=== PATIENT | male | born 1965 | race Caucasian/White ===

== ENCOUNTER 2019-08-23 08:35 | Emergency (ER) | payer SELFPAY ==
[2019-08-23 08:48] VITALS: BP 152/96; PULSE 96; RESP 16; TEMP 36.6; O2SAT 99; BMI 19.4
--- NOTE | 2019-08-23 08:55 | CT_ITS ---
WS: [id number] CT ABDOMEN AND PELVIS NONCONTRAST HISTORY: R flank pain; urinary retention TECHNIQUE: Imaging performed through the abdomen and pelvis. Coronal and sagittal reformats are submi tted. All CT scans at [facility] use at least one of these dose optimization techniques: automated exposure control; mA and/or kV adjustment per patient size (includes targeted exams where d ose is matched to clinical indication); or iterative reconstruction. DLP: 502.76 mGy.cm COMPARISON: None available. Lower thorax: Chronic emphysematous changes at the lung bases. No mass or pulmonary nodule or pneumon ia. No pleural effusion. Heart size is normal. Small hiatal hernia. Liver: Normal, no mass or intrahepatic dilatation. Gallbladder: Unremarkable. Pancreas: Poorly visualized. Spleen: Normal. Adrenal glands: Normal RIGHT adrenal gland. Low-attenuation mass measuring 3.3 x 2.2 cm in the LEFT a drenal gland. Hounsfield units are negative. Right kidney: Normal size kidney. There are a few scattered 2 mm calcifications which are nonobstruct ing. No hydronephrosis. Left kidney: Normal size kidney. There are 2 mm calcifications in the renal pelvis which are nonobstr ucting. Mild atherosclerosis aorta with no aneurysm. Small shoddy retroperitoneal lymph nodes. Without contrast evaluation of lymphadenopathy would be dif ficult to visualize due to lack of fat. GI tract: No GI tract obstruction. The appendix is not visualized. Abdominal wall: Intact. Pelvis: Marked overdistention of the urinary bladder. Bladder extends over a length of 13.4 cm superi or inferior and transversely by 10.7 cm. Prostate gland is enlarged and indents the posterior bladder . Prostate gland measures at least 6.2 x 5.2 cm. Osseous structures: Straightening of the normal lumbar lordosis. Advanced degenerative changes at L5- S1. Prior rib fractures in the posterior LEFT 10th rib. CT/CT kidney stone [id number] IMPRESSION: 1. Markedly distended urinary bladder with prostate gland enlargement. Suspect bladder outlet obstruction. 2. Nonobstructing 2 mm renal stones. No hydronephrosis. 3. Atherosclerosis aorta. 4. Benign LEFT adrenal adenoma.
--- NOTE | 2019-08-23 08:55 | W.ED.MALEGU ---
Documented by User: ANCELMO Carney 08/23/19 11:54 HPI - Male Genitourinary General: Chief complaint: Urogenital-Male Stated complaint: POSS KIDNEY STONE Time Seen by Provider: 08/23/19 08:49 Source: patient Mode of arrival: ambulatory Limitations: no limitations History of Present Illness: HPI Narrative: Patient is a 53-year-old male who presents to ED today with complaints of urinary retention. Patient states a few days ago he had right flank pain and just assumed it was a kidney stone as he has a history of these. He states starting yesterday he has not been able to urinate much. States his last urination was upon arrival to the ED and could only urinate a few milliliters of urine. He is complaining of suprapubic pain and distention. He has no history of urinary retention or bladder outlet obstruction. Denies fever/chills. Onset (ago): hour(s) Duration: constant Location: abdomen Associated symptoms: Deny dysuria, nausea or vomiting Review of Systems Const: Denies: fever or chills GI: Reports: abdominal pain; Denies: nausea, vomiting or diarrhea : Reports: flank pain (resolved now), difficulty urinating, urinary urgency and urinary hesitancy; Denies: painful urination or urinary frequency Musc: Denies: neck pain or back pain Skin/Breast: Denies: rash Neuro: Denies: headache, numbness in extremities, weakness in extremities or changes in sensation PFS ED PFSH: Social History Smoking and tobacco status: current every day smoker Physical Exam Const: COMMON NORMALS: no apparent distress, average body habitus, oriented x3, no limitations, healthy appearing, alert and well nourished Resp: COMMON NORMALS: normal respiratory effort and clear to auscultation bilaterally AUSCULTATION: clear to auscultation bilaterally Cardio: COMMON NORMALS: regular rate and regular rhythm RATE: regular rate RHYTHM: regular rhythm GI: COMMON NORMALS: normal to inspection, nondistended, normoactive bowel sounds, soft to palpation and no hepatosplenomegaly PALPATION: Yes soft, Yes tender (suprapubic ), Yes no hepatosplenomegaly and Yes other (bladder distention ) : COMMON NORMALS: Yes no CVA tenderness BLADDER/KIDNEY EXAM: Yes no CVA tenderness Back/Pelvis: COMMON NORMALS: no CVA tenderness Extremity: COMMON NORMALS: normal to inspection Neuro: COMMON NORMALS: oriented x3 SENSORIUM/ORIENTATION: Yes alert Skin: COMMON NORMALS: no rashes or lesions noted GENERAL SKIN EXAM: no rashes or lesions noted Course ED course: sabillon inserted w/o difficulty by RN and 1200cc urine drained Vital Signs: Vital signs: Vital Signs Temperature 98 F 08/23/19 08:48 Pulse Rate 72 08/23/19 10:24 Respiratory Rate 16 08/23/19 10:24 Blood Pressure 121/74 08/23/19 10:24 Pulse Oximetry 98 08/23/19 10:24 MDM - Male MDM Narrative: Medical decision making narrative: Patient feels much better after Sabillon catheter placed. 1200 cc urine was drained. CT scan shows a bladder outlet obstruction due to enlarged prostate. Patient's urine is clean. Labs are non-concerning at this time. We will keep Sabillon in place and have patient follow-up with Dr. Gil. Lab Data: Labs: Lab Results 08/23/19 08/23/19 08/23/19 Range/Units 09:05 09:20 09:20 WBC 12.0 H (4.0-10.0) 10^3/ uL RBC 4.87 (4.1-5.3) 10^6/u L Hgb 14.7 (11.7-16.6) g/dL Hct 44.3 (42.0-52.0) % MCV 91.0 (80-94) fL MCH 30.2 (28.0-34.0) pg MCHC 33.2 (30.0-36.0) g/dL RDW 13.6 (12.1-15.1) % Plt Count 426 H (130-400) 10^3/c mm MPV 9.1 (7.4-10.4) fL Neut % (Auto) 82.7 % Lymph % (Auto) 11.5 % Charles % (Auto) 4.6 % Eos % (Auto) 0.1 % Baso % (Auto) 0.8 % Neut # (Auto) 9.9 H (1.8-7.7) 10^3/u L Lymph # (Auto) 1.4 (0.8-4.8) 10^3/u L Charles # (Auto) 0.6 (0.2-0.9) 10^3/u L Eos # (Auto) 0.0 (0.0-0.8) 10^3/u L Baso # (Auto) 0.1 (0.0-0.1) 10^3/u L Nucleated RBC % (a uto) 0 % Nucleated RBCs # 0.0 /100WBC Sodium 135 L (136-145) mmol/L Potassium 4.1 (3.5-5.1) mmol/L Chloride 99 (98-107) mmol/L Carbon Dioxide 23 (22-29) mmol/L Anion Gap 17.1 (5-19) BUN 15 (6-20) mg/dL Creatinine 0.9 (0.7-1.2) mg/dL GFR Calculation 87.6 L (90-130) mL/min Glucose 140 H (65-115) mg/dL Calcium 10.2 (8.5-10.5) mg/dL Total Bilirubin 0.4 (0.15-1.2) mg/dL AST 18 (0-40) U/L ALT 13 (0-41) U/L Alkaline Phosphata se 79 (40-130) IU/L Total Protein 8.4 (6.6-8.7) g/dL Albumin 4.3 (3.5-5.2) g/dL Globulin 4.1 (1.3-4.6) g/dL Urine Color Yellow (Yellow) Urine Appearance Clear (CLEAR) Urine pH 7 (5-7) Ur Specific Gravit y 1.010 (1.005-1.030) Urine Protein Neg (Negative) Urine Glucose (UA) Norm (Normal) Urine Ketones Negative (Negative) Urine Blood Neg (Negative) Urine Nitrate Negative (Negative) Urine Bilirubin Neg (NEGATIVE) Urine Urobilinogen Norm (Negative) mg/dL Ur Leukocyte Noreen ase Negative (Negative) Imaging Data: CT Abd/Pel: Radiologist's impression: [address] [address] [address] Scan Report Signed Patient: Volodymyr Stratton Unit #: [id number] : [id number] Age/Sex: 53 / M ADM Date: 08/23/19 Loc: ER Room/Bed: Attending Dr: Ordering Provider/Ordering MD: Katherine Rai Date of Service: 08/23/19 Procedure(s): CT kidney stone [id number] Accession Number(s): [id number] Report Number: [id number] WS: [id number] CT ABDOMEN AND PELVIS NONCONTRAST HISTORY: R flank pain; urinary retention TECHNIQUE: Imaging performed through the abdomen and pelvis. Coronal and sagittal reformats are submitted. All CT scans at [facility] use at least one of these dose optimization techniques: automated exposure control; mA and/or kV adjustment per patient size (includes targeted exams where dose is matched to clinical indication); or iterative reconstruction. DLP: 502.76 mGy.cm COMPARISON: None available. Lower thorax: Chronic emphysematous changes at the lung bases. No mass or pulmonary nodule or pneumonia. No pleural effusion. Heart size is normal. Small hiatal hernia. Liver: Normal, no mass or intrahepatic dilatation. Gallbladder: Unremarkable. Pancreas: Poorly visualized. Spleen: Normal. Adrenal glands: Normal RIGHT adrenal gland. Low-attenuation mass measuring 3.3 x 2.2 cm in the LEFT adrenal gland. Hounsfield units are negative. Right kidney: Normal size kidney. There are a few scattered 2 mm calcifications which are nonobstructing. No hydronephrosis. Left kidney: Normal size kidney. There are 2 mm calcifications in the renal pelvis which are nonobstructing. Mild atherosclerosis aorta with no aneurysm. Small shoddy retroperitoneal lymph nodes. Without contrast evaluation of lymphadenopathy would be difficult to visualize due to lack of fat. GI tract: No GI tract obstruction. The appendix is not visualized. Abdominal wall: Intact. Pelvis: Marked overdistention of the urinary bladder. Bladder extends over a length of 13.4 cm superior inferior and transversely by 10.7 cm. Prostate gland is enlarged and indents the posterior bladder. Prostate gland measures at least 6.2 x 5.2 cm. Osseous structures: Straightening of the normal lumbar lordosis. Advanced degenerative changes at L5-S1. Prior rib fractures in the posterior LEFT 10th rib. CT/CT kidney stone [id number] IMPRESSION: 1. Markedly distended urinary bladder with prostate gland enlargement. Suspect bladder outlet obstruction. 2. Nonobstructing 2 mm renal stones. No hydronephrosis. 3. Atherosclerosis aorta. 4. Benign LEFT adrenal adenoma. Dictated By: Rianna Polk DO Signed By: Rianna Polk DO Signed Date/Time: 08/23/19925 DD/ 2 Discharge Plan Discharge Patient Disposition: Home, Self-Care Clinical Impression: Bladder outlet obstruction Condition: Stable Prescriptions: New Flomax 0.4 mg capsule 0.4 mg PO DAILY Qty: 14 RF: 0 Discharge Orders: Discharge Order (Routine); Ordered 08/23/19 Ordered By: Katherine Rai Referrals: Yasir Gil MD [Physician] - Activity Restrictions/Additional Instructions: As discussed Sabillon needs to stay in place until seen by Dr. Gil. Case management should contact you today or tomorrow to get you set up with this appointment. Return to the emergency department at any time if you began noticing that your Sabillon catheter is not draining appropriately. Also return to the emergency department for abdominal pain, flank pain, fevers greater than 100.4, or any other concerns you may have. Discharge Date/Time: 08/23/19 10:24 Coding Level of Care Code ED Organic Chemistry Teacher for Chg Fwd Exam Detailed Documented by User: Kevin Patel DO 08/23/19 12:43 HPI - Male Genitourinary General: Chief complaint: Urogenital-Male Stated complaint: POSS KIDNEY STONE Time Seen by Provider: 08/23/19 08:49 PFSH ED PFSH: Social History Smoking and tobacco status: current every day smoker Course ED course: Discussed with ANCELMO Carney. Reviewed chart assessment and plan and agree with her assessment and disposition of the patient. Vital Signs: Vital signs: Vital Signs Temperature 98 F 08/23/19 08:48 Pulse Rate 72 08/23/19 10:24 Respiratory Rate 16 08/23/19 10:24 Blood Pressure 121/74 08/23/19 10:24 Pulse Oximetry 98 08/23/19 10:24 MDM - Male Lab Data: Labs: Lab Results 08/23/19 08/23/1908/23/20 Range/Units 09:05 09:20 09:20 WBC 12.0 H (4.0-10.0) 10^3/ uL RBC 4.87 (4.1-5.3) 10^6/u L Hgb 14.7 (11.7-16.6) g/dL Hct 44.3 (42.0-52.0) % MCV 91.0 (80-94) fL MCH 30.2 (28.0-34.0) pg MCHC 33.2 (30.0-36.0) g/dL RDW 13.6 (12.1-15.1) % Plt Count 426 H (130-400) 10^3/c mm MPV 9.1 (7.4-10.4) fL Neut % (Auto) 82.7 % Lymph % (Auto) 11.5 % Charles % (Auto) 4.6 % Eos % (Auto) 0.1 % Baso % (Auto) 0.8 % Neut # (Auto) 9.9 H (1.8-7.7) 10^3/u L Lymph # (Auto) 1.4 (0.8-4.8) 10^3/u L Charles # (Auto) 0.6 (0.2-0.9) 10^3/u L Eos # (Auto) 0.0 (0.0-0.8) 10^3/u L Baso # (Auto) 0.1 (0.0-0.1) 10^3/u L Nucleated RBC % (a uto) 0 % Nucleated RBCs # 0.0 /100WBC Sodium 135 L (136-145) mmol/L Potassium 4.1 (3.5-5.1) mmol/L Chloride 99 (98-107) mmol/L Carbon Dioxide 23 (22-29) mmol/L Anion Gap 17.1 (5-19) BUN 15 (6-20) mg/dL Creatinine 0.9 (0.7-1.2) mg/dL GFR Calculation 87.6 L (90-130) mL/min Glucose 140 H (65-115) mg/dL Calcium 10.2 (8.5-10.5) mg/dL Total Bilirubin 0.4 (0.15-1.2) mg/dL AST 18 (0-40) U/L ALT 13 (0-41) U/L Alkaline Phosphata se 79 (40-130) IU/L Total Protein 8.4 (6.6-8.7) g/dL Albumin 4.3 (3.5-5.2) g/dL Globulin 4.1 (1.3-4.6) g/dL Urine Color Yellow (Yellow) Urine Appearance Clear (CLEAR) Urine pH 7 (5-7) Ur Specific Gravit y 1.010 (1.005-1.030) Urine Protein Neg (Negative) Urine Glucose (UA) Norm (Normal) Urine Ketones Negative (Negative) Urine Blood Neg (Negative) Urine Nitrate Negative (Negative) Urine Bilirubin Neg (NEGATIVE) Urine Urobilinogen Norm (Negative) mg/dL Ur Leukocyte Noreen ase Negative (Negative) Discharge Plan Discharge Patient Disposition: Home, Self-Care Clinical Impression: Bladder outlet obstruction Condition: Stable Prescriptions: New Flomax 0.4 mg capsule 0.4 mg PO DAILY Qty: 14 RF: 0 Discharge Orders: Discharge Order (Routine); Ordered 08/23/19 Ordered By: Katherine Rai Referrals: Yasir Gil MD [Physician] - Activity Restrictions/Additional Instructions: As discussed Sabillon needs to stay in place until seen by Dr. Gil. Case management should contact you today or tomorrow to get you set up with this appointment. Return to the emergency department at any time if you began noticing that your Sabillon catheter is not draining appropriately. Also return to the emergency department for abdominal pain, flank pain, fevers greater than 100.4, or any other concerns you may have. Discharge Date/Time: 08/23/19 10:24 Coding Level of Care Code ED Organic Chemistry Teacher for Mirella Fwd Exam Detailed
[2019-08-23 09:07] VITALS: O2SAT 98
[2019-08-23 09:10] LABS: Add Urine Microscopic? NO
[2019-08-23 09:14] LABS: Urine Appearance Clear (CLEAR); Urine Color Yellow (Yellow); pH Urine 7 (5-7)
[2019-08-23 09:15] LABS: Bilirubin Urine Neg (NEGATIVE); Blood Urine Neg (Negative); Glucose Urine UA Norm (Normal); Ketones Urine Negative (Negative); Leukocyte Esterase Urine Negative (Negative); Nitrate Urine Negative (Negative); Protein Urine Neg (Negative); Urobilinogen Urine Norm (Negative)
[2019-08-23 09:25] LABS: Basophils # 0.1 10^3/uL (0.0-0.1); Basophils % 0.8 %; Eosinophils % 0.1 %; Hematocrit 44.3 % (42.0-52.0); Hemoglobin 14.7 g/dL (11.7-16.6); Lymphocytes # 1.4 10^3/uL (0.8-4.8); Lymphocytes % 11.5 %; Mean Corpuscular HGB Conc 33.2 g/dL (30.0-36.0); Mean Corpuscular Hemoglobin 30.2 pg (28.0-34.0); Mean Platelet Volume 9.1 fL (7.4-10.4); Monocytes # 0.6 10^3/uL (0.2-0.9); Monocytes % 4.6 %; Neutrophils # 9.9 10^3/uL (1.8-7.7); Neutrophils % 82.7 %; Nucleated Red Blood Cells % 0 %; Platelet Count 426 10^3/cmm (130-400); Red Blood Count 4.87 10^6/uL (4.1-5.3); Red Cell Distribution Width 13.6 % (12.1-15.1)
[2019-08-23 09:43] LABS: Alanine Aminotransferase 13 U/L (0-41); Albumin Level 4.3 g/dL (3.5-5.2); Alkaline Phosphatase 79 IU/L (40-130); Anion Gap 17.1 (5-19); Aspartate Amino Transferase 18 U/L (0-40); Blood Urea Nitrogen 15 mg/dL (6-20); Calcium 10.2 mg/dL (8.5-10.5); Carbon Dioxide 23 mmol/L (22-29); Chloride 99 mmol/L (98-107); Globulin 4.1 g/dL (1.3-4.6); Glomerular Filtration Rate 87.6 mL/min (90-130); Glucose 140 mg/dL (65-115); Potassium 4.1 mmol/L (3.5-5.1); Sodium 135 mmol/L (136-145); Total Bilirubin 0.4 mg/dL (0.15-1.2); Total Protein 8.4 g/dL (6.6-8.7)
[2019-08-23 10:24] VITALS: BP 121/74; PULSE 72; RESP 16; O2SAT 98
--- NOTE | 2019-08-25 08:45 | DCPLANNER ---
manager specialty had message to schedule a follow up appointment for patient with Dr. Gil. Bryant perez called the office of Dr. Gil, spoke with Chelsea, gave clinic patients information. manager specialty was told that patients information would be printed and given to Abby for review. Clinic will call patient with appointment information. manager specialty will call for appointment information.
--- NOTE | 2019-08-29 13:56 | DCPLANNER ---
Patient has a follow up appointment scheduled for Friday, September 06, [address] at 7:[address] Gil. Clinic will call patient with the appointment information.
== END 2019-08-23 10:24 | disposition home or self-care (01) ==
PROVIDERS: Emergency Provider Physician Assistant
DX: N40.1 Benign prostatic hyperplasia with lower urinary tract symptoms (principal); N13.8 Other obstructive and reflux uropathy; F17.200 Nicotine dependence, unspecified, uncomplicated
CPT/HCPCS: 36415; 51702; 51798; 74176; 80053; 81003; 85025; 99283

== ENCOUNTER 2019-09-06 06:59 | Outpatient (CLI) | payer SELFPAY ==
--- NOTE | 2019-09-06 07:00 | XRR_ITS ---
PROCEDURE INFORMATION: Exam: XR Abdomen, 1 View Exam date and time: 09/06/2019 7:07 AM Age: 53 years old Clinical indication: Condition or disease; Kidney or ureter condition; Calculus (stone) in kidney; Additional info: Bilateral renal stones TECHNIQUE: Imaging protocol: XR of the abdomen. Views: Frontal supine view of the abdomen. 1 View. COMPARISON: CT kidney stone [id number] 08/23/2019 9:17 AM FINDINGS: Gastrointestinal tract: No dilated gas-filled loops of bowel. Organs: There are single 2 mm radiopaque calculi in both kidneys. The prior CT scan demonstrated additional calculi but these are radiographically in apparent. No ureteral calculus identified. Bones/joints: Multilevel bridging osteophytes in the lumbar spine. XR/XR KUB [id number] IMPRESSION: Bilateral nephrolithiasis.
== END 2019-09-06 07:00 | disposition home or self-care (01) ==
LOC: RAD 07:03
PROVIDERS: Visit Provider Urology
DX: N20.0 Calculus of kidney (principal)
CPT/HCPCS: 74018

== ENCOUNTER 2019-09-19 08:51 | Outpatient (CLI) | payer SELFPAY ==
--- NOTE | 2019-09-19 08:56 | CT_ITS ---
WS: [id number] CT pelvis TECHNIQUE: Contrast-enhanced CT of the pelvis with coronal and sagittal reformatted images. CLINICAL INFORMATION: Perirectal/Prostatic abscess COMPARISON: None. DLP: 238.[address] scans at [facility] use at least one of these dose optimization techniques: automat ed exposure control; mA and/or kV adjustment per patient size (includes targeted exams where dose is matched to clinical indication); or iterative reconstruction. FINDINGS: Heterogeneously enhancing enlarged prostate with central low attenuation areas suspicious for prostat itis with phlegmon/abscess. Largest area of low attenuation suspected abscess measures 12.4 x 14.6mm. No drainable fluid collections. Enlarged seminal vesicles. Tram track enhancement along the penile b ulb and corpus spongiosum may be infectious or reactive. Nodular prostate with indentation on the undersurface of the bladder. Diffuse bladder wall thickening consistent with bladder outlet obstruction. No inflammatory stranding and induration in the surround ing periprostatic fat. Diffuse thickening of the rectum likely secondary to prostatitis. No significant pelvic sidewall or inguinal lymphadenopathy. CT/CT pelvis w con* [id number] IMPRESSION: 1. Diffuse enlarged heterogeneously enhancing prostate with areas of low atten uation suspicious for prostatitis with prostate abscess. 2. Mild induration and inflammatory stranding in the periprostatic fat. Associ ated diffuse thickening of the rectum likely reactive. 3. Enhancement along the penile bulb and corpus spongiosum likely infectious o r inflammatory. 4. Nodular prostate with indentation on the undersurface of the bladder. 5. Diffuse bladder wall thickening likely due to bladder outlet obstruction.
[2019-09-19] MEDS: iohexol 300 mg/mL 100 mL Btl IV (10:56)
[2019-09-19] MEDS: iohexol 300 mg/mL 50 mL Btl PO (10:57)
== END 2019-09-19 08:52 | disposition home or self-care (01) ==
LOC: RAD 08:54
PROVIDERS: PCP Nurse Practitioner; Visit Provider Urology
DX: K61.1 Rectal abscess (principal)
CPT/HCPCS: 72193; 80053; 81001

== ENCOUNTER 2019-09-21 17:24 | Inpatient (IN) | payer SELFPAY ==
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
[2019-09-21 17:38] VITALS: BMI 18.6
[2019-09-21 18:24] LABS: Basophils # 0.1 10^3/uL (0.0-0.1); Basophils % 0.4 %; Eosinophils # 0.1 10^3/uL (0.0-0.8); Eosinophils % 0.2 %; Hematocrit 36.5 % (42.0-52.0); Hemoglobin 12.1 g/dL (11.7-16.6); Lymphocytes # 1.8 10^3/uL (0.8-4.8); Lymphocytes % 7.6 %; Mean Corpuscular HGB Conc 33.2 g/dL (30.0-36.0); Mean Corpuscular Hemoglobin 30.6 pg (28.0-34.0); Mean Corpuscular Volume 92.2 fL (80-94); Mean Platelet Volume 8.8 fL (7.4-10.4); Monocytes # 1.1 10^3/uL (0.2-0.9); Monocytes % 4.8 %; Neutrophils # 20.3 10^3/uL (1.8-7.7); Neutrophils % 86.5 %; Nucleated Red Blood Cells % 0 %; Platelet Count 480 10^3/cmm (130-400); Red Blood Count 3.96 10^6/uL (4.1-5.3); Red Cell Distribution Width 13.5 % (12.1-15.1); White Blood Count 23.5 10^3/uL (4.0-10.0)
[2019-09-21] MEDS: docusate sodium 100 mg Capsule PO (18:34)
[2019-09-21] MEDS: dextrose 5%-sod chloride 0.9% 1,000 ML 75 ML IV (18:34)
[2019-09-21] MEDS: piperacillin-tazobactam 3.375 GM in sodium chloride 0.9% (plus) 50 ML IV (18:35)
[2019-09-21 18:38] VITALS: RESP 18
[2019-09-21] MEDS: morphine 4 mg/mL SDV 1 mL 2 MG IVP (18:38)
[2019-09-21 18:48] LABS: Alanine Aminotransferase 8 U/L (0-41); Albumin Level 3.6 g/dL (3.5-5.2); Alkaline Phosphatase 78 IU/L (40-130); Anion Gap 15.4 (5-19); Aspartate Amino Transferase 9 U/L (0-40); Blood Urea Nitrogen 21 mg/dL (6-20); Carbon Dioxide 25 mmol/L (22-29); Chloride 103 mmol/L (98-107); Globulin 3.2 g/dL (1.3-4.6); Glucose 119 mg/dL (65-115); Osmolality Calculated 288 mOsm/kg (285-295); Potassium 3.4 mmol/L (3.5-5.1); Sodium 140 mmol/L (136-145); Total Bilirubin 0.3 mg/dL (0.15-1.2); Total Protein 6.8 g/dL (6.6-8.7)
[2019-09-21 20:00] VITALS: BP 133/73; PULSE 107; RESP 16; TEMP 37; O2SAT 96
[2019-09-21] MEDS: metroNIDAZOLE 500 MG Tablet PO (20:37)
[2019-09-21] MEDS: HYDROcodone-acetaminophen 5-325 mg Tablet 1 TAB PO (20:37)
[2019-09-22] VITALS (20 sets, daily range): BP systolic 132–160; BP diastolic 76–94; PULSE 56–102; RESP 14–24; TEMP 36.1–37.4; O2SAT 94–100
[2019-09-22] MEDS: morphine 4 mg/mL SDV 1 mL 2 MG IVP ×4 (00:54→16:18)
[2019-09-22] MEDS: piperacillin-tazobactam 3.375 GM in sodium chloride 0.9% (plus) 50 ML IV ×3 (05:54→18:23)
[2019-09-22 06:15] LABS: Basophils # 0.1 10^3/uL (0.0-0.1); Basophils % 0.4 %; Eosinophils # 0.1 10^3/uL (0.0-0.8); Eosinophils % 0.6 %; Hematocrit 35.5 % (42.0-52.0); Hemoglobin 11.8 g/dL (11.7-16.6); Lymphocytes # 1.8 10^3/uL (0.8-4.8); Lymphocytes % 8.5 %; Mean Corpuscular HGB Conc 33.2 g/dL (30.0-36.0); Mean Corpuscular Hemoglobin 30.3 pg (28.0-34.0); Mean Corpuscular Volume 91.3 fL (80-94); Mean Platelet Volume 8.7 fL (7.4-10.4); Monocytes # 1.2 10^3/uL (0.2-0.9); Monocytes % 5.7 %; Neutrophils # 17.4 10^3/uL (1.8-7.7); Neutrophils % 84.2 %; Nucleated Red Blood Cells % 0 %; Platelet Count 476 10^3/cmm (130-400); Red Blood Count 3.89 10^6/uL (4.1-5.3); Red Cell Distribution Width 13.7 % (12.1-15.1); White Blood Count 20.6 10^3/uL (4.0-10.0)
--- NOTE | 2019-09-22 06:54 | PM.PN ---
Subjective Subjective: Interval history: Afebrile overnight. Still with significant rectal pain. Tolerating catheter well. White count decreased from 23,000 down to 20,000 this morning. Reviewed current data with him. Pending information includes CT scan this morning to reevaluate for increased collection. Will update as information available specifically CT scan. Vitals/I&O/Wt Last Vital Signs Temp 98.8 F 09/22/19 04:00 Pulse 98 09/22/19 04:00 Resp 18 09/22/19 05:46 BP 152/88 09/22/19 04:00 Pulse Ox 96 09/22/19 04:00 09/21/19 09/21/19 09/22/19 14:59 22:59 06:59 Intake Total 50 / 50 1110.417 / 1160.417 Output Total 400 / 400 Balance 50 / 50 710.417 / 760.417 Weight last 48 hrs Weight 119 lb 1.6 oz Physical Exam Const: COMMON NORMALS: no apparent distress, alert and well nourished GENERAL APPEARANCE: well kempt and well developed ORIENTATION/CONSCIOUSNESS: not confused Resp: COMMON NORMALS: normal respiratory effort EFFORT & INSPECTION: No labored and No actively coughing Neuro: SENSORIUM/ORIENTATION: Yes alert Psych: COMMON NORMALS: mental status grossly normal APPEARANCE: Yes grossly normal and Yes well kempt ATTITUDE: Yes calm and Yes engaged Urinary Catheter Management^: [place]illon: Cath Placed During This Visit: yes Reason for Continuing Indwelling Catheter: Acute Urinary Retention or Obstruction Urinary Catheter Date of Insertion: 09/21/19 Urinary Catheter Time of Insertion: 20:23 Data : 09/22/19 05:59 09/21/19 18:15 A&P Assessment and plan (1) Prostatic abscess: Failure of oral antibiotics after spontaneous drainage of abscess Elevated WBC No evidence of sepsis CT scan pending this morning. Decision following that regarding potential for operative intervention. Status: Acute Code(s): N41.2 - Abscess of prostate (2) BPH NOS w/o ur obs/LUTS: Status: Acute Code(s): N40.0 - Benign prostatic hyperplasia without lower urinary tract symptoms (3) Urinary retention: Place sabillon. Status: Acute Code(s): R33.9 - Retention of urine, unspecified Attestations Medical Necessity Statement*: Failed outpatient medical therapy for prostatic abscess after spontaneous drainage. Coding Level of Care Code Acute Transportation Sales Consultant for Chg Fwd Diagnoses Prostatic abscess N41.2 BPH NOS w/o ur obs/LUTS N40.0 Urinary retention R33.9
--- NOTE | 2019-09-22 07:30 | CT_ITS ---
WS: [id number] CT PELVIS WITH CONTRAST. HISTORY: Worsening symptoms of prosthetic abscess. TECHNIQUE: Contiguous imaging is performed of the pelvis with contrast. Coronal and sagittal reformat s are reviewed. All CT scans at [facility] use at least one of these dose optimization te chniques: automated exposure control; mA and/or kV adjustment per patient size (includes targeted exa ms where dose is matched to clinical indication); or iterative reconstruction. DLP: 341.54 mGy.cm Contrast: Omnipaque 300; 95 mL IV. COMPARISON: 09/19/2019 Pineda catheter has been placed since the prior examination. Pineda catheter is deviated to the RIGHT o f midline due to the enhancing complex mass which is contiguous with the prostate gland extending int o the urinary bladder. Peripherally enhancing mass with cystic components measures 6.1 x 4.1 x 3.7 cm and has increased slightly in size since the prior study. There is diffuse thickening of the bladder wall. The cystic collections seen within the central prostate gland as described on the prior study are still evident but less well formed. Prostate gland is enlarged and heterogeneous with enhancement . Enhancement and edema within the perirectal and periprostatic soft tissues. Enhancement and edema ext ending into the base of the penis does appear to have improved slightly. Constipation. No adenopathy identified. CT/CT pelvis w con* [id number] IMPRESSION: 1. Slight enlargement of the prostate abscess with extension into the urinary bladder. Area of enhancement suspicious for prostatitis/abscess measures 6.1 x 4.1 x 3.7 cm. 2. Introduction of the Pineda catheter into the urinary bladder which is displa mina to the RIGHT of midline by the prostate abscess. 3. No significant improvement in the perirectal and periprostatic fat strandin g.
[2019-09-22] MEDS: dextrose 5%-sod chloride 0.9% 1,000 ML 75 ML IV (08:07)
[2019-09-22] MEDS: iohexol 300 mg/mL 100 mL Btl IV (08:28)
[2019-09-22] MEDS: iohexol 300 mg/mL 50 mL Btl PO (08:29)
[2019-09-22] MEDS: HYDROcodone-acetaminophen 5-325 mg Tablet 2 TAB PO ×2 (09:32→22:18)
[2019-09-22] MEDS: docusate sodium 100 mg Capsule PO ×2 (09:32→18:23)
[2019-09-22] MEDS: metroNIDAZOLE 500 MG Tablet PO (09:32)
--- NOTE | 2019-09-22 09:45 | PC.CHAP ---
Pastoral Care Encounter/Spiritual Assessment Type of Contact [] Declined lead customer service representative visit [] Patient/Family/Request visit [] Outpatient visit [] Follow-up visit [] Physician referral [] Code/Alert [x] Routine visit [] Staff referral [] Actively dying [] Patient sleeping [] Family support [] [] Out of room [] Palliative care [] [] Receiving care in room [] Pre-surgical visit [] Trauma [] Long length of stay [] ICU visit [] Other: Relational/Emotional Strength [x] Patient feels connected with others/family/visitors/staff [] Distress [] Loneliness/isolation [] Abandonment Spirituality of Patient [x] Person of Dennise [] Attends Amish of their Dennise [x] Believes in Prayer [] Reads Bible or Protestant materials [] There are Spiritual issues 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 Interventions [x] Prayer [x] Active listening [] Non-anxious presence [] Spiritual/emotional support [] Crisis/trauma care [] Spiritual counseling [] Bereavement support [] Provided bereavement packet [] Provided Bible/devotional materials [] Provided toy/stuffed animal, coloring book to patient or family member [] Provided Communion [] Anointing/[place] [] Salvation [x] Completed spiritual assessment [] Other: Impact on Illness or Injury [] Angry [] Fearful [] Anxious [] Often cries [] Exhaustion [] Unable to work [] Unable to attend bahai [] Unable to walk/stand [] Unable to read [] Unable to drive [] Unable to eat/drink [] Unable to sleep [] Unable to be with family [] Patient intubated [] Other: Summary patient has alot of pain Time spent with patient 15 min
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
[2019-09-22] MEDS: sodium chloride 0.9% 1,000 ML 30 ML IV (13:28)
--- NOTE | 2019-09-22 14:18 | PM.OP ---
Operative Report Date of procedure: September 22, 2019 Pre-op Diagnosis: Pelvic abscess Post-op diagnosis: other (Rectal polyp at 25 cm, small mucosal indentation at the dentate line at 9:00 o'clock without evidence of pus or complication with any abscess cavity, otherwise normal-looking mucosa) Post-op Findings: Examination under anesthesia &flex sigmoidoscopy Rectal polyp adenomatous about 20 cm removed by hot snare Small dimple at the dentate line w/o communication No evidence of pus in the anal canal normal-looking mucosa Anterior bulge ill-defined on the left side well defined on the right side and examining finger can reach above it Likely prostate phlegmon Procedure Done: Examination under anesthesia and flex sigmoidoscopy with polypectomy using hot snare Specimens removed/disposition: Rectal polyp Surgeon: Brandon Vides Teenage Babysitter: Gracie YOUNG GI nurse Lakshmi surgical assistant certified Anesthesia: General (expert medical writer [place]) Complications: No immediate complications Condition: stable Disposition: floor Brief History: This is a 54 years old gentleman diagnosed with pelvic abscess including the prostate gland involvement with auto drainage per patient's description per rectum, general surgery was consulted by urology service for further evaluation in the form of examination under anesthesia to rule out potential rectal involvement. Informed consent per chart Procedure: Patient was identified in the holding area, was taken to the OR placed first in supine position, patient was already on IV antibiotics, time-out was done in the presence of Dr. Gil and myself verifying the patient's name,date of , and procedure, all were in agreement.Patient was then intubated by the anesthesia provider, patient was placed in lithotomy position and all pressure points were padded. prep and drape of the perineum was done under the usual sterile technique Started by digital rectal examination anterior anorectal fullness was appreciated with ill-defined left lateral edge in comparison to the right, examining finger was able to reach above the anterior anorectal fullness, the swelling was firm in consistency with no obvious fluctuation clinically detected and no hard nodules were appreciated. A lubricated self-retaining proctoscope was inserted, there was no evidence of hemorrhoidal disease or fistulae or sinuses or intraluminal masses,or evidence of pus. At this point a flex sigmoidoscopy was introduced under direct visualization and there was a rectal polyp appreciated about 20 cm at that point a hot snare polypectomy was done and the polyp was retrieved sent for permanent pathology, on my way out I appreciated an indentation at 9:00 at the dentate line, used endoscopic forceps for palpation there was no communication with any cavity and at that point I elected to finish the procedure and handed the case over to Dr. Gli to perform his part. Please see separate urology dictation. Counts of instruments,needles and sponges were completed at the end of the my procedure I was present for the my whole entire procedure
[2019-09-22] MEDS: lidocaine 2% Urojet 20 mL TOPICAL (14:46)
--- NOTE | 2019-09-22 15:27 | P.OP_ITS ---
Operative Report Date of procedure: September 22, 2019 Pre-op Diagnosis: Prostatic abscess Post-op diagnosis: same Procedure Done: Cystoscopy, transurethral resection of prostate gland left lateral lobe with unroofing of deep prostatic tissue abscess Pathology: other (Prostatic chips) Surgeon: Yasir Gil Anesthesia: General Estimated blood loss: Less than 25 cc Urine output: Not measured Complications: None Findings: Enlarged (significantly so) left lateral lobe with friable characteristics but no obvious purulent drainage. Left lateral lobe resected deep into the prostatic tissue with a large amount of purulent material drained completely from multiple abscess cavities. 20 [place] three-way Ipneda catheter with CBI running was left indwelling at the completion of the procedure. Condition: stable Disposition: PACU Brief History: Volodymyr is a 54-year-old white male who I evaluated for the first time several weeks ago for urinary retention. He underwent a cystoscopy which showed enlarged prostate and no severe intra-vesicle findings otherwise. Had a very tender rectal exam. He presented back to the clinic having had a palpably enlarged cystic structure just inside the rectal verge that he said spontaneously drained per rectum. A CT scan of the pelvis revealed what appeared to be a small prostatic abscess but having been drained and and having a marked clinical improvement after spontaneous drainage he was placed on oral antibiotics with hope that this would be enough to complete the process. He called yesterday with increasing pain in the rectal area. No fever or chills but did have significant malaise. He was admitted to the hospital last night with IV antibiotics. White count was elevated at 23,000. He was afebrile. Did not appear to be septic. CT scan this morning again of his pelvis showed increasing prostatic abscess and this on to oral antibiotics (ciprofloxacin and Flagyl) It was recommended that he undergo cystoscopy transurethral abscess unroofing/resection of the prostate and scope by general surgery to confirm no residual rectal wall accumulation. Dr. Vides was consulted and agreed to evaluate and treat. Procedure: After urgent evaluation examination and obtaining of informed consent he was taken to the operating suite on 09/22/2019 where general anesthesia was administered without difficulty after appropriate timeout was performed, SCDs confirmed to be functioning, preoperative antibiotics administered, beta-markus protocol confirmed. He was prepped and draped in usual sterile fashion in dorsolithotomy position pain careful attention to avoiding pressure points. Dr. Vides performed his procedure in its entirety and this included anoscopy, sigmoidoscopy, excision of sigmoid polyp, probing of a dimple in the distal rectum that was felt potentially consistent with drainage tract. See his dictation. The patient was then reprepped and draped in usual sterile fashion. The 21 [place] cystoscope with 30 degree lens was introduced into the urethral meatus and advanced into the bladder under videoscopy. The urethra appeared to be normal. The prostatic fossa showed very enlarged friable left lateral lobe extending well into the bladder as consistent with CT scan findings. There was no obvious purulent drainage. The urethra presented calibrated with [place] sounds and easily accommodated 30 [place]. 2% lidocaine jelly was instilled into the urethra then a well-lubricated 25 [place] continuous flow resectoscope sheath with visual obturator in place was advanced into the bladder without difficulty. The bipolar gyrus system was utilized first with the supersect and 30 degree lens. Both orifices were easily identified well away from the resection site. The bulging left lateral lobe was in unroofed with the supersect and there was a large amount of purulent inspissated fluid drained. There were multiple areas in this 1 swipe that were draining and for that reason further resection including eventually the entire left lateral lobe from the bladder neck out to but not distal to the verumontanum was conducted. Resection was carried deep into the prostate. Eventually there was no further purulent material draining from the multiple prostatic sinuses . Some of the drainage looked to be more inspissated prostatic fluid and some of it was clearly infected fluid. Hemostasis was obtained with both the supersect and the button probe. All chips were evacuated from the bladder with any like evacuator and this was confirmed with visual inspection of the bladder. Hemostasis was visually confirmed. I had considered placing a suprapubic tube preoperatively but given the amount of the purulence drained I felt that it might be safer to place a Pineda catheter instead and with wide resection of the left lateral lobe and deep resection into the prostatic abscess I thought that the risk was considered below. A 20 [place] three-way Pineda catheter was then placed into the bladder without difficulty good function was confirmed and 30 cc placed in the balloon. Normal saline CBI was instituted. Efflux was clear to light pink. Already the procedure well without complications. He was awakened in the operating room and returned to the cover him in stable condition. PLANS: 1. Continue IV antibiotics, serial labs in hospital inpatient status due to the significance of his infection. 2. When safe to convert to oral antibiotics and try a voiding trial.
--- NOTE | 2019-09-22 15:31 | SUR.PHASEI ---
1527 PATIENT TO PACU AT THIS TIME. RR EVEN AND UNLABORED, ORAL AIRWAY IN PLACE, PLACED ON SIMPLE MASK AT 8L, SPO2 100%. PATIENT NOTED TO BE SLEEPING, PROTECTING AIRWAY, DOESN'T AROUSE TO VERBAL STIMULI. CATH IN PLACE WITH CBI RUNNING. CLEAR URINE NOTED TO DRAINAGE BAG.
--- NOTE | 2019-09-22 15:38 | SUR.PHASEI ---
1538 ORAL AIRWAY REMOVED AT THIS TIME. SPO2 100% AT THIS TIME ON SIMPLE MASK AT 8L.
--- NOTE | 2019-09-22 16:24 | SUR.PHASEI ---
1601 PATIENT TO MED SURG AT THIS TIME. RR EVEN AND UNLABORED. NO DISTRESS. PAIN 6/10 TO RECTUM. CBI RUNNING WITH [place]A ATTACHED. CLEAR URINE NOTE. PATIENT AMBULATORY FROM GURNEY TO BED WITH STEADY GAIT.
[2019-09-22 17:20] LABS: Basophils # 0.1 10^3/uL (0.0-0.1); Basophils % 0.3 %; Eosinophils # 0.1 10^3/uL (0.0-0.8); Eosinophils % 0.4 %; Hematocrit 38.2 % (42.0-52.0); Hemoglobin 12.5 g/dL (11.7-16.6); Lymphocytes # 0.8 10^3/uL (0.8-4.8); Lymphocytes % 4.1 %; Mean Corpuscular HGB Conc 32.7 g/dL (30.0-36.0); Mean Corpuscular Hemoglobin 30.9 pg (28.0-34.0); Mean Corpuscular Volume 94.3 fL (80-94); Mean Platelet Volume 8.7 fL (7.4-10.4); Monocytes # 0.5 10^3/uL (0.2-0.9); Monocytes % 2.4 %; Neutrophils # 17.8 10^3/uL (1.8-7.7); Neutrophils % 92.2 %; Nucleated Red Blood Cells % 0 %; Platelet Count 502 10^3/cmm (130-400); Red Blood Count 4.05 10^6/uL (4.1-5.3); Red Cell Distribution Width 13.5 % (12.1-15.1); White Blood Count 19.3 10^3/uL (4.0-10.0)
--- NOTE | 2019-09-22 17:46 | PC.NURSE ---
pt has had a total of 2200 output of sabillon bag and a total of 2000 in, urine is pale yellow and clear with no clots seen in urine. pt has not had to have sabillon irrigated at this time.
[2019-09-22 18:04] LABS: Alanine Aminotransferase 7 U/L (0-41); Albumin Level 3.2 g/dL (3.5-5.2); Alkaline Phosphatase 73 IU/L (40-130); Anion Gap 13.7 (5-19); Aspartate Amino Transferase 10 U/L (0-40); Blood Urea Nitrogen 11 mg/dL (6-20); Calcium 8.8 mg/dL (8.5-10.5); Carbon Dioxide 26 mmol/L (22-29); Chloride 102 mmol/L (98-107); Globulin 3.1 g/dL (1.3-4.6); Glomerular Filtration Rate 116.7 mL/min (90-130); Glucose 132 mg/dL (65-115); Osmolality Calculated 284 mOsm/kg (285-295); Potassium 3.7 mmol/L (3.5-5.1); Sodium 138 mmol/L (136-145); Total Bilirubin 0.3 mg/dL (0.15-1.2); Total Protein 6.3 g/dL (6.6-8.7)
[2019-09-23] VITALS: BP 120/82; PULSE 76; RESP 18; TEMP 36.7; O2SAT 97
--- NOTE | 2019-09-23 00:45 | PC.NURSE ---
Pt has continuous CBI running. CBI input is 1450 and output is 1000. Output is clear, slightly pink, no clots noted. Pt denies any complaints of pressure, fullness, or pain in the bladder. Pt is tolerating procedure well with no s/s of distress.
[2019-09-23] MEDS: piperacillin-tazobactam 3.375 GM in sodium chloride 0.9% (plus) 50 ML IV ×3 (02:55→17:53)
[2019-09-23 04:00] VITALS: BP 118/72; PULSE 72; RESP 17; TEMP 36.7; O2SAT 97
--- NOTE | 2019-09-23 05:01 | PC.NURSE ---
Pt resting in bed, sabillon draining clear pale yellow urine, no clots noted, pt denies any pain or discomfort at this time.
[2019-09-23 05:28] LABS: Basophils % 0.2 %; Eosinophils % 0.1 %; Hematocrit 36.7 % (42.0-52.0); Hemoglobin 12.2 g/dL (11.7-16.6); Lymphocytes # 1.3 10^3/uL (0.8-4.8); Lymphocytes % 8.7 %; Mean Corpuscular HGB Conc 33.2 g/dL (30.0-36.0); Mean Corpuscular Hemoglobin 30.7 pg (28.0-34.0); Mean Corpuscular Volume 92.2 fL (80-94); Mean Platelet Volume 8.8 fL (7.4-10.4); Monocytes # 0.8 10^3/uL (0.2-0.9); Monocytes % 5.7 %; Neutrophils # 12.4 10^3/uL (1.8-7.7); Neutrophils % 84.8 %; Nucleated Red Blood Cells % 0 %; Platelet Count 527 10^3/cmm (130-400); Red Blood Count 3.98 10^6/uL (4.1-5.3); Red Cell Distribution Width 13.4 % (12.1-15.1); White Blood Count 14.7 10^3/uL (4.0-10.0)
[2019-09-23 05:46] LABS: Alanine Aminotransferase < 5 U/L (0-41); Albumin Level 3.1 g/dL (3.5-5.2); Alkaline Phosphatase 68 IU/L (40-130); Anion Gap 12.7 (5-19); Aspartate Amino Transferase 11 U/L (0-40); Blood Urea Nitrogen 13 mg/dL (6-20); Calcium 8.8 mg/dL (8.5-10.5); Carbon Dioxide 25 mmol/L (22-29); Chloride 102 mmol/L (98-107); Globulin 3.4 g/dL (1.3-4.6); Glomerular Filtration Rate 116.7 mL/min (90-130); Glucose 165 mg/dL (65-115); Osmolality Calculated 282 mOsm/kg (285-295); Potassium 3.7 mmol/L (3.5-5.1); Sodium 136 mmol/L (136-145); Total Bilirubin 0.2 mg/dL (0.15-1.2); Total Protein 6.5 g/dL (6.6-8.7)
--- NOTE | 2019-09-23 06:47 | PC.NURSE ---
Pt is resting in bed, cbi intake was 1300ml sabillon output was 1800, urine clear and pale yellow with no clots noted. Pt denies any c/o of pain or discomfort at this time.
[2019-09-23 07:36] VITALS: BP 136/80; PULSE 95; RESP 16; TEMP 36.7; O2SAT 98
--- NOTE | 2019-09-23 07:48 | PM.PN ---
Subjective Subjective: Interval history: Postoperative day #1 transurethral resection/unroofing of prostatic abscess, sigmoidoscopy with polypectomy. Doing much better clinically. Markedly reduced pain. No fever or chills. Urine has remained clear White count is much improved as well. Continuing ZOSYN and FLAGYL Vitals/I&O/Wt Last Vital Signs Temp 98.1 F 09/23/19 07:36 Pulse 95 09/23/19 07:36 Resp 16 09/23/19 07:36 BP 136/80 09/23/19 07:36 Pulse Ox 98 09/23/19 07:36 09/22/19 09/23/19 09/23/19 22:59 06:59 14:59 Intake Total 1530 / 2271.25 4640 / 6911.25 Output Total 1450 / 1450 5200 / 6650 Balance 80 / 821.25 -560 / 261.25 Weight last 48 hrs Weight 119 lb 1.6 oz Physical Exam Const: COMMON NORMALS: no apparent distress, alert and well nourished GENERAL APPEARANCE: well kempt and well developed ORIENTATION/CONSCIOUSNESS: not confused HENMT: COMMON NORMALS: normocephalic and head/scalp atraumatic HEAD & SCALP: normocephalic and atraumatic Eye: COMMON NORMALS: conjunctivae normal and no scleral icterus CONJUNCTIVA: Yes conjunctivae normal Neck/C-Spine: COMMON NORMALS: full ROM GENERAL: Yes normal visual inspection Resp: COMMON NORMALS: normal respiratory effort EFFORT & INSPECTION: No labored and No actively coughing : OTHER: Bladder not distended Extremity: COMMON NORMALS: no clubbing, cyanosis or edema Neuro: COMMON NORMALS: no focal motor deficits SENSORIUM/ORIENTATION: Yes alert Psych: COMMON NORMALS: mental status grossly normal APPEARANCE: Yes grossly normal and Yes well kempt ATTITUDE: Yes calm and Yes engaged Skin: COMMON NORMALS: no rashes or lesions noted and no jaundice GENERAL SKIN EXAM: no rashes or lesions noted Urinary Catheter Management^: Pineda: Cath Placed During This Visit: yes, but has since been removed by the nurse Reason for Continuing Indwelling Catheter: Acute Urinary Retention or Obstruction Urinary Catheter Date of Insertion: 09/21/19 Urinary Catheter Time of Insertion: 20:23 Date Urinary Catheter Removed: 09/22/19 Time Urinary Catheter Discontinued: 13:59 3-way Urethral CBI Latex: Cath Placed During This Visit: yes Reason for Continuing Indwelling Catheter: Acute Urinary Retention or Obstruction Urinary Catheter Date of Insertion: 09/22/19 Urinary Catheter Time of Insertion: 15:11 Data : 09/23/19 04:59 09/23/19 04:59 A&P Assessment and plan (1) Prostatic abscess: Status post transurethral unroofing/prostatic left lateral lobe resection with clinical improvement. Status: Acute Code(s): N41.2 - Abscess of prostate (2) Heartburn: Status: Acute Code(s): R12 - Heartburn Attestations Medical Necessity Statement*: Marked clinical improvement. Still requires IV antibiotics, will taper CBI off. Coding Level of Care Code Acute Tube Bender for Mirella Pang Diagnoses Prostatic abscess N41.2 Heartburn R12
[2019-09-23] MEDS: finasteride 5 mg Tablet PO (08:50)
[2019-09-23] MEDS: dextrose 5%-sod chloride 0.9% 1,000 ML 75 ML IV ×2 (08:50→22:33)
[2019-09-23] MEDS: pantoprazole DR 40 mg Tablet PO ×2 (08:50→17:53)
[2019-09-23] MEDS: tamsulosin 0.4 mg Capsule PO (08:50)
[2019-09-23] MEDS: docusate sodium 100 mg Capsule PO ×2 (08:50→17:53)
--- NOTE | 2019-09-23 09:00 | PM.PN ---
Subjective Subjective: Interval history: Patient overall feels better No acute events overnight Complains of a blister at his right upper lip side Vitals/I&O/Wt Last Vital Signs Temp 98.1 F 09/23/19 07:36 Pulse 95 09/23/19 07:36 Resp 16 09/23/19 07:36 BP 136/80 09/23/19 07:36 Pulse Ox 98 09/23/19 07:36 09/22/19 09/23/19 09/23/19 22:59 06:59 14:59 Intake Total 1530 / 2271.25 4640 / 6911.25 0 / 0 Output Total 1450 / 1450 5200 / 6650 Balance 80 / 821.25 -560 / 261.25 0 / 0 Weight last 48 hrs Weight 119 lb 1.6 oz Physical Exam Narrative: EXAM NARRATIVE: Patient is conscious alert oriented X3 BMI 19 Abdomen nontender nondistended soft no organomegaly guarding or rigidity/no signs of peritonitis Urinary Catheter Management^: Pineda: Cath Placed During This Visit: yes, but has since been removed by the nurse Reason for Continuing Indwelling Catheter: Acute Urinary Retention or Obstruction Urinary Catheter Date of Insertion: 09/21/19 Urinary Catheter Time of Insertion: 20:23 Date Urinary Catheter Removed: 09/22/19 Time Urinary Catheter Discontinued: 13:59 3-way Urethral CBI Latex: Cath Placed During This Visit: yes Reason for Continuing Indwelling Catheter: Acute Urinary Retention or Obstruction Urinary Catheter Date of Insertion: 09/22/19 Urinary Catheter Time of Insertion: 15:11 Data : 09/23/19 04:59 09/23/19 04:59 A&P Assessment and plan (1) Prostatic abscess: Continue management per Dr. Gil's plan of care; We will plan to see the patient as an outpatient to review the pathology of the rectal polyp Assurance and education All questions have been answered and all concerns have been addressed to patient's satisfaction. Status: Acute Code(s): N41.2 - Abscess of prostate (2) Heartburn: Raise the head of the bed 4-6 inches Frequent small meals through the day Avoid smoking or Chewing Tobacco Avoid excess coffee, tea, and other caffeinated beverages Avoid garments that fit tightly through the abdomen Avoid eating before going to sleep Avoid nonsteroidal anti-inflammatory drugs (NSAIDs) when possible Anti-reflux diet Anti-reflux medications as prescribed Emphasis on weight management Oral gel on the lip blister Status: Acute Code(s): R12 - Heartburn Attestations Medical Necessity Statement*: Per urology service Time Spent in Patient Care: less than 15 minutes (>than 50% of time spent in counselling and/or direct pt care on unit). Coding Level of Care Code Acute Network Coordinator for Mirella Schofieldd Diagnoses Prostatic abscess N41.2 Heartburn R12
[2019-09-23] MEDS: HYDROcodone-acetaminophen 5-325 mg Tablet 2 TAB PO ×3 (09:02→18:46)
--- NOTE | 2019-09-23 10:11 | ANE.PACU2 ---
 Inpatient post-anesthesia follow up: Airway intact: Yes Vital signs: Temperature 98.1 F Pulse Rate 95 Respiratory Rate 16 Blood Pressure 136/80 Pulse Oximetry 98 Oxygen Delivery Me thod Room Air Oxygen Flow Rate 8 Fraction of Inspir ed Oxygen Hydration adequate: Yes Nausea and vomiting: No Mental status: Baseline Additional Comments: Patient has slight swelling on underside of R upper lip, potentially pressure-induced from ETT. No signs of infection, no erythema, not painful per patient. Informed patient it should subside with a day or so if due to ETT.
[2019-09-23 11:37] VITALS: BP 157/88; PULSE 83; RESP 16; TEMP 36.9; O2SAT 97
[2019-09-23 15:24] VITALS: BP 164/86; PULSE 91; RESP 18; TEMP 36.7; O2SAT 97
[2019-09-23 20:00] VITALS: BP 143/88; PULSE 72; RESP 16; TEMP 36.6; O2SAT 97
[2019-09-24] VITALS: BP 149/90; PULSE 81; RESP 17; TEMP 36.3; O2SAT 95
[2019-09-24] MEDS: HYDROcodone-acetaminophen 5-325 mg Tablet 2 TAB PO ×2 (01:50→09:53)
[2019-09-24] MEDS: piperacillin-tazobactam 3.375 GM in sodium chloride 0.9% (plus) 50 ML IV ×2 (01:53→09:53)
[2019-09-24 04:00] VITALS: BP 132/79; PULSE 74; RESP 17; TEMP 36.7; O2SAT 96
--- NOTE | 2019-09-24 05:48 | NUR.SHIFT ---
patient had 2,700ml CBI fluid intake total amount emptied out of cath bag up until 0530-5,750ml patient had roughly 480ml oral fluid intake around 1000ml of iv fluids up until 0530.
[2019-09-24 08:00] VITALS: BP 142/89; PULSE 82; RESP 18; TEMP 36.9; O2SAT 97
--- NOTE | 2019-09-24 08:22 | PC.NURSE ---
Dr Gil in room assessing pt.
[2019-09-24] MEDS: docusate sodium 100 mg Capsule PO (08:31)
[2019-09-24] MEDS: pantoprazole DR 40 mg Tablet PO (08:31)
[2019-09-24] MEDS: tamsulosin 0.4 mg Capsule PO (08:31)
[2019-09-24] MEDS: finasteride 5 mg Tablet PO (08:31)
--- NOTE | 2019-09-24 08:33 | PM.MISC ---
Miscellaneous Note Note: Postoperative day #2 transurethral resection/unroofing of prostatic abscess. Has been afebrile with vital signs stable. CBC is pending. Pain is better today than it was yesterday which was substantially improved than preop status. Plans for today: 1. Voiding trial 6 bottle void in and out catheterization as needed based on bladder scan PVR 2. Leaning toward keeping an extra day for IV antibiotics before discharging on oral antibiotics given his outpatient failure. 3. Reviewed with nursing staff and the patient the plans for today
[2019-09-24 10:42] LABS: Basophils # 0.1 10^3/uL (0.0-0.1); Basophils % 0.9 %; Eosinophils # 0.1 10^3/uL (0.0-0.8); Eosinophils % 0.9 %; Hematocrit 38.5 % (42.0-52.0); Hemoglobin 12.7 g/dL (11.7-16.6); Lymphocytes # 1.4 10^3/uL (0.8-4.8); Mean Platelet Volume 8.4 fL (7.4-10.4); Monocytes # 0.7 10^3/uL (0.2-0.9); Monocytes % 6.4 %; Neutrophils # 8.2 10^3/uL (1.8-7.7); Neutrophils % 78.2 %; Nucleated Red Blood Cells % 0 %; Platelet Count 557 10^3/cmm (130-400); Red Blood Count 4.23 10^6/uL (4.1-5.3); Red Cell Distribution Width 13.3 % (12.1-15.1); White Blood Count 10.5 10^3/uL (4.0-10.0)
[2019-09-24 12:00] VITALS: BP 133/83; PULSE 83; RESP 18; TEMP 36.8; O2SAT 99
[2019-09-24] MEDS: dextrose 5%-sod chloride 0.9% 1,000 ML 75 ML IV (12:37)
--- NOTE | 2019-09-24 14:23 | P.DS_ITS ---
Discharge Providers Date of Admission: 09/21/19 17:24 Date of Discharge: September 24, 2019 Attending Provider at Admission: Yasir Gil MD Attending Provider at Discharge: Yasir Gil MD Primary Care Provider: MICHAEL Amos Diagnoses at Discharge Discharge Diagnosis (1) Prostatic abscess: Status: Acute (2) Heartburn: Status: Acute Reason for Visit Reason for Visit: Reason For Visit: PROSTATE [facility] Hospital Course Discharge Summary: Admitted for worsening of clinical symptoms consistent with recurrence of prostatic abscess. CT confirmed this. WBC elevated at 23K IV antibiotics initiated: Zosyn. Some decrease in WBC to 20K but still a lot of pain the next morning so taken to OR for TUR unroofing resection of prostate involved in abscess. Dr Vides evaluated rectum and demonstrated no rectal wall involvement. POLYP snared. Path pending. Pineda out on POD #2. Voided well with clearing urine and good emptying x several per bladder scan. WBC 10.2 at discharge day. Afebrile/ no chills. D/C'd on pm of POD #2. To continue CIPRO and Flagyl at home and f/u late next week for FR/PVR and CBC. Physical Exam Const: COMMON NORMALS: no apparent distress, alert and well nourished GENERAL APPEARANCE: well kempt and well developed ORIENTATION/CONSCIOUSNESS: not confused Resp: COMMON NORMALS: normal respiratory effort EFFORT & INSPECTION: No labored and No actively coughing Neuro: COMMON NORMALS: no focal motor deficits SENSORIUM/ORIENTATION: Yes alert Psych: COMMON NORMALS: mental status grossly normal APPEARANCE: Yes grossly normal and Yes well kempt ATTITUDE: Yes calm and Yes engaged Urinary Catheter Management^: Pineda: Cath Placed During This Visit: yes, but has since been removed by the nurse Reason for Continuing Indwelling Catheter: Acute Urinary Retention or Obstruction Urinary Catheter Date of Insertion: 09/21/19 Urinary Catheter Time of Insertion: 20:23 Date Urinary Catheter Removed: 09/22/19 Time Urinary Catheter Discontinued: 13:59 3-way Urethral CBI Latex: Cath Placed During This Visit: yes Reason for Continuing Indwelling Catheter: Acute Urinary Retention or Obstruction Urinary Catheter Date of Insertion: 09/22/19 Urinary Catheter Time of Insertion: 15:11 Discharge Data Data Completed and Pending: Completed Studies During Hospitalization Category Date Time Status CT pelvis w con* [id number] Routine Cat Scan 09/22/19 07:30 Completed Pending at discharge Category Date Time Status Pathology: Surgic al [PTH] Routine Pth 09/22/19 15:33 Ordered Labs from last 24 hours 09/24/19 10:32 WBC 10.5 H RBC 4.23 Hgb 12.7 Hct 38.5 L MCV 91.0 MCH 30.0 MCHC 33.0 RDW 13.3 Plt Count 557 H MPV 8.4 Neut % (Auto) 78.2 Lymph % (Auto) 13.0 Victoria % (Auto) 6.4 Eos % (Auto) 0.9 Baso % (Auto) 0.9 Neut # (Auto) 8.2 H Lymph # (Auto) 1.4 Victoria # (Auto) 0.7 Eos # (Auto) 0.1 Baso # (Auto) 0.1 Nucleated RBC % (a uto) 0 Nucleated RBCs # 0.0 Vitals: Last Vital Signs Temp 98.2 F 09/24/19 12:00 Pulse 83 09/24/19 12:00 Resp 18 09/24/19 12:00 BP 133/83 09/24/19 12:00 Pulse Ox 99 09/24/19 12:00 Discharge Plan Discharge Patient Disposition: Home, Self-Care Condition: Stable Prescriptions: Continued lidocaine HCl 2 % jelly 1 applic INTRA-URET ONCE Qty: 1 RF: 0 finasteride 5 mg tablet 5 mg PO QDAY Qty: 90 RF: 3 Flomax 0.4 mg capsule 0.4 mg PO DAILY Qty: 90 RF: 3 metronidazole [Flagyl] 500 mg tablet 500 mg PO TID Qty: 42 RF: 1 ciprofloxacin HCl 500 mg tablet 500 mg PO BID Qty: 42 RF: 1 esomeprazole magnesium 40 mg Capsule,Delayed Release(Dr/Ec) 40 mg PO DAILY RF: 0 Discharge Orders: Discharge Order (Routine); Ordered 09/24/19 Ordered By: Yasir Gil Referrals: Yasir Gil MD [Physician] - 4-7 days (Wednesday this week for lab draw and urine check FR/PVR) Discharge Diet: Usual diet Discharge Activity: Limit activity as instructed Activity Restrictions/Additional Instructions: No lifting >10 pounds x 3 weeks In and out catheterization as needed Continue the 2 ANTIBIOTICS you have at home (Ciprofloxin and Metronidazole) You can use over the counter azo-standard to help with the burning if you desire. I would like to see you Wednesday in my clinic to draw lab and check on the infection. Please call me if you are getting worse before then. Discharge Attestations Time Spent in Discharge Care*: less than 30 min Quality Metrics Clinical Quality Measures During this hospital stay, did patient experience: None Coding Level of Care Code Acute Apparatus Operator for [place] Fwd Exam Expanded Problem Focused Diagnoses Prostatic abscess N41.2 Heartburn R12
[2019-09-24 23:25] VITALS: BP 133/83; PULSE 83; RESP 18; TEMP 36.8; O2SAT 99
== END 2019-09-24 15:00 | disposition home or self-care (01) | DRG 714 ==
PROVIDERS: Surgery; Admitting Provider Urology; PCP Nurse Practitioner; Visit Provider Urology
PROC: 0TJB8ZZ Inspection of Bladder, Via Natural or Artificial Opening Endoscopic (ICD-10-PCS; CPT 52000; principal; 2019-09-22 12:00)
PROC: 0VT08ZZ Resection of Prostate, Via Natural or Artificial Opening Endoscopic (ICD-10-PCS; CPT 52601; 2019-09-22 12:00)
PROC: 0DJD8ZZ Inspection of Lower Intestinal Tract, Via Natural or Artificial Opening Endoscopic (ICD-10-PCS; CPT 45330; 2019-09-22 12:00)
DX: N41.2 Abscess of prostate (principal); R12 Heartburn; F17.210 Nicotine dependence, cigarettes, uncomplicated; N40.0 Benign prostatic hyperplasia without lower urinary tract symptoms; R33.9 Retention of urine, unspecified; Z79.2 Long term (current) use of antibiotics
CPT/HCPCS: 12345; 36415; 51702; 72193; 80053; 85025; 88305; 96375; J0330; J1100; J2001; J2270; J2405; J2543; J2704; J2710; J3010; J3490; J7030; Q9967

== ENCOUNTER → 2019-09-28 10:51 | Outpatient (BNVA) | payer SELFPAY | PROVIDERS: PCP Nurse Practitioner; Visit Provider Urology | DX: N41.2 Abscess of prostate (principal) | CPT/HCPCS: 80053; 85025 ==

== ENCOUNTER → 2019-10-09 10:18 | Outpatient (BNVA) | payer SELFPAY | PROVIDERS: PCP Nurse Practitioner; Visit Provider Urology | DX: N41.2 Abscess of prostate (principal) | CPT/HCPCS: 80053; 85025 ==

== ENCOUNTER 2019-11-09 12:37 | Inpatient (IN) | payer OTHER, SELFPAY ==
[2019-11-09] VITALS (9 sets, daily range): BP systolic 116–147; BP diastolic 70–90; PULSE 105–113; RESP 12–18; TEMP 36.4–37.2; O2SAT 94–100; BMI 19.3
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
--- NOTE | 2019-11-09 14:56 | USCV_ITS ---
Volodymyr Stratton Age: 54 Gender: M : 1965 Exam Date: 11/09/2019 15:22 Ordering Phys: Bryan Vega Technologist: Lizzette Medina [place] [facility] [place]: PAIN AND SWELLING HISTORY: Pain in lt leg PROCEDURES: Venous duplex imaging was performed in only the left lower extremity. The following venous structures were evaluated: common femoral vein, profunda vein, proximal portion of the greater saphenous vein, superficial femoral vein, and the popliteal vein. In addition, the posterior tibial and peroneal trunk were evaluated. Serial compression, augmentation maneuvers, and spectral Doppler flow evaluation were performed. FINDINGS: Acute mobile DVT from the CFV throught the popliteal vein. CONCLUSIONS Acute DVT CFV to popliteal vein Dr. Rianna Polk DO (Electronically Signed) Final Date: 09 Nov 2019 16:15 S
--- NOTE | 2019-11-09 14:56 | XR_ITS ---
WS: [id number] LEFT FEMUR: 2 VIEW(S) TECHNIQUE: AP and lateral. HISTORY: fall, swelling and pain COMPARISON: None available. On the lateral projection is a small fragment of bone along the posterior mid femur. Suspect there ma y be an avulsion fracture from the posterior cortex. Soft tissues are unremarkable. No foreign body or calcification. XR/XR femur LT min 2V* [id number] Impression: Possible avulsion fracture from the posterior cortex of the mid femur. For conf irmation consider follow-up CT evaluation.
--- NOTE | 2019-11-09 14:56 | XR_ITS ---
WS: [id number] LEFT KNEE: 3 VIEW(S) TECHNIQUE: AP, oblique(s) and lateral. HISTORY: injury (fall) knee pain and swelling COMPARISON: None available. No definite fracture is identified. Lucency in the intertrochanteric notch. There is a large suprapatellar joint effusion. Soft tissue edema surrounding the knee. XR/XR knee LT 3V* [id number] IMPRESSION: 1. Large suprapatellar joint effusion. No definite fracture identified. Due to the size of the effusion consider follow-up evaluation by CT LEFT knee to eval uate for occult fracture. 2. Indeterminate for fracture along the intertrochanteric notch.
[2019-11-09] MEDS: HYDROcodone-acetaminophen 7.5-325 mg Tablet 1 TAB PO ×2 (15:11→18:10)
--- NOTE | 2019-11-09 16:22 | CTR_ITS ---
PROCEDURE INFORMATION: Exam: CT Left Lower Extremity Without Contrast, Knee Exam date and time: 11/09/2019 5:25 PM Age: 54 years old Clinical indication: Injury or trauma; Initial encounter; Blunt trauma; Knee; Left; Injury details: Fall from ladder October 26; Additional info: Xray possible occult fracture with join effusion TECHNIQUE: Imaging protocol: CT of the Left lower extremity without contrast was performed. Exam focused on the knee. Radiation optimization: All CT scans at this facility use at least one of these dose optimization techniques: automated exposure control; mA and/or kV adjustment per patient size (includes targeted exams where dose is matched to clinical indication); or iterative reconstruction. COMPARISON: CR XR knee LT 3V* [id number] 11/09/2019 3:02 PM RADIATION DOSE METRICS: Total DLP: 115.03 mGy-cm FINDINGS: Bones/joints: There is permeative change in the distal left femur with a large effusion in the suprapatellar bursa. No definite fracture is identified. Findings raise concern for possible malignancy. Further evaluation with MRI is suggested. Soft tissues: Please also see the report of CT scan of the left thigh. CT/CT knee LT wo con* [id number] IMPRESSION: Abnormal findings in the distal femur as described. Further evaluation with MRI is recommended. Radiation Dose CTDIVOL = (mGy): DLP = 115.03 (mGy-cm)
--- NOTE | 2019-11-09 16:22 | CTR_ITS ---
PROCEDURE INFORMATION: Exam: CT Left Lower Extremity Without Contrast; Thigh Exam date and time: 11/09/2019 5:25 PM Age: 54 years old Clinical indication: Injury or trauma; Injury history: Fall from ladder October 26; Initial encounter; Blunt trauma; Thigh or upper leg; Left; Additional info: Xray reccomended due to possible occult fracture TECHNIQUE: Imaging protocol: CT of the Left lower extremity without contrast was performed. Exam focused on the thigh. Radiation optimization: All CT scans at this facility use at least one of these dose optimization techniques: automated exposure control; mA and/or kV adjustment per patient size (includes targeted exams where dose is matched to clinical indication); or iterative reconstruction. COMPARISON: CR XR femur LT min 2V* [id number] 11/09/2019 3:02 PM RADIATION DOSE METRICS: Total DLP: 709.21 mGy-cm FINDINGS: Bones/joints: There is focal periosteal reaction along the medial aspect of the left femoral shaft near the junction of the middle and distal thirds, corresponding with findings on the plain radiographs. There is a permeative appearance of the distal half of the left femur including the shaft and metaphysis. No fracture is identified. Soft tissues: There is large surrounding soft tissue mass and large effusion in the suprapatellar bursa. CT/CT femur LT wo con* [id number] IMPRESSION: 1. Abnormal findings involving the distal femur and thigh as described. Malignancy is not excluded. Further evaluation with MRI is recommended. 2. No fracture is identified. COMMENTS: THIS REPORT CONTAINS FINDINGS THAT MAY BE CRITICAL TO PATIENT CARE. The findings were verbally communicated via telephone conference with Dr. Guardado at 6:36 PM CDT on 11/09/2019. The findings were acknowledged and understood. Radiation Dose CTDIVOL = (mGy): DLP = 709.21 (mGy-cm)
[2019-11-09] MEDS: enoxaparin 80 mg/0.8 mL Syringe 60 MG SUBCUT (17:29)
[2019-11-09 17:53] LABS: Basophils # 0.1 10^3/uL (0.0-0.1); Basophils % 0.3 %; Hematocrit 35.6 % (42.0-52.0); Hemoglobin 12.2 g/dL (11.7-16.6); Lymphocytes % 2.5 %; Mean Corpuscular HGB Conc 34.3 g/dL (30.0-36.0); Mean Corpuscular Hemoglobin 29.7 pg (28.0-34.0); Mean Corpuscular Volume 86.6 fL (80-94); Mean Platelet Volume 8.6 fL (7.4-10.4); Monocytes # 0.9 10^3/uL (0.2-0.9); Monocytes % 2.3 %; Neutrophils # 35.6 10^3/uL (1.8-7.7); Neutrophils % 91.9 %; Nucleated Red Blood Cells % 0 %; Platelet Count 652 10^3/cmm (130-400); Red Blood Count 4.11 10^6/uL (4.1-5.3); Red Cell Distribution Width 14.7 % (12.1-15.1)
[2019-11-09 18:10] LABS: Alanine Aminotransferase 18 U/L (0-41); Albumin Level 2.8 g/dL (3.5-5.2); Alkaline Phosphatase 169 IU/L (40-130); Anion Gap 18.3 (5-19); Aspartate Amino Transferase 16 U/L (0-40); Blood Urea Nitrogen 26 mg/dL (6-20); Carbon Dioxide 27 mmol/L (22-29); Chloride 90 mmol/L (98-107); Globulin 3.9 g/dL (1.3-4.6); Glomerular Filtration Rate 87.3 mL/min (90-130); Glucose 129 mg/dL (65-115); Osmolality Calculated 273 mOsm/kg (285-295); Potassium 3.3 mmol/L (3.5-5.1); Sodium 132 mmol/L (136-145); Total Bilirubin 0.6 mg/dL (0.15-1.2); Total Protein 6.7 g/dL (6.6-8.7)
[2019-11-09 18:21] LABS: Partial Thromboplastin Time 34.7 SECONDS (23.9-36.7)
[2019-11-09 18:26] LABS: White Blood Count 38.7 10^3/uL (4.0-10.0)
[2019-11-09] MEDS: lidocaine 1% INJ 20 mL INJECTION (20:57)
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
[2019-11-09] MEDS: piperacillin-tazobactam 3.375 GM in sodium chloride 0.9% (plus) 50 ML IV (21:50)
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
[2019-11-09 22:18] LABS: Procalcitonin 0.89 ng/mL (0-0.5)
[2019-11-09] MEDS: morphine 4 mg/mL SDV 1 mL IVP (23:05)
[2019-11-09] MEDS: vancomycin 1,000 MG in sodium chloride 0.9% 250 ML 250 MG IV (23:07)
[2019-11-10] VITALS (22 sets, daily range): BP systolic 116–151; BP diastolic 69–85; PULSE 110–134; RESP 12–20; TEMP 36.9–38.6; O2SAT 92–97
--- NOTE | 2019-11-10 00:04 | PC.NURSE ---
ruiz dumont then made npo at mt
[2019-11-10] MEDS: lactated ringers 1,000 ML 100 ML IV ×3 (00:23→06:33)
[2019-11-10] MEDS: HYDROcodone-acetaminophen 5-325 mg Tablet 1 TAB PO ×2 (00:25→06:15)
[2019-11-10] MEDS: morphine 4 mg/mL SDV 1 mL IVP ×3 (02:45→11:48)
[2019-11-10 06:17] LABS: Basophils # 0.1 10^3/uL (0.0-0.1); Basophils % 0.2 %; Hematocrit 31.6 % (42.0-52.0); Hemoglobin 11.1 g/dL (11.7-16.6); Lymphocytes % 2.9 %; Mean Corpuscular HGB Conc 35.1 g/dL (30.0-36.0); Mean Corpuscular Hemoglobin 30.3 pg (28.0-34.0); Mean Corpuscular Volume 86.3 fL (80-94); Mean Platelet Volume 8.3 fL (7.4-10.4); Monocytes # 1.2 10^3/uL (0.2-0.9); Monocytes % 3.4 %; Neutrophils # 31.1 10^3/uL (1.8-7.7); Neutrophils % 90.6 %; Nucleated Red Blood Cells % 0 %; Platelet Count 572 10^3/cmm (130-400); Red Blood Count 3.66 10^6/uL (4.1-5.3); Red Cell Distribution Width 14.7 % (12.1-15.1)
[2019-11-10] MEDS: piperacillin-tazobactam 3.375 GM in sodium chloride 0.9% (plus) 50 ML IV ×3 (06:19→16:20)
[2019-11-10 06:20] LABS: White Blood Count 34.3 10^3/uL (4.0-10.0)
[2019-11-10] MEDS: enoxaparin 100 mg/mL Syringe 60 MG SUBCUT (06:22)
[2019-11-10] MEDS: enoxaparin 60 mg/0.6 mL Syringe SUBCUT (06:33)
[2019-11-10 06:34] LABS: Anion Gap 16.2 (5-19); Blood Urea Nitrogen 19 mg/dL (6-20); Calcium 8.9 mg/dL (8.5-10.5); Carbon Dioxide 25 mmol/L (22-29); Chloride 95 mmol/L (98-107); Glomerular Filtration Rate 116.7 mL/min (90-130); Glucose 144 mg/dL (65-115); Magnesium 2.2 mg/dL (1.7-2.3); Osmolality Calculated 275 mOsm/kg (285-295); Phosphorus 2.7 mg/dL (2.5-4.5); Potassium 3.2 mmol/L (3.5-5.1); Sodium 133 mmol/L (136-145)
[2019-11-10 07:48] LABS: Appearance Synovial Fluid CLOUDY (CLEAR); Color Synovial Fluid YELLOW (PALE YELLOW); PATH Referal YES
--- NOTE | 2019-11-10 09:00 | XR_ITS ---
WS: [id number] PORTABLE CHEST HISTORY: fever COMPARISON: None available. Multiple pulmonary hyperinflation. No mass or nodule. Mild radiopaque foreign bodies scattered over t he RIGHT thorax may be external to the patient. These could be skin calcifications. No pleural effusi on or pneumothorax. Cardiac size: Normal. Mediastinum/Aorta: Normal mediastinum. No osseous abnormality seen. XR/XR chest 1V portable [id number] IMPRESSION: Chronic emphysema with no pneumonia.
--- NOTE | 2019-11-10 09:05 | P.PN_ITS ---
Subjective Subjective: Interval history: History and physical reviewed in detail. Patient reports symptoms going on for many weeks, progressively worse, and now swelling. He reports he has been able to bear weight on the leg for several weeks. He reports no fevers or chills at home. Recently underwent surgery for prostate abscess September 21. No history of blood in stool black or tarry stools, hematemesis. No cough. No burning with urination. Reports he is urinating normally. No diarrhea. Medications: Reviewed: Yes Vitals/I&O/Wt Last Vital Signs Temp 98.8 F 11/10/19 07:17 Pulse 110 H 11/10/19 07:17 Resp 18 11/10/19 08:32 BP 138/71 11/10/19 07:17 Pulse Ox 95 11/10/19 08:32 11/09/19 11/10/19 11/10/19 22:59 06:59 14:59 Intake Total 50 / 50 1046.666 / 1096.666 Output Total 450 / 450 Balance 50 / 50 596.666 / 646.666 Weight last 48 hrs Weight 55.792 kg Physical Exam Narrative: EXAM NARRATIVE: General exam no apparent distress Cardiovascular regular rate and rhythm without murmur Lungs clear Abdomen is soft positive bowel sounds Extremities left with edema, increased warmth, slight erythema, and normal capillary refill. Right normal Data : 11/10/19 06:09 11/10/19 06:09 Micro: Microbiology 11/09/19 20:05 Blood Culture - Preliminary Blood SPECIMEN COLLECTED 11/09/19 20:08 Blood Culture - Preliminary Blood SPECIMEN COLLECTED A&P Assessment and plan (1) DVT (deep venous thrombosis): Discontinue Lovenox at this time. As surgical procedures may be required transition to heparin drip tonight. Status: Acute Qualifiers: Affected thrombotic vein of extremity: popliteal Chronicity: acute DVT location: lower extremity Laterality: left Qualified Code(s): I82.432 - Acute embolism and thrombosis of left popliteal vein (2) Abnormal finding on imaging: Clarified by MRI. I suspect this is a locus of osteomyelitis or abscess. Continue vancomycin, Zosyn. Await culture drawn from knee Appreciate orthopedic consultation Status: Acute (3) Leukocytosis: To complete work-up, check urinalysis and chest x-ray Sedimentation rate, CRP tomorrow Status: Acute Qualifiers: Leukocytosis type: unspecified Qualified Code(s): D72.829 - Elevated white blood cell count, unspecified Additional A&P Information Prostate abscess late August requiring surgery and prolonged antibiotics, given o rally as an outpatient Hypokalemia, supplement History of GERD, proton pump inhibitor Full code Heparin for DVT prophylaxis Attestations Medical Necessity Statement*: Needs continued hospitalization for IV antibiotics secondary to suspected osteomyelitis, abscess Coding Level of Care Code 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
--- NOTE | 2019-11-10 10:12 | XR_ITS ---
WS: [id number] Orbits, 3 views. HISTORY: Evaluate for possible metal within the orbits. There are no metallic foreign bodies projecting over the orbits or globes. No bone destruction. No si gnificant sinus disease. XR/[place] [id number] IMPRESSION: No metallic foreign body over the orbits.
[2019-11-10] MEDS: potassium chloride premix 40 MEQ/100 ML PREMIX 25 MEQ IV (10:51)
[2019-11-10 11:30] LABS: Bilirubin Urine Neg (NEGATIVE); Blood Urine 2+ (Negative); Glucose Urine UA Norm (Normal); Ketones Urine Negative (Negative); Nitrate Urine Negative (Negative); Protein Urine Trace (Negative); Urine Appearance Clear (CLEAR); Urine Color Yellow (Yellow)
[2019-11-10 11:31] LABS: Leukocyte Esterase Urine Negative (Negative); Urobilinogen Urine 4+ mg/dL (Negative)
[2019-11-10 11:59] LABS: Add Urine Culture? No; Bacteria Urine TRACE; Mucus Urine TRACE; RBC Urine 0-4 /hpf (0-2); Squamous Epithelial Cell Urine 0-4 (0-5)
--- NOTE | 2019-11-10 13:49 | PC.NURSE ---
Patient out of room for MRI between 11-1330. To [facility] per ambulance. Patient to OR for Surgery per Dr. Ford at 1350. Patient's family (son) notified per patient.
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
--- NOTE | 2019-11-10 15:15 | PM.PN ---
Subjective Subjective: Interval history: 54-year-old white male with left thigh and knee pain. Infection is favored. White count increases to 34.3. Temperature up to 101.5 degrees. Patient underwent MRI which may be consistent with osteomyelitis certainly septic arthritis is favored. He has some edema about the knee and soft tissues. Vitals/I&O/Wt Last Vital Signs Temp 101.5 F H 11/10/19 14:01 Pulse 116 H 11/10/19 14:01 Resp 18 11/10/19 14:01 BP 146/84 11/10/19 14:01 Pulse Ox 94 11/10/19 14:01 11/10/19 11/10/19 11/10/19 06:59 14:59 22:59 Intake Total 1046.666 / 1096.666 Output Total 450 / 450 Balance 596.666 / 646.666 Weight last 48 hrs Weight 123 lb Physical Exam Const: GENERAL APPEARANCE: in distress (Mild distress) NUTRITIONAL APPEARANCE: thin Extremity: RIGHT LOWER EXTREMITY: Yes upper leg (Tender and warm right thigh) and Yes knee joint Right knee: Yes inspection (large effusion) and Yes ROM (decreased) Data : 11/10/19 06:09 11/10/19 06:09 Micro: Microbiology 11/09/19 20:05 Blood Culture - Preliminary Blood SPECIMEN COLLECTED 11/09/19 20:08 Blood Culture - Preliminary Blood SPECIMEN COLLECTED A&P Assessment and plan (1) DVT (deep venous thrombosis): Status: Acute Qualifiers: Affected thrombotic vein of extremity: popliteal Chronicity: acute DVT location: lower extremity Laterality: left Qualified Code(s): I82.432 - Acute embolism and thrombosis of left popliteal vein (2) Leukocytosis: Status: Acute Qualifiers: Leukocytosis type: unspecified Qualified Code(s): D72.829 - Elevated white blood cell count, unspecified (3) Septic arthritis of knee, left: Status: Acute Attestations Medical Necessity Statement*: Patient will require continued inpatient level care for treatment of serious infection to the left lower extremity. Patient also requires treatment for deep venous thrombosis left lower extremity Patient will require return to the operating room in 40 hours for washout of wound possible closure versus further debridement. Time Spent in Patient Care: 16 - 35 minutes (>than 50% of time spent in counselling and/or direct pt care on unit). 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
[2019-11-10] MEDS: neomycin-poly-bacitracin oint 28 gm 1 APPLIC TOPICAL (16:30)
--- NOTE | 2019-11-10 16:44 | SUR.PHASEI ---
2124 PATIENT TO PACU AT THIS TIME FROM OR. RR EVEN AND UNLABORED. PLACED ON SIMPLE MASK AT 8L, SPO2 99%. DRESSING TO LEFT KNEE, WITH DONALDO BANDAGE, KNEE BRACE, HEMOVAC DRAIN. PATIENT RESPONDS TO VERBAL STIMULI.
--- NOTE | 2019-11-10 16:46 | P.OP_ITS ---
Operative Report Date of procedure: November 10, 2019 Pre-op Diagnosis: Septic arthritis left knee with soft tissue abscess left thigh Post-op Diagnosis: Septic arthritis left knee Soft tissue abscess left thigh Osteomyelitis left distal femur Post-op Findings: The patient was found to have a large abscess pocket within the left knee. The purulent material was under pressure. Approximate 300 400 mL of purulent material is able to be expressed with gentle pressure beginning at the upper aspect of the thigh and milking the purulent material down to the level of our arthrotomy of the knee joint. His abscess cavity extended to the posterior aspect of the distal femur in the supracondylar region. His MRI showed Abebe's cyst is that was distended. I was able to perform pressure in the leg area of the popliteal fossa and milk more purulent material into the wound from the site. As the patient had a permeative pattern of the bone on imaging studies I performed a drill hole in the anterior femoral cortex and gastelum pracondylar region. The drill was removed material issued forth under pressure. Made a series of drill holes and then connected them with a small half-inch osteotome making any elliptical corticotomy. More purulent material issued forth. Portion of bone was cemented for bone biopsy. At the conclusion of the procedure the wound was not grossly purulent. Procedure Done: Arthrotomy left knee with synovial biopsy Open bone biopsy left distal femur Implants: None Specimens removed/disposition: Aerobic anaerobic cultures from left knee Synovial biopsy left knee Bone biopsy distal femur Surgeon: Logan Ford Anesthesia: General Estimated blood loss (mL): 200 Tourniquet time (min): 0 (tourniquet not used) Complications: None Findings: see above postoperative findings Condition: stable Disposition: PACU Brief History: 54-year-old white male treated in August for pelvic abscess was placed on Levaquin was evaluated by urology and Gen. surgery. He was discharged and was doing well with no constitutional symptoms. He had a fall from a ladder on about October 26. No additional trauma the 24th hours prior to presenting to the emergency room patient is having complaints of discomfort in his left lower extremity. He presented to the emergency room series of imaging studies were performed. No obvious fracture dislocation was noted. The patient was noted to have a markedly elevated white blood cell count. His found have a large effusion. This was aspirated. The fluid showed is not grossly bloody with fat droplets that might be suggestive of a fracture but rather had a white blood cells and gram-positive organisms. The patient was seen in orthopedic consultation. I recommended based on the results of his aspirate that he undergo arthrotomy of the left knee with drainage of his soft tissue abscess about the left thigh. We discussed potential corticotomy of the distal femur with evacuation of purulent material with should be encountered during the surgical procedure. Risks of surgery include aren't limited to failure to eradicate infection, possibly for further surgery. In fact I mentioned to the patient that if he has a severely infected knee that we would bring him back in 48 hours time for a washout of his knee. Other complications can include blood clots of which year he has 1 left lower extremity heart attack stroke risk up to including . All questions were answered patient agreeable to proceed with surgery. Procedure: The patient was identified. The surgical site was signed. The patient was taken back to the operating room. He was placed supine on the operating room table. His placed under general anesthesia without difficulty. A bump was placed on the ipsilateral buttock. The patient's left lower extremity was then sterilely prepped and draped usual fashion. No tourniquet was applied as the patient has a blood clot in the left lower extremity as well as has an infection I did not plan to use a tourniquet. A timeout was performed. Made a longitudinal incision superior to the superior pole of the patella in line with the long axis of the thigh. Full-thickness skin flaps were made. Skin edge bleeders requiring later. Self-retaining retractors placed in the wound. We identified the underlying quadriceps tendon and incised in line for approximately 4 cm. Gross purulent material was evacuated from the wound proximally 30 to 400 mL. Aerobic and anaerobic cultures were taken of the purulent material. We used manual pressure starting proximal on the thigh and pressing down to the arthrotomy site and this caused more purulent material to be evacuated from the knee. Also put pressure on the patient's popliteal fossa particular medially where he had a a Abebe's cyst that was distended noted on MRI. We now irrigated the knee with pulsatile lavage containing antibiotic solution. We now dried the wound. I performed partial synovectomy particularly containing purulent material this is cemented for biopsy. Then took a 2.5 mm drill and then the anterior cortical surface made a drill hole. Purulent material from the drill hole indicating that the intramedullary canal of the femur in this area had purulent material under pressure. Made a series of drill holes and then used an osteotome to make a corticotomy as well as to decompress the intramedullary canal of the distal femur. We irrigated and suctioned this area. I will use a pituitary to take portions of the medullary contents as well as the parietal bone from the corticotomy for bone biopsy. Enalapril placed dilute Betadine solution in the wound and let it settle approximate 3 minutes. At which time we evacuated the Betadine and then once again used pulsatile lavage in place liters of fluid into the wound and suctioned this from the wound. With a large Hemovac drain placed from inside out and a portion of the drain tubing in the intramedullary canal of the distal femur as well as in the suprapatellar pouch. We closed the quadriceps tendon of the sutures of #1 PDS. Subcutaneous closure with interrupted sutures of 2-0 Monocryl and skin was closed with #2 Prolene loosely interrupted sutures. Antibiotic was applied the incision was dry injected with 20 mL of a one-to-one mixture 1% lidocaine with epinephrine half percent Marcaine. Sterile dressings were applied with an Anthony overwrap. The drain was compressed. The patient was aroused from general anesthesia. He was taken to recovery in. Tolerated surgery well. All counts are correct. As the patient had a gross infection did not give prophylactic antibiotics. He did receive regular scheduled antibiotics as recommended by the hospitalist team prior to during and after surgery.
[2019-11-10] MEDS: morphine 4 mg/mL SDV 1 mL 2 MG IVP (16:53)
[2019-11-10] MEDS: HYDROmorphone 1 mg/mL INJ 1 mL 0.5 MG IVP ×2 (17:00→23:46)
--- NOTE | 2019-11-10 17:39 | SUR.PHASEI ---
1732 PATIENT TO MED SURG AT THIS TIME. RESTING COMFORTABLE IN BED. RR EVEN AND UNLABORED. DRESSING TO LEFT KNEE INTACT WITH HEMOVAC IN PLACE. PATIENT TOLERATING ICE CHIPS.
--- NOTE | 2019-11-10 19:46 | PC.NURSE ---
Called to verify with Dr. Ford that heparin gtt to be started. Doctors stated to start as Dr. Balderas ordered.
[2019-11-10] MEDS: heparin drip 25,000 UNIT/500 ML PREMIX 16 UNIT IV (20:14)
[2019-11-10] MEDS: sennosides-docusate Tablet 2 TAB PO (20:15)
[2019-11-10] MEDS: heparin 5,000 unit/mL INJ 1 mL IV (20:16)
--- NOTE | 2019-11-10 20:25 | PC.NURSE ---
patient's drain to left knee emptied at 1900, had 30mls of bloody drainage.
[2019-11-10] MEDS: oxyCODONE 5 mg IR Tab/Cap PO (20:50)
[2019-11-10] MEDS: chlorhexidine gluconate 0.12% Btl 473 mL 30 ML MUCOUS MEM (20:51)
--- NOTE | 2019-11-10 21:43 | MR_ITS ---
WS: [id number] MRI LEFT KNEE with and without contrast HISTORY: evaluate for possible tumor or infection COMPARISON: 11/09/2019 Markedly abnormal signal involving the marrow of the distal femur, patella and knee. Permeative patte rn of marrow replacement in the distal femur. On the recent CT of the femur there is interruption of the cortex near the permeative pattern. Suspect is probably combination of fracture and osteomyelitis . Reactive marrow edema as a response to the hyperemia of the septic joint is also present. There is enhancement and coarsened pattern interspersed with areas of edema. There is a very large joint effusion. The entire extent of the joint effusion and soft tissue/muscula r extension of the acute process has not been imaged as it extends into the mid femur. Enhancement of the synovium with enhancement the suprapatellar effusion. There is also abnormal signal within the m uscles surrounding the knee and multiple fluid collections with enhancing wall in the vastus medialis , semimembranosus muscle and the gastrocnemius muscle. Largest component of the suprapatellar collect ion measures 6.0 x 6.4 cm. There is fluid in Abebe's cyst with enhancement. There is soft tissue enha ncement surrounding the ligaments and tendons of the knee. There is a small amount of enhancement in the tibial plateau. MR/MR knee LT wo/w con [id number] IMPRESSION: 1. Severe acute septic arthritis with synovial enhancement and abscess pockets extending into the muscles around the knee. Most significant muscle involvemen t is in the adjacent vastus medialis, semimembranosus and gastrocnemius muscle. 2. Diffuse abnormal signal involving the distal femur, patella and to a lesser extent the tibial plateau. Findings consistent with osteomyelitis and reactive marrow edema from the hyperemia of the septic joint.
[2019-11-10] MEDS: sodium chloride 0.9% 1,000 ML 100 ML IV (22:45)
[2019-11-10] MEDS: vancomycin 1,000 MG in sodium chloride 0.9% 250 ML 250 MG IV (22:46)
[2019-11-10] MEDS: ketorolac 30 mg/mL INJ IVP (23:53)
[2019-11-11] VITALS (10 sets, daily range): BP systolic 124–155; BP diastolic 72–84; PULSE 101–116; RESP 14–22; TEMP 36.7–37.4; O2SAT 87–97
[2019-11-11] MEDS: piperacillin-tazobactam 3.375 GM in sodium chloride 0.9% (plus) 50 ML IV ×3 (00:47→11:11)
[2019-11-11 00:58] LABS: Glucose Point of Care 143 mg/dL (70-110)
[2019-11-11] MEDS: vancomycin 1,000 MG in sodium chloride 0.9% 250 ML 250 MG IV ×2 (01:01→23:58)
--- NOTE | 2019-11-11 01:33 | PC.NURSE ---
day shift nurse reported 30ml drainage on her shuft but was not reported - i just drained 70mls, for a total now of 100mls.
[2019-11-11 02:09] LABS: Basophils # 0.1 10^3/uL (0.0-0.1); Basophils % 0.2 %; Hematocrit 27.4 % (42.0-52.0); Hemoglobin 9.1 g/dL (11.7-16.6); Lymphocytes # 1.5 10^3/uL (0.8-4.8); Lymphocytes % 4.8 %; Mean Corpuscular HGB Conc 33.2 g/dL (30.0-36.0); Mean Corpuscular Hemoglobin 29.5 pg (28.0-34.0); Mean Platelet Volume 8.6 fL (7.4-10.4); Monocytes # 1.3 10^3/uL (0.2-0.9); Monocytes % 4.3 %; Neutrophils # 27.7 10^3/uL (1.8-7.7); Neutrophils % 87.8 %; Nucleated Red Blood Cells % 0 %; Platelet Count 479 10^3/cmm (130-400); Red Blood Count 3.08 10^6/uL (4.1-5.3); Red Cell Distribution Width 15.1 % (12.1-15.1)
[2019-11-11 02:11] LABS: White Blood Count 31.5 10^3/uL (4.0-10.0)
[2019-11-11 02:19] LABS: Partial Thromboplastin Time 39.6 SECONDS (23.9-36.7)
[2019-11-11 02:23] LABS: Anion Gap 14.4 (5-19); Blood Urea Nitrogen 20 mg/dL (6-20); Calcium 7.5 mg/dL (8.5-10.5); Carbon Dioxide 24 mmol/L (22-29); Chloride 96 mmol/L (98-107); Glomerular Filtration Rate 116.7 mL/min (90-130); Glucose 146 mg/dL (65-115); Magnesium 2.1 mg/dL (1.7-2.3); Osmolality Calculated 271 mOsm/kg (285-295); Phosphorus 2.6 mg/dL (2.5-4.5); Potassium 3.4 mmol/L (3.5-5.1); Sodium 131 mmol/L (136-145)
[2019-11-11 02:48] LABS: Erythrocyte Sedimentation Rate 66 mm/hr (0-10)
[2019-11-11] MEDS: heparin 5,000 unit/mL INJ 1 mL IV ×3 (02:54→22:03)
[2019-11-11 03:59] LABS: C Reactive Protein 212.4 mg/L (0.0-4.9)
--- NOTE | 2019-11-11 04:19 | PC.NURSE ---
Critical WBC 31.5, down from 34.3 was reported to [facility] 11/11/2019 at 0232am, provider responded but with no new orders.
[2019-11-11] MEDS: ketorolac 30 mg/mL INJ IVP ×3 (05:06→16:11)
[2019-11-11] MEDS: sodium chloride 0.9% 1,000 ML 100 ML IV ×2 (06:02→16:08)
[2019-11-11] MEDS: oxyCODONE 5 mg IR Tab/Cap PO ×2 (08:30→21:15)
[2019-11-11] MEDS: sennosides-docusate Tablet 2 TAB PO (08:32)
[2019-11-11] MEDS: pantoprazole DR 40 mg Tablet PO (08:32)
[2019-11-11 10:28] LABS: Partial Thromboplastin Time 227.3 SECONDS (23.9-36.7)
[2019-11-11] MEDS: chlorhexidine gluconate 0.12% Btl 473 mL 30 ML MUCOUS MEM ×4 (10:58→21:14)
--- NOTE | 2019-11-11 14:14 | PC.RESP ---
Smoking Cessation information given to patient with a schedule of classes.
--- NOTE | 2019-11-11 15:06 | P.PN_ITS ---
Subjective Subjective: Interval history: Volodymyr reports he is hurting quite a bit. He has postoperative day #1 following left knee arthrotomy, bone biopsy Medications: Reviewed: Yes Vitals/I&O/Wt Last Vital Signs Temp 98.1 F 11/11/19 11:24 Pulse 109 H 11/11/19 11:24 Resp 22 H 11/11/19 11:24 BP 148/72 11/11/19 11:24 Pulse Ox 97 11/11/19 11:24 11/11/19 11/11/19 11/11/19 06:59 14:59 22:59 Intake Total 778.333 / 828.333 120 / 120 Output Total 45 / 445 200 / 200 Balance 733.333 / 383.333 -80 / -80 Physical Exam Narrative: EXAM NARRATIVE: General exam is no apparent distress Cardiovascular mild tachycardia Lungs a few faint expiratory wheezes Abdomen is soft positive bowel sounds Extremities no cyanosis clubbing or edema Data : 11/11/19 02:04 11/11/19 02:05 Micro: Microbiology 11/09/19 20:18 Gram Stain - Final Knee - #2 Tissue Culture - Preliminary Staphylococcus species 11/11/19 11:31 Blood Culture - Preliminary Blood SPECIMEN COLLECTED 11/11/19 11:30 Blood Culture - Preliminary Blood SPECIMEN COLLECTED 11/09/19 20:08 Blood Culture - Preliminary Blood Streptococcus species 11/09/19 20:05 Blood Culture - Preliminary Blood Staphylococcus species 11/10/19 15:46 Gram Stain - Final Knee - Left A&P Assessment and plan (1) DVT (deep venous thrombosis): Currently on a heparin drip. Will discontinue this at 4 AM, for his surgery tomorrow morning around 8-10. Will resume following and if no further surgical procedures anticipated eventually transition to Eliquis Status: Acute Qualifiers: Affected thrombotic vein of extremity: popliteal Chronicity: acute DVT location: lower extremity Laterality: left Qualified Code(s): I82.432 - Acute embolism and thrombosis of left popliteal vein (2) Abnormal finding on imaging: Clarified by MRI. Consistent with osteomyelitis and abscess. Continue vancomycin, Zosyn. Await cultures Appreciate orthopedic consultation and intervention Will need a PICC line Blood cultures has now come back positive for staph aureus. Will check a transthoracic echo. Repeat blood culture ordered. Will repeat again tomorrow. Status: Acute (3) Leukocytosis: Secondary to abscess, osteomyelitis Sedimentation rate, CRP tomorrow Status: Acute Qualifiers: Leukocytosis type: unspecified Qualified Code(s): D72.829 - Elevated white blood cell count, unspecified Additional A&P Information Prostate abscess late August requiring surgery and prolonged antibiotics, given o rally as an outpatient Hypokalemia, supplement History of GERD, proton pump inhibitor Full code Heparin for DVT prophylaxis Attestations Medical Necessity Statement*: Needs continued hospitalization for further IV antibiotics and surgery secondary to left lower extremity abscess, osteomyelitis. 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
[2019-11-11 16:13] LABS: Partial Thromboplastin Time 34.2 SECONDS (23.9-36.7)
--- NOTE | 2019-11-11 17:33 | PC.NURSE ---
Patient's drain compressed q2hrs, only 8mls of serious-sang drainage throughout this shift in total. Patient's heart rate >100 per minute. Echo not performed, Maureen in imaging stated she would attempt to do Echo in morning.
[2019-11-11] MEDS: mupirocin oint 22 gm 1 APPLIC NASAL (18:26)
--- NOTE | 2019-11-11 19:56 | P.PN_ITS ---
Subjective Subjective: Interval history: 54-year-old white male taken to surgery yesterday for suspected septic arthritis of his left knee. We encountered leg significant amount of purulent material within the left knee. He also had purulent material issuing forth from his femur which corticotomy was performed bone biopsy synovial biopsies were performed as well as regular cultures. The patient's temperature profile has defervesced. He has complaints of postoperative pain about his left lower extremity. Due to the significant infection noted in his knee yesterday with recommended that he go back to surgery tomorrow morning for a repeat washout and closure over drain for the last surgical procedure during this hospitalization. I discussed the medical team and the patient require at least 6 weeks of intravenous antibiotics followed by. Of the oral antibiotics based on sensitivities organisms that we can obtain from his cultures. Patient is agreeable to this course of action. Vitals/I&O/Wt Last Vital Signs Temp 99.4 F 11/11/19 19:41 Pulse 111 H 11/11/19 19:41 Resp 18 11/11/19 19:41 BP 155/84 11/11/19 19:41 Pulse Ox 91 11/11/19 19:41 11/11/19 11/11/19 11/11/19 06:59 14:59 22:59 Intake Total 778.333 / 828.333 120 / 120 1190 / 1310 Output Total 45 / 445 200 / 200 300 / 500 Balance 733.333 / 383.333 -80 / -80 890 / 810 Physical Exam Narrative: EXAM NARRATIVE: 54-year-old white male in mild distress from mild postoperative discomfort. He has a splint on the left lower extremity. He has a Hemovac drain in place. Calves are nontender bilaterally. Patient is cooperative. Data : 11/11/19 02:04 11/11/19 02:05 Micro: Microbiology 11/09/19 20:08 Blood Culture - Preliminary Blood Streptococcus species 11/09/19 20:05 Blood Culture - Preliminary Blood Staphylococcus species 11/09/19 20:18 Gram Stain - Final Knee - #2 Tissue Culture - Preliminary Staphylococcus species 11/11/19 11:31 Blood Culture - Preliminary Blood SPECIMEN COLLECTED 11/11/19 11:30 Blood Culture - Preliminary Blood SPECIMEN COLLECTED 11/10/19 15:46 Gram Stain - Final Knee - Left A&P Assessment and plan (1) Septic arthritis of knee, left: patient be kept nothing by mouth after midnight. Will repeat washout and remove drain during surgery and replaced with a new drain. Plan is to do primary closure over drain. This of this. Patient's last trip to the operating room. Have discussed with medical team he'll require a PICC line to be placed on Wednesday for 6 weeks of intravenous antibiotics antibiotics to be determined based on sensitivities from staph species growing at present time. Heparin drip using to treat his left lower extremity DVT to be stopped at approximate 6:30 prior to surgery at 0930 hrs. on 11/12/2019. Patient should be able to be discharged shortly after arrangements can be made for intravenous antibiotics. Follow-up in the office in 2 weeks on 11/24/2019 for wound check, suture removal with application of Steri-Strips placed in a Real brace locked in extension until his incision has healed with progressive range of motion. Patient be partial weightbearing on the left lower extremity due to the corticotomy that we placed in the anterior cortex in the supracondylar region of the left femur. Patient had obvious septic arthritis presumed osteomyelitis of the left distal femur. Monitor hemoglobin and hematocrit. Status: Acute Qualifiers: Septic arthritis organism: staphylococcal Qualified Code(s): M00.062 - Staphylococcal arthritis, left knee (2) DVT (deep venous thrombosis): Status: Acute Qualifiers: Affected thrombotic vein of extremity: popliteal Chronicity: acute DVT location: lower extremity Laterality: left Qualified Code(s): I82.432 - Acute embolism and thrombosis of left popliteal vein Attestations Medical Necessity Statement*: patientpatient requires continued inpatient level care for potentially life-threatening if not limb threatening infection to the left lower extremity. He'll require long-term intravenous antibiotics due to his severe infection. He may require transfusions during this hospitalization. Due to blood loss caused from surgery and his anticoagulation for his blood clot in the left lower extremity. Time Spent in Patient Care: 16 - 35 minutes (>than 50% of time spent in counselling and/or direct pt care on unit) . 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
[2019-11-11 21:31] LABS: Partial Thromboplastin Time 33.7 SECONDS (23.9-36.7)
[2019-11-12] VITALS (20 sets, daily range): BP systolic 113–169; BP diastolic 55–79; PULSE 88–115; RESP 16–24; TEMP 36.4–38.4; O2SAT 91–98
[2019-11-12] MEDS: ketorolac 30 mg/mL INJ IVP ×3 (00:06→17:04)
[2019-11-12] MEDS: sodium chloride 0.9% 1,000 ML 100 ML IV (02:23)
[2019-11-12] MEDS: oxyCODONE 5 mg IR Tab/Cap PO (03:38)
[2019-11-12] MEDS: heparin drip 25,000 UNIT/500 ML PREMIX 19 UNIT IV (04:12)
[2019-11-12] MEDS: HYDROmorphone 1 mg/mL INJ 1 mL 0.5 MG IVP ×3 (04:21→20:55)
[2019-11-12 04:29] LABS: Basophils # 0.1 10^3/uL (0.0-0.1); Basophils % 0.2 %; Hematocrit 25.9 % (42.0-52.0); Hemoglobin 8.7 g/dL (11.7-16.6); Lymphocytes # 1.6 10^3/uL (0.8-4.8); Lymphocytes % 5.3 %; Mean Corpuscular HGB Conc 33.6 g/dL (30.0-36.0); Mean Corpuscular Hemoglobin 30.4 pg (28.0-34.0); Mean Corpuscular Volume 90.6 fL (80-94); Mean Platelet Volume 8.8 fL (7.4-10.4); Monocytes # 1.2 10^3/uL (0.2-0.9); Neutrophils # 27.4 10^3/uL (1.8-7.7); Nucleated Red Blood Cells % 0 %; Platelet Count 519 10^3/cmm (130-400); Red Blood Count 2.86 10^6/uL (4.1-5.3)
[2019-11-12 04:39] LABS: Partial Thromboplastin Time 33.4 SECONDS (23.9-36.7)
[2019-11-12 04:49] LABS: Anion Gap 15.3 (5-19); Blood Urea Nitrogen 19 mg/dL (6-20); Calcium 7.5 mg/dL (8.5-10.5); Carbon Dioxide 22 mmol/L (22-29); Chloride 92 mmol/L (98-107); Glomerular Filtration Rate 116.7 mL/min (90-130); Glucose 120 mg/dL (65-115); Magnesium 1.9 mg/dL (1.7-2.3); Osmolality Calculated 260 mOsm/kg (285-295); Phosphorus 2.2 mg/dL (2.5-4.5); Potassium 3.3 mmol/L (3.5-5.1); Sodium 126 mmol/L (136-145)
[2019-11-12] MEDS: heparin 5,000 unit/mL INJ 1 mL IV (05:01)
[2019-11-12 06:11] LABS: White Blood Count 31.1 10^3/uL (4.0-10.0)
--- NOTE | 2019-11-12 08:36 | SUR.PREOP ---
pt sleeps with cloth over eyes if not disturbed to OPS per bed earlier sats on ra 93% now down to 89% with snoring pt placed on 3lnc pt awakes easily rates pain at 7 then back to sleep lt lower leg pale warm cap refill less than 3 seconds pulses x 2 to foot palpated and marked dorsalis pedis and posterior tibial. IV NS at KVO rate to lt AC IV site.
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
--- NOTE | 2019-11-12 09:57 | PC.NURSE ---
Dr. Sneed notified at 0918 of patient with positive blood cultures gram positive cocci clusters.
[2019-11-12] MEDS: piperacillin-tazobactam 3.375 GM in sodium chloride 0.9% (plus) 50 ML IV ×2 (10:01→16:50)
--- NOTE | 2019-11-12 10:36 | SUR.OPER ---
REMOVED OLD DRAIN AT BEGINNING CASE AND INSERTED 10FR HEMOVAC AT END OF SURGICAL CASE BY DR. KING
[2019-11-12] MEDS: neomycin-poly-bacitracin oint 28 gm 1 APPLIC TOPICAL (10:44)
--- NOTE | 2019-11-12 10:58 | ANE.PACU2 ---
Inpatient post-anesthesia follow up: Airway intact: Yes Vital signs: Temperature 101.2 F Pulse Rate [Left R adial] 106 Pulse Rate 104 Respiratory Rate 20 Blood Pressure [Le ft Arm] 119/72 Blood Pressure 155/76 Pulse Oximetry 98 Oxygen Delivery Me thod Nasal Cannula Oxygen Flow Rate 3 Fraction of Inspir ed Oxygen Hydration adequate: Yes Nausea and vomiting: No Pain level: 7 Pain level: fentanyl given in pacu Mental status: Baseline
--- NOTE | 2019-11-12 11:05 | PM.OP ---
Operative Report Date of procedure: November 12, 2019 Pre-op Diagnosis: Septic arthritis left knee Pre-op Diagnosis: septic arthritis left knee Soft tissue abscess left thigh Osteomyelitis left distal femur Post-op diagnosis: same Post-op Findings: Decreased purulence noted within wound left knee Procedure Done: Incision and drainage of left knee via previous arthrotomy. With irrigation and debridement (synovectomy and clots from within wound) primary closure over drain Specimens removed/disposition: synovial tissue left knee Pathology: none sent Surgeon: Logan Ford Anesthesia: General Estimated blood loss (mL): 20 Tourniquet time (min): 0 (tourniquet not used) Complications: None Findings: The patient had purulent serosanguineous discharge in his Hemovac drain. Reopening the knee joint through the arthrotomy and the quadriceps tendon we noted that there was purulence but not under pressure is at his index surgery. At the conclusion of the washout the fluid that was being removed was very clear. No gross purulence noted within the intramedullary canal of the femur through the previous corticotomy site. Condition: stable Disposition: PACU Brief History: 54-year-old white male for return trip to the operating to washout his wound from previous incision and drainage arthrotomy of his left knee to evacuate septic arthritis and soft tissue abscess formation. Patient aware he may require further surgery. We may not be able to eradicate the infection.. He is aware that he will be being placed on 6 weeks of IV antibiotics once sensitivities are known. Medical complications can include blood clots (which he already has in his left lower extremity, failure to eradicate infection and risk up to including . All questions answered patient agreeable to proceed with surgery. Procedure: Patient was identified. Surgical site was signed. Surgical permit was signed. The patient was taken back to the operating room. He did not give any specific prophylactic antibiotics to the patient prior surgery he is on regular scheduled antibiotics as recommended by the hospital team. r He was placed supine on the operating room table. His placed under general anesthesia without difficulty. A bump was placed on the ipsilateral buttock. I pulled his drain that had been left from his index surgery on 11/10/2019. Patient sterilely prepped and draped usual fashion. Timeout was performed. I used pickups and scissors to remove the previously placed skin sutures. I then removed a few of the subcutaneous Monocryl sutures and then removed the 3 [id number] PDS sutures and the quadriceps tendon. On this occasion we encountered some purulent material but was not under pressure has in her index surgery on 11/10/2019. A self-retaining retractors placed in the longitudinal split of the quadriceps tendon. There are some purulent synovial tissue that was removed with a rongeur. Some clots were evacuated. The wound was then copiously irrigated with antibiotic containing pulsatile lavage. I used a pressure of the medial and lateral aspects of the thigh as well as the anterior and posterior tibial, fluid in the soft tissues into the wound. No significant outflow purulent material was noted we did these maneuvers as you done on his index surgery and 5:15. Also placed pressure on the posterior medial aspect of the knee in the popliteal fossa and some purulent fluid but not as significant as his index of surgery were produced. No gross purulence was noted in the area of the corticotomy site of the distal femur. We irrigated the distal femoral corticotomy site as well as around the medial aspect of the femur where there had been abscess cavity posteriorly in the knee. We then suctioned the saline with antibiotic solution from the knee and then placed a dilute Betadine solution the lateral distal to soak her posterior 3 minutes. We then suctioned out the Betadine and then repeated the lavage with the antibiotic containing saline solution. We then closed the quadriceps arthrotomy after placing a Hemovac drain from inside out to replace the previously 1 been placed. The arthrotomy site was closed with sutures of #1 PDS. Subcutaneous disclosures of 2-0 Monocryl and this time nya were applied on skin. We injected the soft tissues about the knee with 20 mL of one-to-one mixture 1% lidocaine with epinephrine half percent Marcaine. Antibiotic ointment was applied to the incision site as well as drain slight followed by application of dressings web roll and Anthony overwrap. The patient was aroused from general anesthesia. He was taken to recovery room. He tolerated surgery well. All counts are correct.
--- NOTE | 2019-11-12 11:17 | SUR.PHASEI ---
PT AWAKE ALERT SEE FENTANYL 100 MCG GIVEN ON ARRIVAL TO PACU BY GRINDER SET UP OPERATOR SURFACE, PT DOZING OFF AND ON GOOD RESP DRESSING D/I DISTAL FOOT PALE WARM PULSES DOPPLED AND UNCHANGED MONITOR SR NO ECTOPY NOTED AT 105 RATE. MELCHOR DRAIN COMPRESSED WITH SMALL AMT PINK DRAINAGE NOTED TO TUBING.
[2019-11-12] MEDS: sodium chloride 0.9% 1,000 ML 30 ML IV (11:42)
[2019-11-12] MEDS: acetaminophen 500 mg Tablet 1000 MG PO ×2 (11:47→20:53)
--- NOTE | 2019-11-12 11:49 | SUR.PHASEI ---
1230 PT TO ROOM PER BED PT ALERT RESPONDS TO NURSE AMELIA RN , BP 129/63, HR 98, SATS ON 3LNC 94%
--- NOTE | 2019-11-12 12:08 | PC.OT ---
OT note: Pt to have surgery today. Will hold.
--- NOTE | 2019-11-12 12:42 | PC.NURSE ---
Critical lab positive MRSA blood cultures and tissue notified Dr. Sneed.
--- NOTE | 2019-11-12 14:29 | P.PN_ITS ---
Subjective Subjective: Interval history: Volodymyr reports he feels little bit better. A little less pain. Medications: Reviewed: Yes Vitals/I&O/Wt Last Vital Signs Temp 98.7 F 11/12/19 13:00 Pulse 92 11/12/19 13:00 Resp 22 H 11/12/19 13:00 BP 136/68 11/12/19 13:00 Pulse Ox 94 11/12/19 13:00 11/11/19 11/12/19 11/12/19 22:59 06:59 14:59 Intake Total 1603.867 / 8402.937 1715.433 / 4003.300 951.667 / 951.667 Output Total 300 / 500 850 / 1350 210 / 210 Balance 1303.867 / 2971.721 7843.433 / 2653.300 741.667 / 741.667 Physical Exam Narrative: EXAM NARRATIVE: General exam is no apparent distress Cardiovascular mild tachycardia Lungs clear Abdomen is soft positive bowel sounds Extremities no cyanosis clubbing or edema Data : 11/12/19 04:12 11/12/19 04:12 Micro: Microbiology 11/09/19 20:18 Gram Stain - Final Knee - #2 Tissue Culture - Preliminary Methicillin Resis Staph Aureus 11/09/19 20:05 Blood Culture - Preliminary Blood Methicillin Resis Staph Aureus 11/11/19 11:30 Blood Culture - Preliminary Blood Gram positive cocci 11/11/19 11:31 Blood Culture - Preliminary Blood Gram positive cocci 11/12/19 04:04 Blood Culture - Preliminary Blood SPECIMEN COLLECTED 11/12/19 04:08 Blood Culture - Preliminary Blood SPECIMEN COLLECTED 11/09/19 20:08 Blood Culture - Preliminary Blood Streptococcus species A&P Assessment and plan (1) DVT (deep venous thrombosis): Discontinue heparin drip tonight Transition to Eliquis Status: Acute Qualifiers: Affected thrombotic vein of extremity: popliteal Chronicity: acute DVT location: lower extremity Laterality: left Qualified Code(s): I82.432 - Acute embolism and thrombosis of left popliteal vein (2) Abnormal finding on imaging: Clarified by MRI. Consistent with osteomyelitis and abscess. Continue vancomycin, Zosyn. Await cultures Appreciate orthopedic consultation and intervention Will need a PICC line. Hold off until cultures from November 11 are negative. Will reorder per tentatively for Wednesday Blood cultures has now come back positive for MRSA. Will check a transthoracic echo. Consider ANABELLA. Status: Acute (3) Leukocytosis: Secondary to abscess, osteomyelitis Status: Acute Qualifiers: Leukocytosis type: unspecified Qualified Code(s): D72.829 - Elevated white blood cell count, unspecified Additional A&P Information Prostate abscess late August requiring surgery and prolonged antibiotics, given orally as an outpatient Hypokalemia, supplement History of GERD, proton pump inhibitor Full code Heparin for DVT prophylaxis Attestations Medical Necessity Statement*: Hospitalization for IV antibiotics secondary to MRSA bacteremia Coding Level of Care Code Acute Operation Agent for g Fwd Diagnoses DVT (deep venous thrombosis) I82.432 Affected thrombotic vein of extremity: popliteal Chronicity: acute DVT location: lower extremity Laterality: left Abnormal finding on imaging R93.89 Leukocytosis D72.829 Leukocytosis type: unspecified
--- NOTE | 2019-11-12 15:11 | USCV_ITS ---
Volodymyr Stratton Age: 54 Gender: M : 1965 Exam Date: 11/12/2019 07:33 Ordering Phys: Joe Sneed MD Technologist: Kristin Cruz Exam Location: [facility] – [place] Indication: Bacteremia BP: 141 / 68 HR: 102 Rhythm: Sinus Tachycardia Technical Quality: Fair MEASUREMENTS (Male / Female) Normal Values 2D ECHO LV Diastolic Diameter PLAX 4.7 cm 4.2 - 5.9 / 3.9 - 5.3 cm LV Systolic Diameter PLAX 3.3 cm LV Chamber Size 3.4 cm IVS Diastolic Thickness 0.9 cm 0.6 - 1.0 / 0.6 - 0.9 cm IVS Systolic Thickness 1.1 cm LVPW Diastolic Thickness 1.1 cm 0.6 - 1.0 / 0.6 - 0.9 cm LVPW Systolic Thickness 1.9 cm RV Chamber Size 2.0 cm LVOT Diameter 2.1 cm LV Ejection Fraction 2D Teich 57.7 % LV Ejection Fraction MOD 2C 52.6 % LV Ejection Fraction 2C AL 51.2 % LA Diameter 3.7 cm LA Width 3.7 cm LA Height 4.0 cm RA Width 3.1 cm RA Height 3.7 cm Aorta at Sinotubular Diameter 2.7 cm M-MODE LV Diastolic Diameter MM 5.2 cm 4.2 - 5.9 / 3.9 - 5.3 cm LV Systolic Diameter MM 3.9 cm LV Ejection Fraction MM Teich 49.2 % IVS Diastolic Thickness MM 1.3 cm 0.6 - 1.0 / 0.6 - 0.9 cm IVS Systolic Thickness MM 1.6 cm LVPW Diastolic Thickness MM 1.4 cm 0.6 - 1.0 / 0.6 - 0.9 cm LVPW Systolic Thickness MM 1.8 cm Aortic Annulus Diameter 3.3 cm LA Ao Ratio MM 1.1 MV E Point Septal Separation 0.7 cm DOPPLER AV Peak Velocity 140.0 cm/s LVOT Peak Velocity 91.0 cm/s AV Area Cont Eq vti 2.1 cm squared AV Area Cont Eq pk 2.2 cm squared MV Area PHT 5.0 cm squared Mitral E to A Ratio 1.0 MV E' Velocity 13.0 cm/s Mitral E to MV E' Ratio 9.0 Mitral E to LV E' Lateral Ratio 7.5 Mitral E to LV E' Septal Ratio 11.4 TV Peak E Velocity 63.0 cm/s Right Atrial Pressure 3.0 mmHg FINDINGS Left Ventricle Normal left ventricular cavity size. Mildly decreased left ventricular systolic function. Left ventricular ejection fraction is estimated at 45-50 %. There is moderate septal hypokinesis. Abnormal septal motion consistent with conduction abnormality. Normal diastolic function. Right Ventricle Normal right ventricular size and systolic function. Right Atrium Normal right atrial size. Right atrial pressure estimated at 3 mmHg. Left Atrium Normal left atrial size. Mitral Valve Moderately thickened mitral valve. Moderate mitral valve regurgitation. Aortic Valve Structurally normal trileaflet aortic valve. No aortic valve stenosis. No aortic valve regurgitation. Tricuspid Valve Structurally normal tricuspid valve. Mild to moderate tricuspid valve regurgitation. Pulmonic Valve Structurally normal pulmonic valve. Trace pulmonary valve regurgitation. Pericardium No pericardial effusion. Aorta Normal-sized aortic root. CONCLUSIONS 1. Normal left ventricular cavity size. Mildly decreased left ventricular systolic function. Left ventricular ejection fraction is estimated at 45-50 %. There is moderate septal hypokinesis. Abnormal septal motion consistent with conduction abnormality. Normal diastolic function. 2. Normal right ventricular size and systolic function. 3. Moderate mitral valve regurgitation. 4. Mild to moderate tricuspid valve regurgitation. 5. No evidence of vegetation based on the study. 6. No prior similar studies to compare. Cecile Campos MD (Electronically Signed) Final Date: 12 Nov 2019 14:30 S
[2019-11-12] MEDS: sennosides-docusate Tablet 2 TAB PO (16:48)
[2019-11-12] MEDS: apixaban 5 mg Tablet 10 MG PO (16:48)
[2019-11-12] MEDS: mupirocin oint 22 gm 1 APPLIC NASAL (16:49)
[2019-11-12] MEDS: TRAMadol 50 mg Tablet PO (16:49)
--- NOTE | 2019-11-12 23:54 | PC.NURSE ---
PHYSICIAN NOTIFICATION: reported positive 2/4 gram+ cocci in clusters at 2256 via secure messaging PHYSICIAN RESPONSE: phys to floor - verbally - No new orders at
[2019-11-13] VITALS (14 sets, daily range): BP systolic 139–157; BP diastolic 68–85; PULSE 68–113; RESP 18–21; TEMP 37.1–38.1; O2SAT 90–96
[2019-11-13] MEDS: oxyCODONE 5 mg IR Tab/Cap PO ×4 (00:31→21:54)
[2019-11-13] MEDS: vancomycin 1,000 MG in sodium chloride 0.9% 250 ML 250 MG IV ×2 (01:42→13:22)
[2019-11-13] MEDS: HYDROmorphone 1 mg/mL INJ 1 mL 0.5 MG IVP ×2 (01:42→06:38)
[2019-11-13] MEDS: piperacillin-tazobactam 3.375 GM in sodium chloride 0.9% (plus) 50 ML IV ×3 (03:44→17:55)
[2019-11-13 05:35] LABS: Basophils # 0.1 10^3/uL (0.0-0.1); Basophils % 0.2 %; Eosinophils # 0.1 10^3/uL (0.0-0.8); Eosinophils % 0.2 %; Hematocrit 23.9 % (42.0-52.0); Hemoglobin 8.1 g/dL (11.7-16.6); Lymphocytes # 0.9 10^3/uL (0.8-4.8); Lymphocytes % 3.4 %; Mean Corpuscular HGB Conc 33.9 g/dL (30.0-36.0); Mean Corpuscular Hemoglobin 30.2 pg (28.0-34.0); Mean Corpuscular Volume 89.2 fL (80-94); Mean Platelet Volume 8.8 fL (7.4-10.4); Monocytes % 3.8 %; Neutrophils # 23.9 10^3/uL (1.8-7.7); Neutrophils % 90.6 %; Nucleated Red Blood Cells % 0 %; Platelet Count 574 10^3/cmm (130-400); Red Blood Count 2.68 10^6/uL (4.1-5.3); Red Cell Distribution Width 14.8 % (12.1-15.1); White Blood Count 26.4 10^3/uL (4.0-10.0)
[2019-11-13 05:57] LABS: Anion Gap 13.9 (5-19); Blood Urea Nitrogen 18 mg/dL (6-20); Carbon Dioxide 23 mmol/L (22-29); Chloride 98 mmol/L (98-107); Glomerular Filtration Rate 116.7 mL/min (90-130); Glucose 130 mg/dL (65-115); Osmolality Calculated 272 mOsm/kg (285-295); Sodium 132 mmol/L (136-145)
[2019-11-13 06:14] LABS: Potassium 2.9 mmol/L (3.5-5.1)
--- NOTE | 2019-11-13 06:25 | PC.NURSE ---
PHYSICIAN NOTIFICATION: Notified 618 of critical Kcl 2.9 READ at 0619 no new orders at this time
[2019-11-13] MEDS: apixaban 5 mg Tablet 10 MG PO ×2 (07:56→17:54)
[2019-11-13] MEDS: mupirocin oint 22 gm 1 APPLIC NASAL ×2 (07:57→17:54)
[2019-11-13] MEDS: pantoprazole DR 40 mg Tablet PO (07:57)
--- NOTE | 2019-11-13 09:00 | P.PN_ITS ---
Subjective Subjective: Interval history: 54-year-old white male postoperative day 3 from initial surgery and postoperative day 1 from washout performed yesterday of his left knee. Patient has a septic arthritis and osteomyelitis of the distal femur causative organism appears to be methicillin-resistant staph aureus. The patient had a PICC line placed today for long-term IV antibiotics. I removed his drain at the bedside. A left his dressing intact. Vitals/I&O/Wt Last Vital Signs Temp 98.3 F 11/14/19 07:00 Pulse 92 11/14/19 08:58 Resp 18 11/14/19 08:58 BP 158/84 11/14/19 07:00 Pulse Ox 91 11/14/19 08:58 11/13/19 11/14/19 11/14/19 22:59 06:59 14:59 Intake Total 170 / 640 Output Total 1545 / 1645 1100 / 2745 Balance -1375 / -1005 -1100 / -2105 Physical Exam Narrative: EXAM NARRATIVE: 54-year-old white male no acute distress. He has had a PICC line placed. I removed his drain at the bedside. His dressing right lower extremity remains clean dry and intact with no strikethrough. Digits are sensate with normal capillary refill postoperative limb. Data : 11/14/19 06:21 11/14/19 06:21 Micro: Microbiology 11/13/19 05:17 Blood Culture - Preliminary Blood NEGATIVE TO DATE 11/13/19 05:13 Blood Culture - Preliminary Blood NEGATIVE TO DATE 11/09/19 20:18 Gram Stain - Final Knee - #2 Tissue Culture - Final Methicillin Resis Staph Aureus 11/10/19 15:46 Gram Stain - Final Knee - Left Wound Culture - Preliminary Staphylococcus aureus 11/11/19 11:31 Blood Culture - Preliminary Blood Gram positive cocci 11/11/19 11:30 Blood Culture - Preliminary Blood Gram positive cocci 11/12/19 04:08 Blood Culture - Preliminary Blood Gram positive cocci 11/12/19 04:04 Blood Culture - Preliminary Blood Gram positive cocci A&P Assessment and plan (1) Osteomyelitis: patient to receive 6 weeks of IV antibiotics. His remain partial weightbearing on the left lower extremity due to the corticotomy was placed to evacuate the purulent material within the intramedullary canalleft distal femur. patient to be kept in long leg knee immobilizer with knee in extension but this dressing intact. Sponge bathe only. Crutch or walker ambulation with partial weightbearing left lower extremity. Patient be discharged when his pain can be controlled with oral medication only. Anticoagulant therapy at discharge per medical team. Patient to follow-up in the orthopedic clinic with me on either November 21 or to remove his immobilizer, wound check, possible staple removal, x-rays of the left knee nonweightbearing AP and lateral and probable application of a Jose brace locked in extension. Status: Acute Qualifiers: Osteomyelitis type: other acute Osteomyelitis location: femur Laterality: left Qualified Code(s): M86.152 - Other acute osteomyelitis, left femur (2) Staphylococcus aureus bacteremia: Status: Acute (3) Bacteremia: Status: Acute (4) Septic arthritis of knee, left: Status: Acute Qualifiers: Septic arthritis organism: staphylococcal Qualified Code(s): M00.062 - Staphylococcal arthritis, left knee (5) DVT (deep venous thrombosis): Status: Acute Qualifiers: Affected thrombotic vein of extremity: popliteal Chronicity: acute DVT location: lower extremity Laterality: left Qualified Code(s): I82.432 - Acute embolism and thrombosis of left popliteal vein Attestations Medical Necessity Statement*: patient requires continued inpatient level care for serious infection of his left lower extremity. Patient is okay to be discharged from orthopedic perspective went home antibiotics have been arranged in his pain can be controlled with oral medications. Patient has been signed out to Dr. Thornton orthopedic surgeon director internal control Time Spent in Patient Care: less than 15 minutes Coding Level of Care Code Acute Fabric Stretcher for [facility] Diagnoses Osteomyelitis M86.152 Osteomyelitis type: other acute Osteomyelitis location: femur Laterality: left Staphylococcus aureus bacteremia R78.81; B95.61 Bacteremia R78.81 Septic arthritis of knee, left M00.062 Septic arthritis organism: staphylococcal DVT (deep venous thrombosis) I82.432 Affected thrombotic vein of extremity: popliteal Chronicity: acute DVT location: lower extremity Laterality: left
--- NOTE | 2019-11-13 10:01 | XR_ITS ---
WS: [id number] Portable AP upright chest, 11/13/2019 Clinical Data: Picc line placement Comparison: Portable chest, 11/10/2019 Findings: The right PICC line ends in the superior vena cava. No pneumothorax is noted. There is patc hy opacity in the right lung which could represent pneumonia. There is also a small right effusion. I s minimal patchy opacity overlying the left diaphragm. The heart size is normal. Monitor leads are on the chest wall. XR/XR chest 1V portable [id number] Impression: 1. Insertion of right PICC line. 2. Patchy opacities at both lung bases especially on the right which could repr esent minimal pneumonia. 3. Small right pleural effusion.
[2019-11-13] MEDS: acetaminophen 500 mg Tablet 1000 MG PO ×2 (11:32→18:21)
[2019-11-13 11:55] LABS: Glucose Point of Care 153 mg/dL (70-110)
--- NOTE | 2019-11-13 12:35 | ECG_ITS ---
Measurements Intervals [place] Rate: 105 P: 38 IA: 136 QRS: -21 QRSD: 153 T: 83 QT: 377 QTc: 499 SINUS TACHYCARDIA POSSIBLE LEFT ATRIAL ENLARGEMENT LEFT BUNDLE BRANCH BLOCK No previous ECG available for comparison Electronically Signed On 11-13-2019 19:43:49 CDT by Cecile Campos M.D. [email or web address]
--- NOTE | 2019-11-13 12:44 | PM.PN ---
Subjective Subjective: Interval history: He says he is feeling somewhat worn out. Has a T-shirt over his face, stating that the light has been bothering him, although says that this is nothing new. Says that he has had this going on for a long time due to blue eyes . Does not have headache. Vitals/I&O/Wt Last Vital Signs Temp 100.6 F H 11/13/19 11:00 Pulse 113 H 11/13/19 11:00 Resp 20 H 11/13/19 11:00 BP 139/68 11/13/19 11:00 Pulse Ox 92 11/13/19 11:00 11/12/19 11/13/19 11/13/19 22:59 06:59 14:59 Intake Total 290 / 1241.667 170 / 170 Output Total 250 / 460 330 / 790 100 / 100 Balance 40 / 781.667 -330 / 451.667 70 / 70 Physical Exam Const: COMMON NORMALS: no acute distress and patient oriented x3 HENMT: COMMON NORMALS: oropharynx normal Neck/C-Spine: COMMON NORMALS: no JVD Resp: COMMON NORMALS: normal respiratory effort AUSCULTATION: wheezes (mild wheeze on the left) Cardio: COMMON NORMALS: no JVD, regular rhythm, S1 normal heart sound present, S2 normal heart sound present and No murmurs present (Cardio) RHYTHM: regular rhythm HEART SOUNDS: S1 normal heart sound present and S2 normal heart sound present GI: COMMON NORMALS: Normal to inspection, nondistended, normoactive bowel sounds present, Soft to palpation and non-tender PALPATION: Yes Soft to palpation Extremity: COMMON NORMALS: no joint enlargement GENERAL: Yes edema (1+ LLE) Neuro: COMMON NORMALS: patient oriented x3 and moves all extremities Skin: COMMON NORMALS: no rashes or lesions noted GENERAL SKIN EXAM: no rashes or lesions noted Data : 11/13/19 05:13 11/13/19 05:13 Micro: Microbiology 11/11/19 11:31 Blood Culture - Preliminary Blood Gram positive cocci 11/11/19 11:30 Blood Culture - Preliminary Blood Gram positive cocci 11/12/19 04:08 Blood Culture - Preliminary Blood Gram positive cocci 11/12/19 04:04 Blood Culture - Preliminary Blood Gram positive cocci 11/13/19 05:17 Blood Culture - Preliminary Blood SPECIMEN COLLECTED 11/13/19 05:13 Blood Culture - Preliminary Blood SPECIMEN COLLECTED 11/10/19 15:46 Anaerobic Culture - Preliminary Knee - #1 11/10/19 15:46 Gram Stain - Final Knee - Left Wound Culture - Preliminary Staphylococcus aureus 11/09/19 20:18 Gram Stain - Final Knee - #2 Tissue Culture - Preliminary Methicillin Resis Staph Aureus 11/09/19 20:05 Blood Culture - Preliminary Blood Methicillin Resis Staph Aureus A&P Assessment and plan (1) Bacteremia: Gram-positive cocci. Suspected perhaps Staphylococcus aureus given prior cultures. TTE was unremarkable, however, with history of prostate abscess, currently septic arthritis discussed with him closer assessment by ANABELLA. Discussed with him in case of cardiac abscess, or other additional normality with persistent bacteremia sometime surgical intervention may be necessary for clearance. Appreciate cardiology consultation. This morning low-grade temp 100.6. I see that he has had a PICC line placed. Discussed with him ideally PICC line placement would have been delayed, and that we will need to be cautious, closely follow-up culture results, follow his fever trends, we may need to redraw additional cultures. He verbalized understanding, agreement with plan. Status: Acute (2) DVT (deep venous thrombosis): Eliquis Status: Acute Qualifiers: Affected thrombotic vein of extremity: popliteal Chronicity: acute DVT location: lower extremity Laterality: left Qualified Code(s): I82.432 - Acute embolism and thrombosis of left popliteal vein (3) Abnormal finding on imaging: Osteomyelitis distal femur, possibly also tibial plateau. Abscess of left knee joint. Pockets extending into muscle around the knee. Status post cleaning in OR. Drain was pulled by orthopedics today. Continue vancomycin, Zosyn. Pending Vanco trough. Discussed with him he will need 6 weeks antibiotics due to osteomyelitis. With his renal function, I am not sure whether once daily dosing vancomycin will be sufficient. Still pending ID and sensitivity on blood cultures. I see that his PICC line is already placed. So far latest blood culture is negative. Continue to monitor. Redraw including from PICC line if cultures still positive. Hopefully PICC line will not need to be removed. Blood cultures has now come back positive for MRSA. Status: Acute (4) Leukocytosis: Secondary to abscess, osteomyelitis Status: Acute Qualifiers: Leukocytosis type: unspecified Qualified Code(s): D72.829 - Elevated white blood cell count, unspecified Additional A&P Information Prostate abscess late August requiring surgery and prolonged antibiotics, given orally as an outpatient Hypokalemia, supplement History of GERD, proton pump inhibitor Full code Heparin for DVT prophylaxis Attestations Medical Necessity Statement*: Continue admission for assessment management of septic arthritis, bacteremia, VTE. Coding Level of Care Code Acute Telephone Services Sales Representative for [facility] Fwd Diagnoses Bacteremia R78.81 DVT (deep venous thrombosis) I82.432 Affected thrombotic vein of extremity: popliteal Chronicity: acute DVT location: lower extremity Laterality: left Abnormal finding on imaging R93.89 Leukocytosis D72.829 Leukocytosis type: unspecified
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
[2019-11-13] MEDS: TRAMadol 50 mg Tablet PO (21:22)
[2019-11-14] VITALS (13 sets, daily range): BP systolic 142–158; BP diastolic 57–84; PULSE 80–115; RESP 16–20; TEMP 36.4–37.7; O2SAT 91–96
[2019-11-14] MEDS: vancomycin 1,000 MG in sodium chloride 0.9% 250 ML 250 MG IV ×2 (01:29→14:54)
[2019-11-14] MEDS: oxyCODONE 5 mg IR Tab/Cap PO ×4 (01:48→21:51)
[2019-11-14] MEDS: piperacillin-tazobactam 3.375 GM in sodium chloride 0.9% (plus) 50 ML IV ×3 (02:53→18:56)
[2019-11-14] MEDS: TRAMadol 50 mg Tablet PO ×2 (02:58→19:35)
[2019-11-14] MEDS: acetaminophen 500 mg Tablet 1000 MG PO ×2 (02:58→10:09)
--- NOTE | 2019-11-14 06:00 | USCV_ITS ---
Volodymyr Stratton Age: 54 Gender: M : 1965 Exam Date: 11/14/2019 07:48 Ordering Phys: Ted Ramirez MD ([email or web address]) Technologist: Lizzette Medina [place] [facility] [place]: [place]G BP: / HR: Rhythm: Sinus Technical Quality: GOOD MEASUREMENTS (Male / Female) Normal Values Medications Patient given IV sedation by anesthesia service, for details please refer to the anesthesia report. Complications None Proc. Components The patient was brought to the ANABELLA examination room-CPRU in a fasting state after obtaining an informed consent. The ANABELLA probe was passed into the posterior pharynx , mid-esophagus, distal esophagus, and gastric fundus. ANABELLA was performed at multiple levels. The patient tolerated the procedure well and there were no complications. FINDINGS Left Ventricle Normal left ventricular size, systolic function and wall thickness, with no regional wall motion abnormalities. Normal left ventricular wall thickness. Right Ventricle The right ventricle is normal in size and function. Right Atrium The right atrium is normal in size. Left Atrium The left atrium is normal in size. LA Appendage The LA appendage is normal. IA Septum Interatrial septum was intact with no evidence of PFO or ASD Mitral Valve Mild-moderate mitral valve regurgitation. Aortic Valve Structurally normal aortic valve without significant sclerosis or stenosis. There is no aortic regurgitation. Tricuspid Valve Trace of tricuspid regurgitation Pulmonic Valve Structurally normal pulmonic valve without significant stenosis. There is no pulmonic regurgitation. Pericardium Normal pericardium without effusion. Aorta Normal ascending aorta dimension. CONCLUSIONS This exam was completed on a [employer] Aplio 500 with a PST-30BT Multi-Frequency Sector Transducer. Mild-moderate mitral valve regurgitation. No intracardiac masses or vegetations. Normal cardiac chamber sizes. No evidence of any intracardiac shunt by color-flow Doppler examination or by saline contrast injection Normal LV size and ejection fraction. No similar previous studies are available for comparison Dr Ted Ramirez MD FACC (Electronically Signed) Final Date: 14 Nov 2019 16:37 S
[2019-11-14 06:46] LABS: Basophils # 0.1 10^3/uL (0.0-0.1); Basophils % 0.2 %; Eosinophils # 0.1 10^3/uL (0.0-0.8); Eosinophils % 0.4 %; Hematocrit 22.6 % (42.0-52.0); Hemoglobin 7.6 g/dL (11.7-16.6); Lymphocytes # 1.2 10^3/uL (0.8-4.8); Lymphocytes % 4.5 %; Mean Corpuscular HGB Conc 33.6 g/dL (30.0-36.0); Mean Corpuscular Hemoglobin 29.6 pg (28.0-34.0); Mean Corpuscular Volume 87.9 fL (80-94); Monocytes % 3.9 %; Neutrophils # 23.4 10^3/uL (1.8-7.7); Neutrophils % 88.8 %; Nucleated Red Blood Cells % 0 %; Platelet Count 623 10^3/cmm (130-400); Red Blood Count 2.57 10^6/uL (4.1-5.3); Red Cell Distribution Width 14.6 % (12.1-15.1); White Blood Count 26.3 10^3/uL (4.0-10.0)
[2019-11-14 07:01] LABS: Alanine Aminotransferase 20 U/L (0-41); Alkaline Phosphatase 151 IU/L (40-130); Aspartate Amino Transferase 21 U/L (0-40); Blood Urea Nitrogen 11 mg/dL (6-20); Calcium 7.5 mg/dL (8.5-10.5); Carbon Dioxide 23 mmol/L (22-29); Chloride 95 mmol/L (98-107); Creatinine Clr Calc Pharmacy 120.5104; Globulin 3.2 g/dL (1.3-4.6); Glomerular Filtration Rate 139.4 mL/min (90-130); Glucose 112 mg/dL (65-115); Osmolality Calculated 267 mOsm/kg (285-295); Sodium 130 mmol/L (136-145); Total Bilirubin 0.4 mg/dL (0.15-1.2); Total Protein 5.2 g/dL (6.6-8.7)
--- NOTE | 2019-11-14 07:02 | PC.NURSE ---
after speaking with Jordan YOUNG about ANABELLA procedure times, i went to brief the patient, asked standard questions including has he drank anything to which the patient said yes. I asked him, besides the sips i gave you with pain meds, how much, and what time? to which he replied I dont know, maybe 4 oclock or so, and 3 or 4 gulps or half of a small white cup. I reported this to Jordan YOUNG and he consulted anesthesia to which they stated the procedure was still on for 8am.
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
--- NOTE | 2019-11-14 07:51 | P.PN_ITS ---
Subjective Subjective: Interval history: Patient denies any chest pain or shortness of breath. No palpitation or dizziness. His hemoglobin seems to be dropping Medications: Reviewed: Yes Medication Review Details: Current Medications Acetaminophen (Tylenol) 1,000 mg PO Q8H [facility] Last Admin: 11/14/19 02:58 Dose: 1,000 mg Documented by: Apixaban (Eliquis) 10 mg PO BID [facility] Last Admin: 11/13/19 17:54 Dose: 10 mg Documented by: Hydromorphone HCl (Dilaudid Inj) 0.5 mg IVP Q4H PRN PRN Reason: SEVERE PAIN Last Admin: 11/13/19 06:38 Dose: 0.5 mg Documented by: Piperacillin Sod/Tazobactam (Sod 3.375 gm/ Sodium Chloride) 50 mls @ 12.5 mls/hr IV Q8H BETO; Protocol Last Admin: 11/14/19 02:53 Dose: 12.5 mls/hr Documented by: Vancomycin HCl 1,000 mg/ (Sodium Chloride) 250 mls @ 250 mls/hr IV Q12H BETO; Protocol Last Admin: 11/14/19 01:29 Dose: 250 mls/hr Documented by: Mupirocin (Bactroban) 1 applic NASAL BID BETO; Protocol Stop: 11/15/19 17:59 Last Admin: 11/13/19 17:54 Dose: 1 cream Documented by: Naloxone HCl (Narcan) 0.1 mg IV Q2M PRN PRN Reason: Respiratory rate less than 8. Ondansetron HCl (Zofran) 4 mg IVP Q6H PRN PRN Reason: vomiting, or N/V if npo Oxycodone HCl (Oxycodone Ir) 5 mg PO Q4H PRN PRN Reason: MODERATE PAIN Last Admin: 11/14/19 01:48 Dose: 5 mg Documented by: Pantoprazole Sodium (Protonix) 40 mg PO DAILY [facility] Last Admin: 11/13/19 07:57 Dose: 40 mg Documented by: Senna/Docusate Sodium (Senna-S) 2 tab PO BID [facility] Last Admin: 11/13/19 17:55 Dose: Not Given Documented by: Tramadol HCl (Ultram) 50 mg PO Q4H PRN PRN Reason: MILD TO MODERATE PAIN Last Admin: 11/14/19 02:58 Dose: 50 mg Documented by: Vitals/I&O/Wt Last Vital Signs Temp 98.3 F 11/14/19 07:00 Pulse 95 11/14/19 07:00 Resp 18 11/14/19 07:00 BP 158/84 11/14/19 07:00 Pulse Ox 93 11/14/19 07:00 11/13/19 11/14/19 11/14/19 22:59 06:59 14:59 Intake Total 170 / 640 Output Total 1545 / 1645 1100 / 2745 Balance -1375 / -1005 -1100 / -2105 Physical Exam Narrative: EXAM NARRATIVE: GENERAL: The patient is alert and oriented times three. Not in any acute distress. HEENT: Minimal pallor, icterus or lymphadenopathy. NECK: Trachea appears to be central. No masses noted. No JVD or thyromegaly appreciated. No carotid bruit. RESPIRATORY: Chest is symmetrical. No intercostals muscle retraction or any accessory muscle activation. There is no chest wall tenderness. Breath sounds are heard bilaterally. No rales or rhonchi heard. No evidence of any consolidation. BREASTS: Deferred. HEART: Heart sounds normal no S3 or S4. Systolic murmur of grade 3/6 in the mitral area. No diastolic murmurs. ABDOMEN: No vessel pulsations or distention. No tenderness. No organomegaly appreciated. No abdominal bruit. Bowel sounds are normally heard. : Deferred. RECTAL: Deferred. LYMPHATIC: No lymphadenopathy noted in the neck . EXTREMITIES: No edema or cyanosis. No clubbing. The left knee is bandaged MUSCULOSKELETAL: No acute joint deformities . Diffuse swelling of the left leg SKIN: There are no significant rashes or ecchymosis noted NEUROPSYCHIATRIC: The patient is alert and oriented x3. Appears to be easily irritable The higher functions are grossly within normal limits. No tremors or rigidity noted. Data : 11/14/19 06:21 11/14/19 06:21 Micro: Microbiology 11/13/19 05:17 Blood Culture - Preliminary Blood NEGATIVE TO DATE 11/13/19 05:13 Blood Culture - Preliminary Blood NEGATIVE TO DATE 11/09/19 20:18 Gram Stain - Final Knee - #2 Tissue Culture - Final Methicillin Resis Staph Aureus 11/10/19 15:46 Gram Stain - Final Knee - Left Wound Culture - Preliminary Staphylococcus aureus 11/11/19 11:31 Blood Culture - Preliminary Blood Gram positive cocci 11/11/19 11:30 Blood Culture - Preliminary Blood Gram positive cocci 11/12/19 04:08 Blood Culture - Preliminary Blood Gram positive cocci 11/12/19 04:04 Blood Culture - Preliminary Blood Gram positive cocci A&P Assessment and plan (1) Staphylococcus aureus bacteremia: Patient underwent transesophageal echocardiogram today. He was found to have mild to moderate mitral regurgitation. No evidence of endocarditis. No masses or vegetations noted. Status: Acute (2) Osteomyelitis: On IV antibiotics. Status: Acute Qualifiers: Laterality: left Osteomyelitis location: femur Osteomyelitis type: other acute Qualified Code(s): M86.152 - Other acute osteomyelitis, left femur (3) Mitral regurgitation: Patient has mild to moderate mitral regurgitation. He will not require any specific intervention at this time. May continue on the current measures. Status: Acute Qualifiers: Cardiac valve disease etiology: nonrheumatic Qualified Code(s): I34.0 - Nonrheumatic mitral (valve) insufficiency Additional A&P Information Since the patient's cardiovascular status seems to be stable with no evidence of endocarditis, he may not require any specific cardiac intervention at this point. Management as per the primary. I may sign off at this time. 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
[2019-11-14] MEDS: apixaban 5 mg Tablet 10 MG PO ×2 (08:57→18:55)
[2019-11-14] MEDS: pantoprazole DR 40 mg Tablet PO (08:57)
[2019-11-14] MEDS: mupirocin oint 22 gm 1 APPLIC NASAL ×2 (08:57→18:55)
--- NOTE | 2019-11-14 10:50 | PC.OT ---
OT tx attempted. Pt had just returned from procedure and declines tx at this time. OT to be attempted again later today if possible.
--- NOTE | 2019-11-14 11:43 | PC.CHAP ---
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 [] Patient/Family/Request visit [] Outpatient visit [] Follow-up visit [] Physician referral [] Code/Alert [] Routine visit [] Staff referral [] Actively dying [] Patient sleeping [] Family support [] [] Out of room [] Palliative care [] [] Receiving care in room [] Pre-surgical visit [] Trauma [] Long length of stay [] ICU visit [x] Other: [place] Relational/Emotional Strength [] Patient feels connected with others/family/visitors/staff [] Distress [] Loneliness/isolation [] Abandonment Spirituality of Patient [] Person of Dennise [] Attends Temple of their Dennise [] Believes in Prayer [] Reads Bible or Mormonism materials [] There are Spiritual issues to be addressed Mutual Fund Accountant Interventions [] Prayer [] Active listening [] Non-anxious presence [] Spiritual/emotional support [] Crisis/trauma care [] Spiritual counseling [] Bereavement support [] Provided bereavement packet [] Provided Bible/devotional materials [] Provided toy/stuffed animal, coloring book to patient or family member [] Provided Communion [] Anointing/[place] [] Salvation [] Completed spiritual assessment [] Other: Impact on Illness or Injury [] Angry [] Fearful [] Anxious [] Often cries [] Exhaustion [] Unable to work [] Unable to attend christianity [] Unable to walk/stand [] Unable to read [] Unable to drive [] Unable to eat/drink [] Unable to sleep [] Unable to be with family [] Patient intubated [] Other: Summary [place]olaton Time spent with patient 5 mins
[2019-11-14 14:01] LABS: Vancomycin Trough 10.8 ug/mL (10-15)
[2019-11-14 14:16] LABS: Gamma Glutamyl Transferase 66 U/L (8-61)
--- NOTE | 2019-11-14 17:44 | P.PN_ITS ---
Subjective Subjective: Interval history: The patient was seen in his room. He had worked with physical therapy and discussion was undertaken with them prior to the patient being seen. Dressing is dry and intact and not removed today. Physical therapy feels that the patient is doing better with decreasing pain, but he is still unable to partially weight-bear. Vitals/I&O/Wt Last Vital Signs Temp 99.2 F 11/14/19 15:00 Pulse 97 11/14/19 15:00 Resp 18 11/14/19 15:00 BP 152/79 11/14/19 15:00 Pulse Ox 95 11/14/19 15:00 11/14/19 11/14/19 11/14/19 06:59 14:59 22:59 Intake Total 300 / 940 Output Total 1100 / 2745 700 / 700 Balance -800 / -1805 -700 / -700 Physical Exam Narrative: EXAM NARRATIVE: Patient's dressing is dry and intact and is left in place. He is in his knee immobilizer. He has worked with physical therapy, but the dressing precludes any range of motion activities. There is no significant swelling distally and no evidence of DVT. Data : 11/14/19 06:21 11/14/19 06:21 Micro: Microbiology 11/12/19 04:04 Blood Culture - Final Blood Methicillin Resis Staph Aureus 11/12/19 04:08 Blood Culture - Final Blood Methicillin Resis Staph Aureus 11/11/19 11:31 Blood Culture - Final Blood Methicillin Resis Staph Aureus 11/11/19 11:30 Blood Culture - Final Blood Methicillin Resis Staph Aureus 11/09/19 20:08 Blood Culture - Final Blood Methicillin Resis Staph Aureus 11/09/19 20:05 Blood Culture - Final Blood Methicillin Resis Staph Aureus 11/10/19 15:46 Gram Stain - Final Knee - Left Wound Culture - Final Methicillin Resis Staph Aureus 11/13/19 05:17 Blood Culture - Preliminary Blood NEGATIVE TO DATE 11/13/19 05:13 Blood Culture - Preliminary Blood NEGATIVE TO DATE 11/09/19 20:18 Gram Stain - Final Knee - #2 Tissue Culture - Final Methicillin Resis Staph Aureus A&P Assessment and plan (1) Osteomyelitis: Patient is seen for Dr. Ford today. The dressing is not removed. The patient is encouraged to work with physical therapy and ambulation activities. Also, of note, he has not required IV narcotics over the past 24 hours and apparently, his pain is being controlled with oral pain medications. From an orthopedic standpoint, the patient will be able to be discharged and follow-up with Dr. Ford on November 23 in the office. He is to continue partial weightbearing secondary to his corticotomy. Status: Acute Qualifiers: Osteomyelitis type: other acute Osteomyelitis location: femur Laterality: left Qualified Code(s): M86.152 - Other acute osteomyelitis, left femur (2) Septic arthritis of knee, left: Status: Acute Qualifiers: Septic arthritis organism: staphylococcal Qualified Code(s): M00.062 - Staphylococcal arthritis, left knee Attestations Medical Necessity Statement*: Per medical service. The patient is able to be discharged from an orthopedic perspective. This was discussed with Dr. Ford. 

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
[2019-11-15] MEDS: vancomycin 1,000 MG in sodium chloride 0.9% 250 ML 250 MG IV ×2 (01:43→17:46)
[2019-11-15] MEDS: TRAMadol 50 mg Tablet PO (01:47)
[2019-11-15] MEDS: piperacillin-tazobactam 3.375 GM in sodium chloride 0.9% (plus) 50 ML IV ×3 (02:55→20:51)
[2019-11-15 03:00] VITALS: BP 148/76; PULSE 103; RESP 20; TEMP 37.5; O2SAT 95
[2019-11-15 03:46] LABS: Basophils # 0.1 10^3/uL (0.0-0.1); Basophils % 0.2 %; Eosinophils # 0.1 10^3/uL (0.0-0.8); Eosinophils % 0.5 %; Hematocrit 22.7 % (42.0-52.0); Hemoglobin 7.7 g/dL (11.7-16.6); Lymphocytes # 1.3 10^3/uL (0.8-4.8); Lymphocytes % 4.7 %; Mean Corpuscular HGB Conc 33.9 g/dL (30.0-36.0); Mean Corpuscular Hemoglobin 29.8 pg (28.0-34.0); Mean Platelet Volume 8.8 fL (7.4-10.4); Monocytes # 1.1 10^3/uL (0.2-0.9); Monocytes % 4.1 %; Neutrophils # 23.6 10^3/uL (1.8-7.7); Neutrophils % 88.7 %; Nucleated Red Blood Cells % 0 %; Platelet Count 723 10^3/cmm (130-400); Red Blood Count 2.58 10^6/uL (4.1-5.3); Red Cell Distribution Width 14.7 % (12.1-15.1); White Blood Count 26.6 10^3/uL (4.0-10.0)
[2019-11-15 04:01] LABS: Alanine Aminotransferase 24 U/L (0-41); Albumin Level 2.4 g/dL (3.5-5.2); Alkaline Phosphatase 118 IU/L (40-130); Aspartate Amino Transferase 24 U/L (0-40); Blood Urea Nitrogen 11 mg/dL (6-20); Calcium 8.1 mg/dL (8.5-10.5); Carbon Dioxide 22 mmol/L (22-29); Chloride 92 mmol/L (98-107); Creatinine Clr Calc Pharmacy 120.5104; Globulin 3.2 g/dL (1.3-4.6); Glomerular Filtration Rate 139.4 mL/min (90-130); Glucose 108 mg/dL (65-115); Osmolality Calculated 261 mOsm/kg (285-295); Sodium 127 mmol/L (136-145); Total Bilirubin 0.4 mg/dL (0.15-1.2); Total Protein 5.6 g/dL (6.6-8.7)
[2019-11-15 07:00] VITALS: BP 153/83; PULSE 104; RESP 18; TEMP 37.6; O2SAT 94
[2019-11-15 08:01] VITALS: RESP 17; O2SAT 97
[2019-11-15] MEDS: pantoprazole DR 40 mg Tablet PO (08:01)
[2019-11-15] MEDS: oxyCODONE 5 mg IR Tab/Cap PO ×2 (08:01→17:59)
[2019-11-15] MEDS: apixaban 5 mg Tablet 10 MG PO ×2 (08:16→17:47)
[2019-11-15] MEDS: mupirocin oint 22 gm 1 APPLIC NASAL (08:23)
[2019-11-15 11:00] VITALS: BP 144/80; PULSE 105; RESP 18; TEMP 37.2; O2SAT 93
--- NOTE | 2019-11-15 13:00 | CT_ITS ---
WS: [id number] CT LUMBAR SPINE TECHNIQUE: Contrast-enhanced CT of the lumbar spine with coronal and sagittal reformatted images. CLINICAL INFORMATION: concern for ongoign sepsis, MRSA bacteremia COMPARISON: None. DLP: 1692.[address] scans at [facility] use at least one of these dose optimization techniques: automat ed exposure control; mA and/or kV adjustment per patient size (includes targeted exams where dose is matched to clinical indication); or iterative reconstruction. FINDINGS: Mild lumbar curve. No acute compression. Disc space narrowing worse at L2-3 and L5-S1 with vacuum dis c phenomenon. No evidence of epidural abscess or discitis. No endplate erosion. No high-grade central canal stenosis. L1-L2: Normal. L2-L3: Mild annular bulging with slight effacement of ventral thecal sac. Mild right foraminal narrow ing. Spinal canal is patent. L3-L4: Mild annular bulging with slight effacement of ventral thecal sac. Mild bilateral foraminal na rrowing. Mild facet arthropathy. L4-L5: Mild disc bulging with slight narrowing of the right subarticular recess. Mild right greater t andrews left foraminal narrowing. Mild facet arthropathy. L5-S1: Disc osteophyte complex with endplate ridging. Central protrusion with slight effacement of ve ntral thecal sac. Moderate right and mild left bony foraminal narrowing. Mild facet arthropathy. Left adrenal adenoma. CT/CT lumbar spine w con [id number] IMPRESSION: 1. No evidence of discitis or epidural abscess. 2. No high-grade central canal stenosis. 3. Mild spondylitic changes described above.
--- NOTE | 2019-11-15 13:00 | MRR_ITS ---
PROCEDURE INFORMATION: Exam: MR Left Lower Extremity Joint Without and With Contrast, Knee Exam date and time: 11/15/2019 4:59 PM Age: 54 years old Clinical indication: Injury or trauma; Fall; Follow-up exam; Abrasion; Knee; Left; Injury date: October 26; Additional info: Repeat, concern for persistent sepsis. HX of blood clot, infection, fell off ladder TECHNIQUE: Imaging protocol: MR of the Left lower extremity joint without and with contrast. Exam focused on the knee. Contrast material: PROHANCE; Contrast volume: 17 ml; Contrast route: ARM; COMPARISON: MR knee LT wo/w con [id number] 11/10/2019 12:13 PM FINDINGS: Bones and cartilage: Knee effusion. Severe mottled appearance with abnormal signal and enhancement involving the bone of the distal femur diaphysis, metaphysis, and condyles. Thickened synovium of the knee joint with marked enhancement. There is increased enhancement surrounding the synovium of the knee joint and distal femur. Increased T2 signal posterior to the distal femur with peripheral enhancement is worrisome for a large abscess extending into the thigh. Slightly mottled appearance and enhancement in the patella. Subtle enhancement and increased T2 signal in the subchondral marrow of the tibial plateau without a mottled appearance. Joint spaces: No joint effusion. Medial meniscus: Unremarkable. No tear. Lateral meniscus: Unremarkable. No tear. Anterior cruciate ligament: Unremarkable. No tear. Posterior cruciate ligament: Unremarkable. No tear. Medial capsule and supporting structures: Unremarkable. No tear. Lateral capsule and supporting structures: Unremarkable. No tear. Extensor mechanism of knee: Unremarkable. No tear. Muscles: Diffuse myositis in the quadriceps muscles. Soft tissues: Diffuse subcutaneous soft tissue edema/cellulitis. Prepatellar skin defect. MR/MR knee LT wo/w con [id number] IMPRESSION: 1. Findings consistent with a septic left knee joint with an effusion and thick synovial enhancement. 2. Osteomyelitis involving the right femur and patella. 3. Marrow edema with possible mild osteomyelitis in the subchondral tibial plateau. 4. Suspected soft tissue abscess posterior to the femur which extends proximally into the thigh, beyond the field of view. 5. Diffuse subcutaneous soft tissue edema/cellulitis.
--- NOTE | 2019-11-15 13:00 | CT_ITS ---
WS: [id number] CT THORACIC SPINE TECHNIQUE: Contrast-enhanced CT of the thoracic spine with coronal and sagittal reformatted images. CLINICAL INFORMATION: concern for ongoign sepsis, MRSA bacteremia COMPARISON: None. DLP: 1043.[address] scans at [facility] use at least one of these dose optimization techniques: automat ed exposure control; mA and/or kV adjustment per patient size (includes targeted exams where dose is matched to clinical indication); or iterative reconstruction. FINDINGS: Normal thoracic alignment. No acute compression fractures. No high-grade central canal stenosis. Mild disc space narrowing in the lower thoracic spine with vacuum disc phenomenon. No evidence of epidura l or paravertebral abscess. No evidence of discitis. Partially visualized small bilateral pleural eff usions with bibasilar atelectasis. Left adrenal adenoma measuring 2.9 cm. Radiopaque foreign body fra gments projected over the right hemithorax. CT/CT thoracic spine w con [id number] IMPRESSION: 1. No evidence of epidural abscess or discitis. 2. Small bilateral pleural effusions with bibasilar compressive atelectasis.
--- NOTE | 2019-11-15 13:00 | CT_ITS ---
WS: [id number] CT CERVICAL CONTRAST TECHNIQUE: CT of the cervical spine coronal and sagittal reformatted images post contrast CLINICAL INFORMATION: concern for ongoign sepsis, MRSA bacteremia COMPARISON: None. DLP: 560.[address] scans at [facility] use at least one of these dose optimization techniques: automat ed exposure control; mA and/or kV adjustment per patient size (includes targeted exams where dose is matched to clinical indication); or iterative reconstruction. FINDINGS: Straightening of the normal cervical lordosis. Normal C1-C2 articulation. No evidence of epidural abs cess or discitis. No evidence of endplate erosion. No evidence of epidural abscess. Normal prevertebr al soft tissues. No abnormal enhancement. Mild cervical curve convex right. CT/CT cervical spine w con [id number] IMPRESSION: No evidence of discitis or epidural abscess.
--- NOTE | 2019-11-15 13:06 | P.PN_ITS ---
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 He denies headache, although since he was 38 he has been bothered by light. Denies neck stiffness. No back pain. Vitals/I&O/Wt Last Vital Signs Temp 99.0 F 11/15/19 11:00 Pulse 105 H 11/15/19 11:00 Resp 18 11/15/19 11:00 BP 144/80 11/15/19 11:00 Pulse Ox 93 11/15/19 11:00 11/14/19 11/15/19 11/15/19 22:59 06:59 14:59 Intake Total 360 / 410 500 / 910 120 / 120 Output Total 300 / 1000 340 / 1340 1100 / 1100 Balance 60 / -590 160 / -430 -980 / -980 Physical Exam Const: COMMON NORMALS: no acute distress and patient oriented x3 HENMT: COMMON NORMALS: oropharynx normal Neck/C-Spine: COMMON NORMALS: no JVD Resp: COMMON NORMALS: normal respiratory effort and clear to auscultation bilaterally AUSCULTATION: clear to auscultation bilaterally Cardio: COMMON NORMALS: no JVD, regular rhythm, S1 normal heart sound present, S2 normal heart sound present and No murmurs present (Cardio) RHYTHM: regular rhythm HEART SOUNDS: S1 normal heart sound present and S2 normal heart sound present GI: COMMON NORMALS: Normal to inspection, nondistended, normoactive bowel sounds present, Soft to palpation and non-tender PALPATION: Yes Soft to palpation Extremity: COMMON NORMALS: no joint enlargement GENERAL: Yes edema (1+ LLE) Neuro: COMMON NORMALS: patient oriented x3 and moves all extremities Skin: COMMON NORMALS: no rashes or lesions noted GENERAL SKIN EXAM: no rashes or lesions noted Data : 11/15/19 03:05 11/15/19 03:05 Micro: Microbiology 11/13/19 05:17 Blood Culture - Preliminary Blood Staphylococcus species 11/10/19 15:46 Anaerobic Culture - Preliminary Knee - #1 11/14/19 17:34 Blood Culture - Preliminary Blood SPECIMEN COLLECTED 11/14/19 17:23 Blood Culture - Preliminary Blood SPECIMEN COLLECTED 11/12/19 04:04 Blood Culture - Final Blood Methicillin Resis Staph Aureus 11/12/19 04:08 Blood Culture - Final Blood Methicillin Resis Staph Aureus 11/11/19 11:31 Blood Culture - Final Blood Methicillin Resis Staph Aureus 11/11/19 11:30 Blood Culture - Final Blood Methicillin Resis Staph Aureus 11/09/19 20:08 Blood Culture - Final Blood Methicillin Resis Staph Aureus 11/09/19 20:05 Blood Culture - Final Blood Methicillin Resis Staph Aureus 11/10/19 15:46 Gram Stain - Final Knee - Left Wound Culture - Final Methicillin Resis Staph Aureus A&P Assessment and plan (1) Sepsis: He appears to be afebrile, after requested not receiving Tylenol. Still, with persistent leukocytosis 26.6, sinus tachycardia 105, some of this may be secondary to osteomyelitis, with a recent septic arthritis, and a bscesses, still, however, cannot exclude ongoing sepsis, and I am concerned there may be additional focus of infection. In addition he still has persistent bacteremia, with culture still come back pos itive on 08/15, although now 2/4 bottles. 08/16 cultures still negative. Requested repeat from periphery and PICC line. At this time as discussed with patient will conduct additional investigation in cluding contrast CT of his entire spine, MRI of his head, will also assess MRI of the left knee per discussion with orthopedics. At this time continue vancomycin at the increased dosing. Status: Acute (2) Bacteremia: 2/4 bottles positive from 11/12. So far 11/13 cultures negative. Requested repeat cultures today. MRSA bacteremia. Acutely vancomycin trough is low. Vancomycin dose appears is not sufficient for him due to his renal function. Yesterday dose was increased to twice daily. Stroke will need to be repeated afternoon dosing. For a once daily dosing daptomycin IV 6-10 mg/kg once daily may need to be considered for over 6 weeks total therapy. Status: Acute (3) DVT (deep venous thrombosis): Eliquis Status: Acute Qualifiers: Affected thrombotic vein of extremity: popliteal Chronicity: acute DVT location: lower extremity Laterality: left Qualified Code(s): I82.432 - Acute embolism and thrombosis of left popliteal vein (4) Abnormal finding on imaging: Intra-and periarticular abscess and osteomyelitis of the left knee, distal femur, proximal tibia. S/p drainage. Unless there is need for additional intervention identified by additional MRI imaging, he would be discharging with the current dressing in place per orthopedics until follow up in clinic. Status: Acute (5) Leukocytosis: Secondary to abscess, osteomyelitis Status: Acute Qualifiers: Leukocytosis type: unspecified Qualified Code(s): D72.829 - Elevated white blood cell count, unspecified Additional A&P Information Prostate abscess late August requiring surgery and prolonged antibiotics, given orally as an outpatient Hypokalemia, supplement History of GERD, proton pump inhibitor Full code Heparin for DVT prophylaxis Attestations Medical Necessity Statement*: Continue admission for assessment for suspected persistent sepsis. Coding Level of Care Code Acute Impregnator Electrolytic Capacitors for g Fwd Exam Comprehensive Diagnoses Sepsis A41.9 Bacteremia R78.81 DVT (deep venous thrombosis) I82.432 Affected thrombotic vein of extremity: popliteal Chronicity: acute DVT location: lower extremity Laterality: left Abnormal finding on imaging R93.89 Leukocytosis D72.829 Leukocytosis type: unspecified
[2019-11-15] MEDS: iohexol 300 mg/mL 100 mL Btl IV ×3 (15:09→15:11)
[2019-11-15 17:59] VITALS: RESP 17; O2SAT 98
[2019-11-15 19:29] VITALS: BP 139/77; PULSE 111; RESP 20; TEMP 36.7; O2SAT 93
[2019-11-16] VITALS (8 sets, daily range): BP systolic 142–159; BP diastolic 80–90; PULSE 84–114; RESP 18–22; TEMP 36.8–37.7; O2SAT 91–96
[2019-11-16] MEDS: vancomycin 1,000 MG in sodium chloride 0.9% 250 ML 250 MG IV ×2 (00:59→13:58)
[2019-11-16] MEDS: piperacillin-tazobactam 3.375 GM in sodium chloride 0.9% (plus) 50 ML IV ×2 (04:24→12:15)
[2019-11-16 05:33] LABS: Basophils # 0.1 10^3/uL (0.0-0.1); Basophils % 0.4 %; Eosinophils # 0.1 10^3/uL (0.0-0.8); Eosinophils % 0.3 %; Hematocrit 21.2 % (42.0-52.0); Hemoglobin 7.2 g/dL (11.7-16.6); Lymphocytes # 1.3 10^3/uL (0.8-4.8); Lymphocytes % 5.9 %; Mean Corpuscular Hemoglobin 30.4 pg (28.0-34.0); Mean Corpuscular Volume 89.5 fL (80-94); Mean Platelet Volume 9.3 fL (7.4-10.4); Monocytes # 1.1 10^3/uL (0.2-0.9); Monocytes % 4.7 %; Neutrophils # 19.6 10^3/uL (1.8-7.7); Nucleated Red Blood Cells % 0 %; Platelet Count 759 10^3/cmm (130-400); Red Blood Count 2.37 10^6/uL (4.1-5.3); Red Cell Distribution Width 15.4 % (12.1-15.1); White Blood Count 22.5 10^3/uL (4.0-10.0)
[2019-11-16 05:49] LABS: Alanine Aminotransferase 26 U/L (0-41); Albumin Level 2.2 g/dL (3.5-5.2); Alkaline Phosphatase 121 IU/L (40-130); Anion Gap 13.1 (5-19); Aspartate Amino Transferase 29 U/L (0-40); Blood Urea Nitrogen 11 mg/dL (6-20); Calcium 8.1 mg/dL (8.5-10.5); Carbon Dioxide 24 mmol/L (22-29); Chloride 89 mmol/L (98-107); Creatinine Clr Calc Pharmacy 120.5104; Globulin 3.2 g/dL (1.3-4.6); Glomerular Filtration Rate 139.4 mL/min (90-130); Glucose 111 mg/dL (65-115); Osmolality Calculated 253 mOsm/kg (285-295); Potassium 3.1 mmol/L (3.5-5.1); Sodium 123 mmol/L (136-145); Total Bilirubin 0.3 mg/dL (0.15-1.2); Total Protein 5.4 g/dL (6.6-8.7)
[2019-11-16] MEDS: oxyCODONE 5 mg IR Tab/Cap PO (09:15)
[2019-11-16] MEDS: pantoprazole DR 40 mg Tablet PO ×2 (09:16→17:55)
[2019-11-16] MEDS: apixaban 5 mg Tablet 10 MG PO ×2 (09:19→17:54)
--- NOTE | 2019-11-16 10:15 | MR_ITS ---
WS: [id number] MRI HEAD WITH CONTRAST TECHNIQUE: Sagittal T1, T2 axial, T2 axial FLAIR, axial susceptibility weighted imaging, axial diffus ion weighted images, and coronal T2 images were obtained. Pre and post-T1 axial and post T1 coronal i mages. ADC and FSPGR images. CLINICAL INFORMATION: MRSA bacteremia, sepsis, chronic photosensitivity COMPARISON: None. FINDINGS: Fluid/fluid level with restricted dependent debris within the occipital horns bilaterally. Small amou nt of associated T2 signal abnormality about the occipital horns posteriorly. No significant hydrocep halus. Tiny suggestion of ependymal enhancement about the occipital horns. No intraparenchymal enhanc ement. Findings are suspicious for ventriculitis with intraventricular debris/abscess. Isolated subac [place] intraventricular blood products is an additional less likely consideration. No acute ischemia. Normal optic chiasm and pituitary infundibulum. Moderate supratentorial white mina er changes can be seen with hypertension, diabetes, small vessel disease or migraine headaches. Mild parenchymal volume loss. Normal fourth ventricle. Mild mucosal thickening in the right mastoid air ce lls. No other significant findings. Notified James Lazar MD at 11/16/2019 11:11 AM. MR/MR head wo/w con [id number] IMPRESSION: 1. Debris with restricted diffusion in the occipital horns bilaterally suspici ous for pyogenic ventriculitis. 2. Small amount of T2 signal abnormality about the occipital horns. Minimal if any associated ependymal enhancement. No leptomeningeal enhancement. 3. No significant hydrocephalus. Ventricular size is normal. 4. Moderate supratentorial white matter changes can be seen with hypertension, diabetes, small vessel disease, and migraine headaches. 5. Ventricular size can be followed up with CT.
[2019-11-16 10:47] LABS: Urine Random Sodium 96 mmol/L
--- NOTE | 2019-11-16 14:06 | PC.OT ---
Hold OT today 11/16/19, secondary to today's labs showing patient having hemoglobin and hematocrit values that are contraindicated for therapy. Nursing informed.
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
--- NOTE | 2019-11-16 16:29 | P.MISC_ITS ---
Miscellaneous Note Purpose of Documentation: Documentation for transfer Note: Discussion was undertaken with the hospitalist service this morning. Subsequently, I reviewed this case with my associate who agrees with the plan of transfer to a higher level facility. Upon repeat MRI of the knee, the patient had reaccumulated significant effusion about the knee. This appeared to be purulent once again. There is significant destruction of the distal femur consistent with osteomyelitis. Additionally, the patient has had an abnormal brain MRI and prostate issues. Even the fact that he was irrigated and debrided twice here at this hospital and has reaccumulated fluid and abscess in the area of previously debrided, plans were made for a limb preservation consultation and transfer of treatment. This will be accomplished at [place].
[2019-11-17 14:26] LABS: Osmolality Urine 353 mOsm/kg (50-1200)
--- NOTE | 2019-11-22 12:50 | PC.SOCIAL ---
Spoke with Hayde resendiz am from [facility]. She indicates she did not receive the records requested last week. This nurse verified the fax number on the release of information request and she indicates that is the home office and since it went there will take a long time to process. This nurse asked is she could reach out to the home office and she indicates that is difficult since the COVID there are less staff and they cover many [place]. This nurse finally agreed to send the information again for the last two admissions and the follow up appointment with Dr Gil. Information sent to her fax that was requested and received confirmation that all was sent successfully.
== END 2019-11-16 19:18 | disposition short-term general hospital (02) | DRG 477 ==
LOC: ER 18:59 → MEDSURG 22:29
PROVIDERS: Internal Medicine; Internal Medicine Cardiovascular Disease; Orthopaedic Surgery; Physician Assistant; Admitting Provider Internal Medicine; Emergency Provider Nurse Practitioner Family; PCP Nurse Practitioner; Visit Provider Internal Medicine
PROC: 0QBC0ZX Excision of Left Lower Femur, Open Approach, Diagnostic (ICD-10-PCS; principal; 2019-11-10 14:30)
PROC: B24BZZ4 Ultrasonography of Heart with Aorta, Transesophageal (ICD-10-PCS; CPT 93312; principal; 2019-11-14 08:00)
DX: M86.152 Other acute osteomyelitis, left femur (principal); G04.90 Encephalitis and encephalomyelitis, unspecified; I82.432 Acute embolism and thrombosis of left popliteal vein; M00.062 Staphylococcal arthritis, left knee; D62 Acute posthemorrhagic anemia; A86 Unspecified viral encephalitis; Z91.81 History of falling; Z87.442 Personal history of urinary calculi; N40.0 Benign prostatic hyperplasia without lower urinary tract symptoms; F17.210 Nicotine dependence, cigarettes, uncomplicated; M25.462 Effusion, left knee; E87.6 Hypokalemia; B95.62 Methicillin resistant Staphylococcus aureus infection as the cause of diseases classified elsewhere; K21.9 Gastro-esophageal reflux disease without esophagitis; Z86.19 Personal history of other infectious and parasitic diseases; I34.0 Nonrheumatic mitral (valve) insufficiency
CPT/HCPCS: 12345; 20610; 36415; 36416; 36569; 36592; 70030; 70553; 71045; 72126; 72129; 72132; 73552; 73562; 73700; 73723; 80048; 80053; 80202; 80500; 81001; 82962; 82977; 83735; 83935; 84100; 84145; 84300; 85025; 85610; 85651; 85730; 86140; 86850; 86900; 87040; 87070; 87075; 87077; 87176; 87186; 87205; 88112; 88304; 88305; 89050; 93005; 93306; 93312; 93320; 93325; 93971; 96372; 96375; 97110; 97116; 97161; 97165; 97530; 97535; 99283; A9579; J0330; J1170; J1580; J1644; J1650; J1885; J2001; J2270; J2370; J2405; J2543; J2704; J3010; J3370; J3480; J3490; J7030; J7050; Q9967

== ENCOUNTER 2020-02-27 09:17 | Outpatient (CLI) | payer MEDICAID, SELFPAY ==
--- NOTE | 2020-02-27 10:49 | MR_ITS ---
WS: [id number] MRI RIGHT KNEE NONCONTRAST AND CONTRAST TECHNIQUE: Axial PD, coronal PD fat sat, coronal PD, sagittal PD, and sagittal PD fat-sat images obta ined. Post gadolinium images obtained CLINICAL INFORMATION: OSTEO OF LEFT FEMUR COMPARISON: MRI November 15, 2019 FINDINGS: Again seen are diffuse heterogeneous bone marrow signal throughout the visualized femur consistent wi th osteomyelitis. Evidence of interval surgical changes with intramedullary surgical defect in the di stal femur extending to the intercondylar notch. Partially visualized antibiotic beads within the miguel gical defect. Persistent diffuse soft tissue edema and cellulitis with diffuse synovial enhancement consistent with synovitis. Previously described suprapatellar septic effusion has been drained or resolved since in the interval. Diffusely thickened suprapatellar soft tissues. No drainable fluid collections. Small j oint effusion. Additional evidence of osteomyelitis involving the patella unchanged. Previously described soft tissu e abscess in the posterior thigh appears to have been drained in the interval. Diffuse edema in Hoffa 's fat pad. ACL and PCL appear intact. Distal quadriceps and patella tendons appear intact. Chronic thinning of t he medial and lateral meniscus.. Blunting of the posterior horn medial meniscus with horizontal tear extending to the articular surface. This is unchanged from previous. Tiny amount of edema in the late ral tibial plateau. No evidence of osteomyelitis involving the tibia. MR/MR knee LT wo/w con [id number] IMPRESSION: 1. Again seen is osteomyelitis involving the distal femur and patella. 2. Postoperative changes are new since the prior examination involving the int ramedullary tibial diaphysis extending to the intercondylar notch with antibiot ic beads. 3. Interval drainage of the previously described dorsal distal femur abscess. No drainable fluid collections today. 4. Diffuse cellulitis with soft tissue edema and synovitis involving the supra patellar bursa and joint capsule. Small joint effusion. 5. No evidence of osteomyelitis involving the tibial plateau. 6. No other significant interval changes.
== END 2020-02-27 09:18 | disposition home or self-care (01) ==
LOC: RADWPI 09:21
PROVIDERS: PCP Nurse Practitioner; Visit Provider Nurse Practitioner Family
DX: M86.8X5 Other osteomyelitis, thigh (principal); R60.0 Localized edema; M25.462 Effusion, left knee; M65.9 Synovitis and tenosynovitis, unspecified
CPT/HCPCS: 73723; A9579

== ENCOUNTER 2022-01-31 13:31 | Emergency (ER) | payer MEDICAID, SELFPAY ==
[2022-01-31 13:46] VITALS: BP 136/79; PULSE 116; RESP 16; TEMP 37; O2SAT 97
--- NOTE | 2022-01-31 14:13 | USR_ITS ---
PROCEDURE INFORMATION: Exam: US Duplex Left Lower Extremity Veins, Limited Exam date and time: 01/31/2022 2:25 PM Age: 56 years old Clinical indication: Pain; Leg, lower; Left; Prior surgery; Surgery date: 6+ months; Additional info: Lle swelling TECHNIQUE: Imaging protocol: Real-time Duplex ultrasound of the Left Lower Extremity with 2-D suazo scale, color Doppler flow and spectral waveform analysis with image documentation. Limited exam focused on the left lower extremity veins. COMPARISON: CT knee LT wo con* [id number] 11/09/2019 5:45 PM FINDINGS: Left deep veins: Unremarkable. The common femoral, femoral, proximal profunda femoral and popliteal veins are patent without thrombus. Normal Doppler waveforms. Normal compressibility and/or augmentation response. Left superficial veins: Unremarkable. Saphenofemoral junction is patent without thrombus. Soft tissues: Within the area of interest at the left knee there is focal complex fluid which measures 7.8 x 3.5 x 9.6 cm. US/[place] [id number] IMPRESSION: 1. No evidence of deep vein thrombosis. 2. Within the area of interest at the left knee there is focal complex fluid which measures 7.8 x 3.5 x 9.6 cm.
--- NOTE | 2022-01-31 14:40 | XRR_ITS ---
PROCEDURE INFORMATION: Exam: XR Left Knee Exam date and time: 01/31/2022 3:38 PM Age: 56 years old Clinical indication: Pain; Knee; Left; Additional info: Pain, swelling, HX osteo TECHNIQUE: Imaging protocol: Radiologic exam of the Left knee. Views: 3 views. COMPARISON: MR knee LT wo/w con [id number] 02/27/2020 10:47 AM FINDINGS: Bones/joints: Mixed lucent and sclerotic changes of the knee both within the distal femur and proximal tibia. No acute erosive changes seen. Negative for fracture. [id number] joint space narrowing centered at the medial compartment. Soft tissues: Normal. XR/XR knee LT 3V* [id number] IMPRESSION: Mixed lucent add sclerotic changes of the knee suggestive of chronic osteomyelitis. No radiographic sequela of acute osteomyelitis.
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
[2022-01-31 16:09] LABS: Basophils # 0.1 10^3/uL (0.0-0.1); Basophils % 0.6 %; Eosinophils # 0.1 10^3/uL (0.0-0.8); Eosinophils % 0.4 %; Hematocrit 39.3 % (42.0-52.0); Hemoglobin 12.9 g/dL (11.7-16.6); Lymphocytes # 1.5 10^3/uL (0.8-4.8); Lymphocytes % 6.6 %; Mean Corpuscular HGB Conc 32.8 g/dL (30.0-36.0); Mean Corpuscular Hemoglobin 29.8 pg (28.0-34.0); Mean Corpuscular Volume 90.8 fl (80-94); Mean Platelet Volume 8.4 fL (7.4-10.4); Monocytes # 1.2 10^3/uL (0.2-0.9); Monocytes % 5.1 %; Neutrophils # 19.73 10^3/uL (1.8-7.7); Neutrophils % 86.3 %; Nucleated Red Blood Cells % 0 %; Platelet Count 758 10^3/cmm (130-400); Red Blood Count 4.33 10^6/uL (4.1-5.3); Red Cell Distribution Width 13.5 % (12.1-15.1); White Blood Count 22.9 10^3/uL (4.0-10.0)
[2022-01-31 16:28] LABS: Lactic Sepsis W/Reflex 1.3 mmol/L (0.5-2.2)
[2022-01-31 16:32] LABS: Alanine Aminotransferase 17 U/L (0-41); Albumin Level 3.7 g/dL (3.5-5.2); Alkaline Phosphatase 144 IU/L (40-130); Anion Gap 19.3 (5-19); Aspartate Amino Transferase 12 U/L (0-40); Blood Urea Nitrogen 16 mg/dL (6-20); C Reactive Protein 179.5 mg/L (0.0-4.9); Calcium 9.8 mg/dL (8.5-10.5); Carbon Dioxide 27 mmol/L (22-29); Chloride 101 mmol/L (98-107); Globulin 4.4 g/dL (1.3-4.6); Glomerular Filtration Rate 86.7 mL/min (90-130); Glucose 87 mg/dL (65-115); Osmolality Calculated 297 mOsm/kg (285-295); Potassium 4.3 mmol/L (3.5-5.1); Sodium 143 mmol/L (136-145); Total Bilirubin 0.2 mg/dL (0.15-1.2); Total Protein 8.1 g/dL (6.6-8.7)
--- NOTE | 2022-01-31 16:50 | CTR_ITS ---
PROCEDURE INFORMATION: Exam: CT Left Lower Extremity With Contrast; Thigh Exam date and time: 01/31/2022 5:05 PM Age: 56 years old Clinical indication: Pain; Knee and thigh; Left; Prior surgery; Surgery date: 6+ months; Surgery type: MRSA, infection; Additional info: Swelling to femur/thigh/knee, previous septic joint; Large fluid collection noted on US; TECHNIQUE: Imaging protocol: CT of the Left lower extremity with intravenous contrast was performed. Exam focused on the thigh. Radiation optimization: All CT scans at this facility use at least one of these dose optimization techniques: automated exposure control; mA and/or kV adjustment per patient size (includes targeted exams where dose is matched to clinical indication); or iterative reconstruction. Contrast material: OMNI 350; Contrast volume: 80 ml; Contrast route: INTRAVENOUS (IV); COMPARISON: CT femur LT wo con* [id number] 11/09/2019 5:41 PM RADIATION DOSE METRICS: Total DLP (mGy-cm): 588.87 FINDINGS: Bones/joints: Diffusely mixed lytic and sclerotic appearance throughout the left femur and within the proximal aspect of tibia and patella. Additional areas of well circumcised intramedullary lucency within the mid and distal femur with narrow channel of cortical erosion and communication with the fluid collection surrounding the knee consistent with Jim's abscess and cloaca. Additional well corticated lucency and narrow channel of cortical erosion also seen within the medial aspect of the tibial plateau again consistent with Jim's abscess and cloaca formation. Soft tissues: Rim enhancing fluid collection surrounding the mid and distal femur measuring 6.4 x 8.[address]/CT femur LT w con [id number] IMPRESSION: Sequela of chronic osteomyelitis throughout the femur, patella, and proximal aspect of the tibia. This includes a large intramedullary Jim's abscess within the mid and distal femur and medial tibial plateau, with corresponding cloaca, and abscess formation surrounding the mid and distal femur measuring approximately 6.4 x 8.6 x 14.0 cm.
[2022-01-31 17:07] LABS: Erythrocyte Sedimentation Rate 91 mm/hr (0-10)
[2022-01-31 17:23] VITALS: RESP 15; O2SAT 94
[2022-01-31] MEDS: ondansetron 2 mg/ML SDV 2 mL 4 MG IVP (17:23)
[2022-01-31] MEDS: morphine 4 mg/mL SDV 1 mL IVP (17:23)
[2022-01-31 17:30] VITALS: BP 125/78; PULSE 102; RESP 16; O2SAT 96
[2022-01-31 18:00] VITALS: BP 108/65; PULSE 99; RESP 16; O2SAT 96
[2022-01-31] MEDS: iohexol 350 mg/mL 100 mL Btl IV (18:04)
[2022-01-31 20:30] VITALS: BP 134/79; PULSE 96; RESP 18; O2SAT 96
[2022-01-31] MEDS: acetaminophen 500 mg Tablet 1000 MG PO (21:32)
[2022-01-31] MEDS: ketorolac 30 mg/mL INJ 15 MG IVP (21:33)
[2022-01-31] MEDS: HYDROmorphone 1 mg/mL INJ 1 mL IVP (21:34)
[2022-01-31] MEDS: piperacillin-tazobactam 4.5 GM in sodium chloride 0.9% (plus) 50 ML IV (21:39)
[2022-01-31] MEDS: vancomycin 1,500 MG/300 ML PIGGYBACK 150 MG IV (22:30)
[2022-01-31 22:44] LABS: SARS Covid-2 Antigen Negative (Negative)
== END 2022-01-31 22:53 ==
PROVIDERS: Physician Assistant; Emergency Provider Emergency Medicine
DX: A41.9 Sepsis, unspecified organism (principal); M00.862 Arthritis due to other bacteria, left knee; L02.416 Cutaneous abscess of left lower limb; M86.68 Other chronic osteomyelitis, other site; F17.210 Nicotine dependence, cigarettes, uncomplicated; Z20.822 Contact with and (suspected) exposure to COVID-19
CPT/HCPCS: 36415; 73562; 73701; 80053; 83605; 85025; 85651; 86140; 87040; 87426; 93971; 96365; 96375; 99285; J1170; J1885; J2270; J2405; J2543; J3370; Q9967

== ENCOUNTER 2022-02-25 10:50 | Outpatient (RCR) | payer MEDICAID, SELFPAY ==
[2022-02-25 11:12] LABS: Basophils # 0.1 10^3/uL (0.0-0.1); Basophils % 1.3 %; Eosinophils # 0.1 10^3/uL (0.0-0.8); Eosinophils % 1.7 %; Hematocrit 29.1 % (42.0-52.0); Hemoglobin 9.3 g/dL (11.7-16.6); Lymphocytes # 1.7 10^3/uL (0.8-4.8); Mean Corpuscular Hemoglobin 29.3 pg (28.0-34.0); Mean Corpuscular Volume 91.8 fl (80-94); Mean Platelet Volume 9.2 fL (7.4-10.4); Monocytes # 0.8 10^3/uL (0.2-0.9); Monocytes % 9.8 %; Neutrophils % 66.5 %; Nucleated Red Blood Cells % 0 %; Platelet Count 463 10^3/cmm (130-400); Red Blood Count 3.17 10^6/uL (4.1-5.3); Red Cell Distribution Width 14.9 % (12.1-15.1); White Blood Count 8.4 10^3/uL (4.0-10.0)
[2022-02-25 11:40] LABS: Alanine Aminotransferase 19 U/L (0-41); Albumin Level 3.7 g/dL (3.5-5.2); Alkaline Phosphatase 97 U/L (40-130); Aspartate Amino Transferase 15 U/L (0-40); Blood Urea Nitrogen 26 mg/dL (6-20); C Reactive Protein 10.3 mg/L (0.0-4.9); Calcium 9.8 mg/dL (8.5-10.5); Carbon Dioxide 25 mmol/L (22-29); Chloride 98 mmol/L (98-107); Globulin 3.4 g/dL (1.3-4.6); Glomerular Filtration Rate 99.3 mL/min (90-130); Glucose 111 mg/dL (65-115); Osmolality Calculated 283 mOsm/kg (285-295); Sodium 134 mmol/L (136-145); Total Bilirubin 0.2 mg/dL (0.15-1.2); Total Protein 7.1 g/dL (6.6-8.7)
[2022-02-25 11:54] LABS: Vancomycin Trough 14.9 ug/mL (10-15)
== END 2022-02-25 23:59 | disposition home or self-care (01) ==
LOC: LAB 10:50
PROVIDERS: Visit Provider Hospitalist
DX: M86.9 Osteomyelitis, unspecified (principal)
CPT/HCPCS: 80053; 80202; 85025; 86140

== ENCOUNTER 2022-03-25 10:41 | Outpatient (CLI) | payer MEDICAID, SELFPAY | END 2022-03-25 10:42 | disposition home or self-care (01) | LOC: LAB 10:42 | PROVIDERS: Visit Provider Hospitalist | DX: M86.9 Osteomyelitis, unspecified (principal) | CPT/HCPCS: 80202 ==

== ENCOUNTER 2022-03-27 10:19 | Outpatient (RCR) | payer MEDICAID, SELFPAY ==
[2022-03-03 11:08] LABS: Basophils # 0.1 10^3/uL (0.0-0.1); Eosinophils # 0.3 10^3/uL (0.0-0.8); Mean Corpuscular Hemoglobin 30.1 pg (28.0-34.0); Neutrophils # 5.02 10^3/uL (1.8-7.7); Nucleated Red Blood Cells % 0 %
[2022-03-03 11:23] LABS: Vancomycin Trough 14.6 ug/mL (10-15)
[2022-03-03 11:36] LABS: Basophils % 1.6 %; Eosinophils % 3.7 %; Hematocrit 32.8 % (42.0-52.0); Hemoglobin 10.5 g/dL (11.7-16.6); Lymphocytes # 1.9 10^3/uL (0.8-4.8); Lymphocytes % 23.2 %; Mean Platelet Volume 9.7 fL (7.4-10.4); Monocytes # 0.8 10^3/uL (0.2-0.9); Monocytes % 9.3 %; Neutrophils % 61.7 %; Platelet Count 464 10^3/cmm (130-400); Red Blood Count 3.49 10^6/uL (4.1-5.3); White Blood Count 8.1 10^3/uL (4.0-10.0)
[2022-03-03 11:57] LABS: C Reactive Protein 3.6 mg/L (0.0-4.9)
[2022-03-03 17:37] LABS: Alanine Aminotransferase 12 U/L (0-41); Alkaline Phosphatase 104 U/L (40-130); Anion Gap 18.1 (5-19); Aspartate Amino Transferase 13 U/L (0-40); Blood Urea Nitrogen 17 mg/dL (6-20); Calcium 9.2 mg/dL (8.5-10.5); Carbon Dioxide 22 mmol/L (22-29); Chloride 103 mmol/L (98-107); Globulin 3.1 g/dL (1.3-4.6); Glucose 114 mg/dL (65-115); Osmolality Calculated 290 mOsm/kg (285-295); Potassium 4.1 mmol/L (3.5-5.1); Sodium 139 mmol/L (136-145); Total Bilirubin 0.2 mg/dL (0.15-1.2); Total Protein 7.1 g/dL (6.6-8.7)
[2022-03-03 17:41] LABS: Glomerular Filtration Rate 99.3 mL/min (90-130)
[2022-03-09 11:01] LABS: Basophils # 0.1 10^3/uL (0.0-0.1); Basophils % 1.8 %; Eosinophils # 0.4 10^3/uL (0.0-0.8); Eosinophils % 4.6 %; Hematocrit 36.9 % (42.0-52.0); Hemoglobin 11.6 g/dL (11.7-16.6); Lymphocytes # 1.9 10^3/uL (0.8-4.8); Lymphocytes % 25.1 %; Mean Corpuscular HGB Conc 31.4 g/dL (30.0-36.0); Mean Corpuscular Hemoglobin 30.2 pg (28.0-34.0); Mean Corpuscular Volume 96.1 fl (80-94); Mean Platelet Volume 9.3 fL (7.4-10.4); Monocytes # 0.6 10^3/uL (0.2-0.9); Monocytes % 8.4 %; Neutrophils # 4.53 10^3/uL (1.8-7.7); Neutrophils % 59.6 %; Nucleated Red Blood Cells % 0 %; Platelet Count 370 10^3/cmm (130-400); Red Blood Count 3.84 10^6/uL (4.1-5.3); White Blood Count 7.6 10^3/uL (4.0-10.0)
[2022-03-09 11:49] LABS: Alanine Aminotransferase 22 U/L (0-41); Albumin Level 3.9 g/dL (3.5-5.2); Alkaline Phosphatase 111 U/L (40-130); Anion Gap 14.6 (5-19); Aspartate Amino Transferase 17 U/L (0-40); Blood Urea Nitrogen 17 mg/dL (6-20); C Reactive Protein 3.1 mg/L (0.0-4.9); Calcium 8.9 mg/dL (8.5-10.5); Carbon Dioxide 23 mmol/L (22-29); Chloride 106 mmol/L (98-107); Globulin 3.3 g/dL (1.3-4.6); Glomerular Filtration Rate 99.3 mL/min (90-130); Glucose 88 mg/dL (65-115); Osmolality Calculated 289 mOsm/kg (285-295); Potassium 4.6 mmol/L (3.5-5.1); Sodium 139 mmol/L (136-145); Total Bilirubin 0.2 mg/dL (0.15-1.2); Total Protein 7.2 g/dL (6.6-8.7)
[2022-03-09 11:50] LABS: Vancomycin Trough 13.5 ug/mL (10-15)
[2022-03-16 10:48] LABS: Basophils # 0.1 10^3/uL (0.0-0.1); Basophils % 1.7 %; Eosinophils # 0.3 10^3/uL (0.0-0.8); Eosinophils % 4.4 %; Hematocrit 36.9 % (42.0-52.0); Lymphocytes # 1.4 10^3/uL (0.8-4.8); Lymphocytes % 21.1 %; Mean Corpuscular HGB Conc 32.5 g/dL (30.0-36.0); Mean Corpuscular Hemoglobin 30.7 pg (28.0-34.0); Mean Corpuscular Volume 94.4 fl (80-94); Mean Platelet Volume 9.8 fL (7.4-10.4); Monocytes # 0.5 10^3/uL (0.2-0.9); Neutrophils # 4.23 10^3/uL (1.8-7.7); Neutrophils % 64.6 %; Nucleated Red Blood Cells % 0 %; Platelet Count 324 10^3/cmm (130-400); Red Blood Count 3.91 10^6/uL (4.1-5.3); White Blood Count 6.5 10^3/uL (4.0-10.0)
[2022-03-16 11:25] LABS: Alanine Aminotransferase 20 U/L (0-41); Albumin Level 3.9 g/dL (3.5-5.2); Alkaline Phosphatase 100 U/L (40-130); Blood Urea Nitrogen 18 mg/dL (6-20); Calcium 9.3 mg/dL (8.5-10.5); Carbon Dioxide 23 mmol/L (22-29); Chloride 103 mmol/L (98-107); Globulin 3.4 g/dL (1.3-4.6); Glomerular Filtration Rate 99.3 mL/min (90-130); Glucose 91 mg/dL (65-115); Osmolality Calculated 287 mOsm/kg (285-295); Sodium 138 mmol/L (136-145); Total Bilirubin 0.2 mg/dL (0.15-1.2); Total Protein 7.3 g/dL (6.6-8.7)
[2022-03-16 11:26] LABS: Vancomycin Trough 15.4 ug/mL (10-15)
[2022-03-16 11:51] LABS: Anion Gap 16.6 (5-19); Aspartate Amino Transferase 22 U/L (0-40); Potassium 4.6 mmol/L (3.5-5.1)
[2022-03-23 10:26] LABS: Basophils # 0.1 10^3/uL (0.0-0.1); Basophils % 1.1 %; Eosinophils # 0.5 10^3/uL (0.0-0.8); Eosinophils % 6.3 %; Hematocrit 39.4 % (42.0-52.0); Hemoglobin 12.6 g/dL (11.7-16.6); Lymphocytes # 1.6 10^3/uL (0.8-4.8); Lymphocytes % 21.9 %; Mean Corpuscular Hemoglobin 30.5 pg (28.0-34.0); Mean Corpuscular Volume 95.4 fl (80-94); Mean Platelet Volume 9.8 fL (7.4-10.4); Monocytes # 0.7 10^3/uL (0.2-0.9); Monocytes % 9.3 %; Neutrophils # 4.37 10^3/uL (1.8-7.7); Nucleated Red Blood Cells % 0 %; Platelet Count 325 10^3/cmm (130-400); Red Blood Count 4.13 10^6/uL (4.1-5.3); Red Cell Distribution Width 15.9 % (12.1-15.1); White Blood Count 7.2 10^3/uL (4.0-10.0)
[2022-03-23 10:46] LABS: Alanine Aminotransferase 28 U/L (0-41); Albumin Level 4.1 g/dL (3.5-5.2); Alkaline Phosphatase 113 U/L (40-130); Anion Gap 13.3 (5-19); Aspartate Amino Transferase 19 U/L (0-40); Blood Urea Nitrogen 17 mg/dL (6-20); C Reactive Protein 4.4 mg/L (0.0-4.9); Calcium 9.1 mg/dL (8.5-10.5); Carbon Dioxide 24 mmol/L (22-29); Chloride 106 mmol/L (98-107); Globulin 2.9 g/dL (1.3-4.6); Glomerular Filtration Rate 99.3 mL/min (90-130); Glucose 93 mg/dL (65-115); Osmolality Calculated 289 mOsm/kg (285-295); Potassium 4.3 mmol/L (3.5-5.1); Sodium 139 mmol/L (136-145); Total Bilirubin 0.2 mg/dL (0.15-1.2)
[2022-03-23 11:17] LABS: Vancomycin Trough 12.8 ug/mL (10-15)
[2022-03-27 10:57] LABS: Basophils # 0.1 10^3/uL (0.0-0.1); Basophils % 1.4 %; Eosinophils # 0.5 10^3/uL (0.0-0.8); Eosinophils % 6.5 %; Hematocrit 41.5 % (42.0-52.0); Hemoglobin 13.6 g/dL (11.7-16.6); Lymphocytes # 1.8 10^3/uL (0.8-4.8); Lymphocytes % 25.9 %; Mean Corpuscular HGB Conc 32.8 g/dL (30.0-36.0); Mean Corpuscular Hemoglobin 30.6 pg (28.0-34.0); Mean Corpuscular Volume 93.5 fl (80-94); Mean Platelet Volume 9.4 fL (7.4-10.4); Monocytes # 0.5 10^3/uL (0.2-0.9); Monocytes % 7.5 %; Neutrophils # 4.03 10^3/uL (1.8-7.7); Neutrophils % 58.4 %; Nucleated Red Blood Cells % 0 %; Platelet Count 340 10^3/cmm (130-400); Red Blood Count 4.44 10^6/uL (4.1-5.3); Red Cell Distribution Width 15.7 % (12.1-15.1); White Blood Count 6.9 10^3/uL (4.0-10.0)
[2022-03-27 11:16] LABS: Alanine Aminotransferase 29 U/L (0-41); Albumin Level 4.2 g/dL (3.5-5.2); Alkaline Phosphatase 97 U/L (40-130); Anion Gap 11.9 (5-19); Aspartate Amino Transferase 17 U/L (0-40); Blood Urea Nitrogen 12 mg/dL (6-20); C Reactive Protein 3.8 mg/L (0.0-4.9); Calcium 9.4 mg/dL (8.5-10.5); Carbon Dioxide 25 mmol/L (22-29); Chloride 102 mmol/L (98-107); Glomerular Filtration Rate 99.3 mL/min (90-130); Glucose 101 mg/dL (65-115); Osmolality Calculated 280 mOsm/kg (285-295); Potassium 3.9 mmol/L (3.5-5.1); Sodium 135 mmol/L (136-145); Total Bilirubin 0.2 mg/dL (0.15-1.2); Total Protein 7.2 g/dL (6.6-8.7)
[2022-03-27 11:51] LABS: Vancomycin Trough 19.9 ug/mL (10-15)
== END 2022-03-27 23:59 | disposition home or self-care (01) ==
LOC: LAB 10:19
PROVIDERS: Visit Provider Hospitalist
DX: M86.9 Osteomyelitis, unspecified (principal); Z79.899 Other long term (current) drug therapy
CPT/HCPCS: 36415; 80053; 80202; 85025; 86140

== ENCOUNTER 2022-03-30 10:04 | Outpatient (RCR) | payer MEDICAID, SELFPAY ==
[2022-03-30 10:45] LABS: Basophils # 0.1 10^3/uL (0.0-0.1); Basophils % 1.4 %; Eosinophils # 0.5 10^3/uL (0.0-0.8); Eosinophils % 6.5 %; Hematocrit 40.4 % (42.0-52.0); Hemoglobin 13.3 g/dL (11.7-16.6); Lymphocytes # 1.5 10^3/uL (0.8-4.8); Lymphocytes % 19.5 %; Mean Corpuscular HGB Conc 32.9 g/dL (30.0-36.0); Mean Corpuscular Hemoglobin 30.6 pg (28.0-34.0); Mean Corpuscular Volume 93.1 fl (80-94); Mean Platelet Volume 9.4 fL (7.4-10.4); Monocytes # 0.6 10^3/uL (0.2-0.9); Monocytes % 8.2 %; Neutrophils # 4.99 10^3/uL (1.8-7.7); Nucleated Red Blood Cells % 0 %; Platelet Count 331 10^3/cmm (130-400); Red Blood Count 4.34 10^6/uL (4.1-5.3); Red Cell Distribution Width 15.6 % (12.1-15.1); White Blood Count 7.8 10^3/uL (4.0-10.0)
[2022-03-30 11:00] LABS: Alanine Aminotransferase 23 U/L (0-41); Albumin Level 4.1 g/dL (3.5-5.2); Alkaline Phosphatase 98 U/L (40-130); Aspartate Amino Transferase 17 U/L (0-40); Blood Urea Nitrogen 13 mg/dL (6-20); C Reactive Protein 7.1 mg/L (0.0-4.9); Calcium 9.2 mg/dL (8.5-10.5); Carbon Dioxide 22 mmol/L (22-29); Chloride 102 mmol/L (98-107); Globulin 3.1 g/dL (1.3-4.6); Glomerular Filtration Rate 99.3 mL/min (90-130); Glucose 89 mg/dL (65-115); Osmolality Calculated 280 mOsm/kg (285-295); Sodium 135 mmol/L (136-145); Total Bilirubin 0.2 mg/dL (0.15-1.2); Total Protein 7.2 g/dL (6.6-8.7)
[2022-03-30 11:21] LABS: Vancomycin Trough 20.2 ug/mL (10-15)
== END 2022-04-27 23:59 | disposition home or self-care (01) ==
LOC: LAB 10:04
PROVIDERS: Visit Provider Hospitalist
DX: A49.02 Methicillin resistant Staphylococcus aureus infection, unspecified site (principal)
CPT/HCPCS: 36415; 80053; 80202; 85025; 86140